=== PATIENT | female | born 1975 | race Caucasian/White ===

== ENCOUNTER → 2018-06-15 13:48 | Outpatient (CLI) | payer OTHER, SELFPAY ==
[2018-06-15 14:41] LABS: ALB/GLOB Ratio 1.1 RATIO (0.9-2.4); AST(SGOT) 15 U/L (15-37); Alanine Aminotransfer ALT/SGPT 17 U/L (13-56); Albumin, Serum 3.8 g/dL (3.2-5.0); Alkaline Phosphatase 77 U/L (45-117); Anion Gap 5 (5-15); BUN 14 mg/dL (7-18); BUN/Creat Ratio 19.3 RATIO (10-20); Calcium,Total 8.5 mg/dL (8.5-10.1); Chloride 104 mmol/L (98-107); Creatinine, Serum 0.72 mg/dL (0.55-1.02); EST Glomerular Filtration Rate 93 mL/min (>60); Est Glom Filt Rate - Afr Amer 113 mL/min (>60); Globulin 3.6 g/dL (2.2-4.2); Glucose 98 mg/dL (74-106); Potassium 4.2 mmol/L (3.5-5.1); Protein, Total 7.4 g/dL (6.4-8.2); Sodium Level 138 mmol/L (136-145)
[2018-06-15 14:43] LABS: Absolute Lymphocyte Count 1.66 X10^3/ul (0.83-4.51); Absolute Neutrophil Count 6.4 X10^3/uL (2.0-7.7); Basophil# 0.06 X10^3/uL; Basophil% 0.6 % (0-1); Eosinophil# 0.21 X10^3/uL; Eosinophils% 2.3 % (0-5); Hematocrit 40.1 % (37-47); Hemoglobin 13.4 g/dl (12.0-15.0); Lymphocyte # 1.66 X10^3/ul (4.0); Lymphocyte % 17.9 % (19-41); Mean Corp Hgb Conc 33.4 g/gl (32-36); Mean Corpuscular Hgb 29.8 pg (27.0-32.0); Mean Corpuscular Volume 89.3 fL (81-99); Mean Platelet Vol. 10.4 fl (6.2-12.0); Monocyte# 0.96 X10^3/uL; Monocyte% 10.4 % (0-10); Neutrophil # 6.35 X10^3/uL (2.7-7.7); Neutrophil % 68.7 % (47-70); Platelet Count 337 K/mm3 (150-450); RBC Distribution Width SD 42.4 fl (35.1-43.9); Red Blood Count 4.49 M/mm3 (4.2-5.4); White Blood Count 9.3 K/mm3 (4.4-11.0)
[2018-06-15 14:49] LABS: POSITIVE COUNT NO; POSITIVE DIFFERENTIAL NO; POSITIVE MORPHOLOGY NO
== END ==
PROVIDERS: Family Provider Family Medicine; PCP Family Medicine; Visit Provider Family Medicine
DX: R10.12 Left upper quadrant pain (principal)
CPT/HCPCS: 36415; 80053; 85025

== ENCOUNTER → 2018-06-15 14:29 | Outpatient (CLI) | payer OTHER, SELFPAY ==
--- NOTE | 2018-06-15 14:36 | CT_ITS ---
STUDY: CT ABDOMEN AND PELVIS WITH CONTRAST REASON FOR EXAM: Female, 42 years old. Left upper quadrant and left flank pain. RADIATION DOSAGE (If Supplied By Facility): CTDIvol = ( 14.12 ) mGy, DLP = ( 982.05 ) mGycm TECHNIQUE: Transaxial images were obtained from the dome of the diaphragm to the symphysis pubis with oral contrast. 100ML IV/Oral Isovue 370 was administered. Sagittal and coronal images were reconstructed. Individualized dose optimization techniques were used for this CT. COMPARISON: None. FINDINGS: The visualized lung bases are unremarkable. The visualized portions of the heart are within normal limits. Normal liver. The gallbladder is relatively contracted and suboptimally examined. Normal spleen. Normal pancreas. Normal bilateral adrenal glands. Normal right kidney. Normal left kidney. No definite renal or ureteral stones are seen. There is no hydronephrosis on either side. Normal visualized stomach. Normal small intestine. Moderate fecal retention throughout the colon. The appendix is visualized and appears normal. Normal abdominal aorta. Normal inferior vena cava. Normal retroperitoneum. Normal urinary bladder. Normal visualized uterus. Normal abdominal wall. Degenerative disc disease at L5-S1. Otherwise normal osseous structures. CT/Abdomen/Pelvis WITH Contrast IMPRESSION: There is no definite abnormality seen. No renal or ureteral stones. Incompletely distended and suboptimally evaluated gallbladder. Moderate fecal retention. Electronically Signed: Wyatt Velazquez MD at 17:08 EDT , Service support ,
== END ==
PROVIDERS: Family Provider Family Medicine; PCP Family Medicine; Referring Provider Family Medicine; Visit Provider Family Medicine
DX: R10.12 Left upper quadrant pain (principal)
CPT/HCPCS: 74177; Q9967

== ENCOUNTER → 2020-06-12 | Outpatient (CLI) | payer OTHER, SELFPAY ==
[2016-12-05 08:32] VITALS: BMI 28.9
[2020-06-17 11:15] LABS: HPV Reflexed? NOT INDICATED
== END | disposition home or self-care (01) ==
LOC: LABSPEC 16:02
PROVIDERS: PCP Family Medicine; Visit Provider Obstetrics & Gynecology
DX: Z12.4 Encounter for screening for malignant neoplasm of cervix (principal)
CPT/HCPCS: 88175; G0145

== ENCOUNTER → 2020-07-01 15:34 | Outpatient (CLI) | payer OTHER, SELFPAY ==
--- NOTE | 2020-07-01 15:38 | BI_ITS ---
MAMMOGRAPHY - BILATERAL SCREENING REASON FOR EXAM: Female, 44 years old. Routine annual screening examination. PERTINENT HISTORY: Non-contributory. TECHNIQUE: Digital bilateral breast andrea (3D mammographic acquisition) in the CC and MLO projections. 2-D mediolateral oblique (MLO) and craniocaudad (CC) views of both breasts were obtained. CAD: Full Field Digital Mammography with Computer Added Detection was performed. COMPARISON: Comparison is made with prior study dated 09/01/2016. FINDINGS: Breast Composition: There are scattered areas of fibroglandular density. There are no dominant masses or suspicious calcifications. No other significant abnormalities are identified. There has been no significant change since the prior study. BI/SCRN MAMM (CAD)W/ANDREA BILAT IMPRESSION: Stable bilateral screening mammogram. Yearly follow-up mammogram recommended. (A) ASSESSMENT CATEGORY: BIRADS Category 1: Negative. A letter regarding these results will be sent to the patient by the facility within 30 days. Approximately 10% of breast cancers are not detected by mammography. A normal mammogram should not delay biopsy of a clinically suspicious abnormality. [id number] Electronically Signed: Jose Doyle MD at 8:06 EDT , Service support ,
== END ==
PROVIDERS: PCP Family Medicine; Referring Provider Obstetrics & Gynecology; Visit Provider Obstetrics & Gynecology
DX: Z12.31 Encounter for screening mammogram for malignant neoplasm of breast (principal)
CPT/HCPCS: 77063; 77067

== ENCOUNTER 2021-04-23 14:32 | Outpatient (CLI) | payer OTHER, SELFPAY ==
--- NOTE | 2021-04-23 | EMB_PTH ---
PATIENT: AMAURY FLETCHER LOC: LISA #:[id number] AGE/SX: 45/F ROOM: RE04/23/[address]: Dr. Hunter Purcell MD : 1975 BED: DIS: 04/23/2021 SPEC #: [id number] RECD: 04/23/21 15:26 STATUS: DAVID REHammad #: [id number] REMY: 04/23/21 00:[address]: Hunter Purcell DEPT: SURGICAL PATHOLOGY RECD BY: Mateus Farris ENTERED: 04/26/21 11:08 SP TYPE: ENDOM BX/C MARILYN DR: Dr. Chayo Pereira, DO Tissues: Endometrium, NOS Procedures: Surgery Specimen Level IV HEADER OPERATION: Endometrial biopsy PRE-OP DIAGNOSIS: Abnormal uterine bleeding TISSUE SUBMITTED: Endometrial biopsy MICROSCOPIC DIAGNOSIS Endometrial biopsy: Proliferative endometrium. SJ:lesa 04/27/2021 MICROSCOPIC DESCRIPTION Slides are reviewed. GROSS DESCRIPTION Received in fixative is one container labeled with the patient's name and designated EMB. The specimen consists of multiple fragments of hemorrhagic soft tissue mixed with mucoid tissue that in aggregate measure 2 x 2.5 x 0.1 cm. The specimen is totally submitted in one cassette. / SJ:lesa 04/26/2021 TC:4 CPT: 85976
== END 2021-04-23 23:59 | disposition home or self-care (01) ==
LOC: LABSPEC 14:33
PROVIDERS: PCP Family Medicine; Visit Provider Obstetrics & Gynecology
DX: N93.9 Abnormal uterine and vaginal bleeding, unspecified (principal)
CPT/HCPCS: 88305

== ENCOUNTER → 2021-08-06 | Outpatient (CLI) | payer OTHER, SELFPAY ==
[2021-08-06 17:16] LABS: Absolute Lymphocyte Count 1.57 X10^3/uL (0.83-4.51); Absolute Neutrophil Count 3.8 X10^3/uL (2.0-7.7); Basophil# 0.06 X10^3/uL; Eosinophil# 0.19 X10^3/uL; Hematocrit 40.1 % (37-47); Hemoglobin 13.4 g/dL (12.0-15.0); Lymphocyte # 1.57 X10^3/ul (0.83-4.51); Lymphocyte % 24.9 % (19-41); Mean Corp Hgb Conc 33.4 g/dL (32-36); Mean Corpuscular Volume 89.7 fL (81-99); Mean Platelet Vol. 10.2 fl (6.2-12.0); Monocyte# 0.67 X10^3/uL; Monocyte% 10.6 % (0-10); NRBC Flagged by Analyzer 0 % (0-5); Neutrophil # 3.81 X10^3/uL (2.7-7.7); Neutrophil % 60.3 % (47-70); Platelet Count 308 K/mm3 (150-450); RBC Distribution Width CV 12.9 % (11.6-14.6); RBC Distribution Width SD 42.7 fl (35.1-43.9); Red Blood Count 4.47 M/mm3 (4.2-5.4); White Blood Count 6.3 K/mm3 (4.4-11.0)
[2021-08-06 17:39] LABS: Erythrocyte Sedimentation Rate 7 mm/hr (0-30)
[2021-08-06 18:27] LABS: Albumin, Serum 3.8 g/dL (3.2-5.0); BUN 22 mg/dL (7-18); BUN/Creat Ratio 30.4 RATIO (10-20); Creatinine, Serum 0.72 mg/dL (0.55-1.02); EST Glomerular Filtration Rate 92 mL/min (>60); Est Glom Filt Rate - Afr Amer 111 mL/min (>60); Globulin 3.7 g/dL (2.2-4.2); Glucose 93 mg/dL (74-106); Protein, Total 7.5 g/dL (6.4-8.2)
[2021-08-06 18:28] LABS: AST(SGOT) 36 U/L (15-37); Alanine Aminotransfer ALT/SGPT 66 U/L (13-56); Alkaline Phosphatase 86 U/L (45-117); Anion Gap 3 (5-15); CRP < 2.90 mg/L (0.0-3.0); Chloride 105 mmol/L (98-107); Free T3 2.9 pg/mL (2.18-3.98); LDH 201 U/L (84-246); Potassium 3.8 mmol/L (3.5-5.1); Sodium Level 138 mmol/L (136-145); T4 Free Direct 1.08 ng/dL (0.76-1.46); Thyroid Stim Hormone (TSH) 0.81 uIU/mL (0.358-3.74)
[2021-08-09 15:08] LABS: Endomysial Antibody IgA Negative (Negative)
[2021-08-09 18:24] LABS: Immunoglobulin A 241 mg/dL (87-352); t-Transglutaminase IgA <2 U/mL (0-3)
[2021-08-16 11:26] LABS: Albumin 3.8 g/dL (2.9-4.4); Alpha-1-Globulins 0.3 g/dL (0.0-0.4); Alpha-2-Globulins 0.6 g/dL (0.4-1.0); Anti-Centromere B Ab <0.2 AI (0.0-0.9); Anti-Chromatin <0.2 AI (0.0-0.9); Anti-Jo <0.2 AI (0.0-0.9); Anti-Scleroderma-70 AB <0.2 AI (0.0-0.9); Beef <0.10 kU/L (Class 0); Corn <0.10 kU/L (Class 0); Cytoplasmic Ab (C-ANCA) <1:20 titer (Neg:<1:20); Egg, Whole <0.10 kU/L (Class 0); Gamma Globulin 1.2 g/dL (0.4-1.8); Immunoglobulin A 231 mg/dL (87-352); Immunoglobulin E 74 IU/mL (6-495); Immunoglobulin G 1188 mg/dL (586-1602); Immunoglobulin M 80 mg/dL (26-217); Milk (Cow) <0.10 kU/L (Class 0); PROEL- TOTAL PROTEIN 6.9 g/dL (6.0-8.5); Peanut <0.10 kU/L (Class 0); Pork <0.10 kU/L (Class 0); RNP Ab <0.2 AI (0.0-0.9); SJOGREN'S Anti-SS-A test < 0.2 AI (0.0-0.9); SJOGREN'S Anti-SS-B test < 0.2 AI (0.0-0.9); Smith Ab <0.2 AI (0.0-0.9); Soybean <0.10 kU/L (Class 0); Wheat <0.10 kU/L (Class 0)
[2021-08-16 18:02] LABS: Anti-dsDNA Ab <1 IU/mL (0-9); Chocolate <0.10 kU/L (Class 0); Perinuclear Ab (P-ANCA) <1:20 titer (Neg:<1:20)
== END | disposition home or self-care (01) ==
LOC: LAB 16:02
PROVIDERS: PCP Family Medicine; Visit Provider Internal Medicine Gastroenterology
DX: R10.9 Unspecified abdominal pain (principal)
CPT/HCPCS: 36415; 80053; 82533; 82784; 82785; 83516; 83615; 84165; 84439; 84443; 84481; 85025; 85652; 86003; 86005; 86140; 86225; 86235; 86255; 86256; 86334

== ENCOUNTER → 2021-08-12 | Outpatient (CLI) | payer OTHER, SELFPAY ==
--- NOTE | 2021-08-12 15:05 | BI_ITS ---
MAMMOGRAPHY - BILATERAL SCREENING REASON FOR EXAM: Female, 45 years old. Routine annual screening examination. PERTINENT HISTORY: Non-contributory. TECHNIQUE: Digital bilateral breast andrea (3D mammographic acquisition) in the CC and MLO projections. 2-D mediolateral oblique (MLO) and craniocaudad (CC) views of both breasts were obtained. CAD: Full Field Digital Mammography with Computer Added Detection was performed. COMPARISON: Mammogram from 07/01/2020, 09/01/2016. FINDINGS: Breast Composition: There are scattered areas of fibroglandular density. There are no dominant masses or suspicious calcifications. No other significant abnormalities are identified. There has been no significant change since the prior study. BI/SCRN MAMM (CAD)W/ANDREA BILAT IMPRESSION: Stable bilateral screening mammogram. Yearly follow-up mammogram recommended. (A) ASSESSMENT CATEGORY: BIRADS Category 1: Negative. A letter regarding these results will be sent to the patient by the facility within 30 days. Approximately 10% of breast cancers are not detected by mammography. A normal mammogram should not delay biopsy of a clinically suspicious abnormality. [id number] Electronically Signed: Liam Hernandez, at 15:04 EDT ,
== END | disposition home or self-care (01) ==
LOC: OPBI 15:05
PROVIDERS: PCP Family Medicine; Visit Provider Obstetrics & Gynecology
DX: Z12.31 Encounter for screening mammogram for malignant neoplasm of breast (principal)
CPT/HCPCS: 77063; 77067

== ENCOUNTER 2021-10-07 06:31 | Day surgery (SDC) | payer OTHER, SELFPAY ==
[2021-10-07] VITALS (7 sets, daily range): BP systolic 101–148; BP diastolic 67–87; PULSE 54–83; RESP 16–18; TEMP 36.3–36.4; O2SAT 99–100; BMI 30.9
--- NOTE | 2021-10-07 06:34 | PCM.HP.BLA ---
History and Physical Date of Admission: 10/07/21 AMAURY FLETCHER, is a 45 F who presents to the office today for Initial consult. Amaury established with this clinic 6.05.25 with referral from her PCP for evaluation of left abdominal pain that radiates to her back with onset 2018 with initial pain being in her left back. COVID in with subsequent tooth infection (dental work delayed because of COVID infection) and root canal with two antibiotics used; but then had increased LLQ pain. Has attempted FODMAP diet which was very helpful with pain; if she does not follow with diet triggers she has issues. PCP gave order for celiac testing but has not done this as she was told she needed to eat wheat for a week prior; she avoids wheat, but is not strict about this. Wheat and milk cause her to have diarrhea. Notes if she does not have enough fiber in her diet she has slower bowels, she manages her stools with diet. Allergy to wheat (phlegm, redness, brain fog) and dairy. Has begun avoiding apples, cabbage, peaches, peanutbutter. PMH anxiety; HTN; insomnia; MTHFR gene mutation (Dr. Fisher); uterine fibroids. FH includes sister with bowel issues and dairy intolerance. Her daughter has similar issues. CT abd/pel 06.15.18 finding moderate stool throughout colon; degenerative disc disease in the lower back. ROS Const Constitutional: No anorexia, fatigue, fever(s), weight change or sleep problems Eyes Eyes: No change in vision ENT ENT: No abnormal hearing, difficulty swallowing, mouth lesions, tongue swelling or throat swelling Resp Respiratory: No cough or shortness of breath Cardio Cardiology: No chest pain at rest, chest pain with exertion, shortness of breath or dyspnea on exertion Gastro GI: No difficulty swallowing Genitourinary-Female: No difficulty urinating or burning urination Musc Musculoskeletal: No joint pain, joint swelling, muscle weakness or decreased muscle mass Skin Skin: No hair loss in leg, yellowing of the eye, itchy eyes, rash, skin ulcer or skin swelling Neuro Neurology: No abnormal hearing, abnormal movements, confusion, unsteady gait/balance or memory loss Psych Psychiatric: No anxiety, No confusion and No memory loss Endo Endocrine: No fatigue or weight change Aller/Imm Allergy/Immunologic: No itchy eyes, throat swelling or tongue swelling Anthony/Lymp Hematologic/Lymphatic: No easy bleeding, easy bruising or enlarged lymph nodes Exam Const General: cooperative and comfortable Nutritional Appearance: average body habitus and well nourished HENMT Head: normal to inspection Ears: hearing grossly normal bilaterally Nose: external nose normal Face and sinus: normal facial exam Mouth: oral mucosae normal Throat: posterior oropharynx normal Eyes General: appearance normal, both eyes and all related structures Neck Neck: normal visual inspection Chest Chest palpation & inspection: normal inspection of the chest and normal palpation of entire chest wall Resp Effort & Inspection: normal respiratory effort Auscultation: Bilateral: Clear to Auscultation Cardio Palpation: normal PMI Rate: regular rate Rhythm: regular rhythm GI Inspection: normal to inspection Auscultation: normal bowel sounds Percussion: normal to percussion Palpation: no hepatosplenomegaly Skin General: no rashes or lesions noted Neuro General: patient alert Extrem General: normal to inspection Psych Affect: normal affect Quality Reporting Tobacco Screening ([facility]) Smoking Status: Former smoker Assessment and Plan Assessment and Plan (1) Abdominal pain: ?Status:?Acute ? ? ? Orders:?Orders: ? Colonoscopy Today ? ? ? EGD Today ? ? ? Comprehensive Metabolic Profil Today ? ? ? CRP Today ? ? ? LDH Today ? ? ? CBC W/Diff, Automated Today ? ? ? Erythrocyte Sed Rate Today ? ? ? Allergen, Rast Food Profile Today ? ? ? JAVAN Comprehensive Panel Today ? ? ? ANCA Today ? ? ? Celiac Disease Profile Today ? ? ? Immunoglobulins G/A/M/E Today ? ? ? BONNIE + Protein Elect, Serum Today ? ? ? CORTISOL SERUM Today ? ? ? Free T3 Today ? ? ? T4 Free Direct Today ? ? ? Thyroid Stim Hormone (TSH) Today ?Plan - Dr. Guerra Friend, DO: I am not sure if her abdominal pain has to do with constipation.? She does have what appears to be a gluten intolerance.? She should get evaluated for celiac disease with biochemical testing and biopsies.? She should also be evaluated for eosinophilic disease such as eosinophilic gastroenteritis.? We will check for ANCA associated vasculitis is with blood work and possibly imaging.? Due to the fact that she is having weight issues we will check a serum cortisol along with thyroid studies.? She will undergo an upper endoscopy for evaluation of her upper lower GI tract. I have re-examined the patient. There are no clinical changes since date of exam.
[2021-10-07] MEDS: Lactated Ringers 1,000 ML 15 ML IV (06:51)
--- NOTE | 2021-10-07 07:15 | COLBX_PTH ---
PATIENT: AMAURY FLETCHER LOC: EN U#:[id number] AGE/SX: 45/F ROOM: RE10/07/[address]: Dr. Charlie Juarez DO : 1975 BED: DIS: 10/07/2021 SPEC #: [id number] RECD: 10/07/21 10:17 STATUS: DAVID SCOOBY #: [id number] REMY: 10/07/21 07:[address]: Charlie Juarez DEPT: SURGICAL PATHOLOGY RECD BY: Enedina Hernandez ENTERED: 10/07/21 10:56 SP TYPE: COLON BX OTHR DR: Dr. Diandra Zeng MD Tissues: A - Duodenum, NOS B - Gastric mucous membrane C - Esophagus, NOS D - Ileum, NOS E - COLON BIOPSY F - Sigmoid colon biopsy Procedures: Special Stain Group II Surgery Specimen Level IV Alcian Blue/PAS (control) HEADER OPERATION: Colonoscopy, EGD ([facility]) with biopsies PRE-OP DIAGNOSIS: Abdominal pain TISSUE SUBMITTED: A - Duodenum biopsy, B - Antrum biopsy for H. pylori and path, C - Distal esophagus biopsy, D - Terminal ileum biopsy, E - Hepatic flexure biopsy, F - Sigmoid biopsy MICROSCOPIC DIAGNOSIS A. Duodenum, biopsy: No pathologic change. B. Gastric antrum, biopsy: Mild chronic gastritis. See comment. C. Distal esophagus, biopsy: Fragments of gastric mucosa with mild chronic inflammation. No evidence of goblet cell metaplasia. See comment. D. Terminal ileum, biopsy: No pathologic change. See comment. E. Colon at hepatic flexure, biopsy: No pathologic change. F. Sigmoid colon, biopsy: No pathologic change. AM:lesa 10/08/2021 COMMENT B. The results of immunohistochemistry for Helicobacter pylori will be reported separately ([id number]). C. Alcian blue/PAS stain with matched control supports the above diagnosis. D. Benign lymphoid aggregates are present. MICROSCOPIC DESCRIPTION Slides are reviewed. GROSS DESCRIPTION A - Received in fixative is one container labeled with the patient's name and designated duodenum biopsy. The specimen consists of two irregular fragments of light caldwell soft tissue that in aggregate measure 0.8 x 0.7 x 0.2 cm. The specimen is totally submitted in one cassette. B - Received in fixative is one container labeled with the patient's name and designated antrum biopsy. The specimen consists of multiple irregular fragments of light caldwell soft tissue that in aggregate measure 1 x 0.5 x 0.1 cm. The specimen is totally submitted in one cassette. C - Received in fixative is one container labeled with the patient's name and designated distal esophagus biopsy. The specimen consists of two irregular fragments of light caldwell soft tissue that in aggregate measure 1.5 x 0.3 x 0.1 cm. The specimen is totally submitted in one cassette. D - Received in fixative is one container labeled with the patient's name and designated terminal ileum biopsy. The specimen consists of multiple irregular fragments of light caldwell soft tissue that in aggregate measure 1 x 0.5 x 0.1 cm. The specimen is totally submitted in one cassette. E - Received in fixative is one container labeled with the patient's name and designated hepatic flexure biopsy. The specimen consists of two irregular fragments of light caldwell soft tissue that in aggregate measure 0.8 x 0.2 x 0.1 cm. The specimen is totally submitted in one cassette. F - Received in fixative is one container labeled with the patient's name and designated sigmoid biopsy. The specimen consists of multiple irregular fragments of light caldwell soft tissue that in aggregate measure 1 x 0.2 x 0.1 cm. The specimen is totally submitted in one cassette. / AM:lesa 10/07/2021 TC:3 CPT: 53987 x6, 35397
--- NOTE | 2021-10-07 07:15 | IMM_PTH ---
PATIENT: AMAURY FLETCHER LOC: EN U#:[id number] AGE/SX: 45/F ROOM: RE10/07/[address]: Dr. Charlie Juarez DO : 1975 BED: DIS: 10/07/2021 SPEC #: [id number] RECD: 10/07/21 11:37 STATUS: DAVID REQ #: [id number] REMY: 10/07/21 07:[address]: Charlie Juarez DEPT: IMMUNOHISTOCHEMISTRY RECD BY: Niecy Kessler ENTERED: 10/07/21 11:38 SP TYPE: IMMUNO OTHR DR: Dr. Diandra Zeng MD Tissues: B - Stomach, NOS Procedures: H Pylori (initial) PHYSICIAN & [place] [phone] SPECIMEN INFORMATION: Tissue Source: B ? Antrum biopsy Clinical Info: Abdominal pain Specimen Number: [id number] CPT code: 11783 METHODOLOGY: Deparaffinized sections of prefer/formalin-fixed tissue or PAP/DQ stained slides are incubated with monoclonal/polyclonal antibodies/oligonucleotide probes. Localization is made via biotin free immunoperoxidase method. Appropriate controls are performed and reacted as expected. Results on target cell population are indicated in the following table: RESULTS: ANTIBODY / CLONE RESULT Block B H Pylori (polyclonal) negative These tests were developed and their performance characteristics determined by [facility]. They may not have been cleared or approved by the U.S. Food and Drug Administration. The FDA has determined that such clearance or approval is not necessary. The above immunohistochemical/dualISH markers are ordered and reviewed by the Pathologist. INTERPRETATION: B. Antrum, biopsy: Negative for Helicobacter pylori organisms. AM:lesa 10/08/2021
--- NOTE | 2021-10-07 08:04 | OP.EGD_ITS ---
Patient Name: Radha Michaels Procedure Date: 10/07/2021 7:22 AM Date of : 1975 Age: 45 Procedure: Upper GI endoscopy Indications: Functional Dyspepsia, Failure to respond to medical treatment Providers: Charlie Juarez DO Medicines: Monitored Anesthesia Care Patient Profile: This is a 45 year old female. Refer to note in patient chart for documentation of history and physical. Patient has symptoms of chronic abdominal cramping, chronic epigastric abdominal pain and chronic dyspepsia. Complications: No immediate complications. Procedure: Pre-Anesthesia Assessment: - Prior to the procedure, a History and Physical was performed, and patient medications and allergies were reviewed. The risks and benefits of the procedure and the sedation options and risks were discussed with the patient. All questions were answered and informed consent was obtained. Patient identification and proposed procedure were verified by the physician in the pre-procedure area. Mental Status Examination: alert and oriented. Airway Examination: normal oropharyngeal airway and neck mobility. Respiratory Examination: clear to auscultation. CV Examination: normal. Prophylactic Antibiotics: The patient does not require prophylactic antibiotics. Prior Anticoagulants: The patient has taken no previous anticoagulant or antiplatelet agents. After reviewing the risks and benefits, the patient was deemed in satisfactory condition to undergo the procedure. The anesthesia plan was to use moderate sedation / analgesia (conscious sedation). Immediately prior to administration of medications, the patient was re-assessed for adequacy to receive sedatives. The heart rate, respiratory rate, oxygen saturations, blood pressure, adequacy of pulmonary ventilation, and response to care were monitored throughout the procedure. The physical status of the patient was re-assessed after the procedure. After obtaining informed consent, the endoscope was passed under direct vision. Throughout the procedure, the patient's blood pressure, pulse, and oxygen saturations were monitored continuously. The colonoscope was introduced through the mouth, and advanced to the second part of duodenum. The upper GI endoscopy was accomplished without difficulty. The patient tolerated the procedure well. Scope In: Scope Out: 7:42:45 AM Findings: The Z-line was irregular and was found 37 cm from the incisors. Biopsies were taken with a cold forceps for histology. Verification of patient identification for the specimen was done. Estimated blood loss was minimal. Patchy mildly erythematous mucosa without bleeding was found in the gastric antrum. Biopsies were taken with a cold forceps for histology. Verification of patient identification for the specimen was done. Estimated blood loss was minimal. The second portion of the duodenum was normal. Biopsies were taken with a cold forceps for histology. Verification of patient identification for the specimen was done. Estimated blood loss was minimal. Impression: - Z-line irregular, 37 cm from the incisors. Biopsied. - Erythematous mucosa in the antrum. Biopsied. - Normal second portion of the duodenum. Biopsied. Recommendation: - Written discharge instructions were provided to the patient. - The signs and symptoms of potential delayed complications were discussed with the patient. - Patient has a contact number available for emergencies. - Return to normal activities tomorrow. - Resume previous diet. - Continue present medications. - Await pathology results. Procedure Code(s): --- Professional --- 79042, Esophagogastroduodenoscopy, flexible, transoral; with biopsy, single or multiple CPT copyright 2017 [employer]. All rights reserved. The codes documented in this report are preliminary and upon executive business coach review may be revised to meet current compliance requirements. Charlie Juarez DO 10/07/2021 8:04:48 AM This report has been signed electronically. Number of Addenda: 1 Note Initiated On: 10/07/2021 7:22 AM Addendum Number: 1 Addendum Date: 12/09/2021 6:29:22 AM MAC was used as sedation for this procedure. Charlie Juarez DO 12/09/2021 6:29:26 AM This report has been signed electronically.
--- NOTE | 2021-10-07 08:05 | OP.CCLET_ITS ---
12/09/2021 Diandra Zeng [place] [id number] [place] [address] Re : Upper GI endoscopy procedure for Radha Michaels Dear Dr. Zeng This procedure was performed on October. My impressions and recommendations are as follows: Impressions : - Z-line irregular, 37 cm from the incisors. Biopsied. - Erythematous mucosa in the antrum. Biopsied. - Normal second portion of the duodenum. Biopsied. Recommendations : - Written discharge instructions were provided to the patient. - The signs and symptoms of potential delayed complications were discussed with the patient. - Patient has a contact number available for emergencies. - Return to normal activities tomorrow. - Resume previous diet. - Continue present medications. - Await pathology results. My findings are described in the full procedure note, which is enclosed. If I can be of further assistance, please feel free to contact me at . Sincerely, Charlie Juarez, 10/07/2021 8:04:48 AM This report has been signed electronically.
--- NOTE | 2021-10-07 08:11 | OP.COLON_ITS ---
Patient Name: Radha Michaels Procedure Date: 10/07/2021 7:43 AM Date of : 1975 Age: 45 Procedure: Colonoscopy Indications: Abdominal pain in the left lower quadrant, Abdominal pain in the left upper quadrant Providers: Charlie Juarez DO Medicines: Monitored Anesthesia Care Patient Profile: This is a 45 year old female. Refer to note in patient chart for documentation of history and physical. Patient has symptoms of chronic abdominal cramping, chronic epigastric abdominal pain and chronic dyspepsia. Last Colonoscopy: date unknown. Unable to locate last colonoscopy report. Complications: No immediate complications. Procedure: Pre-Anesthesia Assessment: - Prior to the procedure, a History and Physical was performed, and patient medications and allergies were reviewed. The risks and benefits of the procedure and the sedation options and risks were discussed with the patient. All questions were answered and informed consent was obtained. Patient identification and proposed procedure were verified by the physician in the pre-procedure area. Mental Status Examination: alert and oriented. Airway Examination: normal oropharyngeal airway and neck mobility. Respiratory Examination: clear to auscultation. CV Examination: normal. Prophylactic Antibiotics: The patient does not require prophylactic antibiotics. Prior Anticoagulants: The patient has taken no previous anticoagulant or antiplatelet agents. After reviewing the risks and benefits, the patient was deemed in satisfactory condition to undergo the procedure. The anesthesia plan was to use moderate sedation / analgesia (conscious sedation). Immediately prior to administration of medications, the patient was re-assessed for adequacy to receive sedatives. The heart rate, respiratory rate, oxygen saturations, blood pressure, adequacy of pulmonary ventilation, and response to care were monitored throughout the procedure. The physical status of the patient was re-assessed after the procedure. - General anesthesia under the supervision of a TRACTOR CRANE ENGINEER was determined to be medically necessary for this procedure based on review of the patient's medical history, medications, and prior anesthesia history. After I obtained informed consent, the scope was passed under direct vision. Throughout the procedure, the patient's blood pressure, pulse, and oxygen saturations were monitored continuously. The colonoscope was introduced through the anus and advanced to the cecum, identified by appendiceal orifice and ileocecal valve. The colonoscopy was performed without difficulty. The patient tolerated the procedure well. The quality of the bowel preparation was good. Scope In: 7:45:13 AM Scope Withdrawal Time 0 hours 10 minutes 9 seconds Scope Out: 8:00:07 AM Total Procedure Duration Time 0 hours 14 minutes 54 seconds Findings: The perianal and digital rectal examinations were normal. An area of mildly congested mucosa was found in the sigmoid colon, at the splenic flexure and at the hepatic flexure. Biopsies were taken with a cold forceps for histology. Verification of patient identification for the specimen was done. Estimated blood loss was minimal. The terminal ileum appeared normal. Biopsies were taken with a cold forceps for histology. Verification of patient identification for the specimen was done. Estimated blood loss was minimal. Impression: - Congested mucosa in the sigmoid colon, at the splenic flexure and at the hepatic flexure. Biopsied. - The examined portion of the ileum was normal. Biopsied. Recommendation: - Discharge patient to home. - Resume previous diet. - Continue present medications. - Await pathology results. - Repeat colonoscopy in 5 years for surveillance. Procedure Code(s): --- Professional --- 71398, Colonoscopy, flexible; with biopsy, single or multiple CPT copyright 2017 [employer]. All rights reserved. The codes documented in this report are preliminary and upon assistant womens volleyball coach review may be revised to meet current compliance requirements. Charlie Juarez DO 10/07/2021 8:10:46 AM This report has been signed electronically. Number of Addenda: 1 Note Initiated On: 10/07/2021 7:43 AM Addendum Number: 1 Addendum Date: 12/09/2021 6:29:35 AM MAC was used as sedation for this procedure. Charlie Juarez DO 12/09/2021 6:29:39 AM This report has been signed electronically.
--- NOTE | 2021-10-07 08:12 | OP.CCLET_ITS ---
12/09/2021 Diandra Zeng [place] [id number] [address] Re : Colonoscopy procedure for Radha Joséultz Dear Dr. Zeng This procedure was performed on October. My impressions and recommendations are as follows: Impressions : - Congested mucosa in the sigmoid colon, at the splenic flexure and at the hepatic flexure. Biopsied. - The examined portion of the ileum was normal. Biopsied. Recommendations : - Discharge patient to home. - Resume previous diet. - Continue present medications. - Await pathology results. - Repeat colonoscopy in 5 years for surveillance. My findings are described in the full procedure note, which is enclosed. If I can be of further assistance, please feel free to contact me at . Sincerely, Charlie Juarez, 10/07/2021 8:10:46 AM This report has been signed electronically.
== END 2021-10-07 08:51 | disposition home or self-care (01) ==
LOC: EN 06:32 → AC 06:32
PROVIDERS: PCP Family Medicine; Referring Provider Family Medicine; Visit Provider Internal Medicine Gastroenterology
PROC: 0DJD8ZZ Inspection of Lower Intestinal Tract, Via Natural or Artificial Opening Endoscopic (ICD-10-PCS; CPT 45378; principal; 2021-10-07 07:10)
DX: K29.70 Gastritis, unspecified, without bleeding (principal); K20.90 Esophagitis, unspecified without bleeding; K63.89 Other specified diseases of intestine; I10 Essential (primary) hypertension; K30 Functional dyspepsia; Z87.891 Personal history of nicotine dependence
CPT/HCPCS: 45380; 43239; 88305; 88313; 88342; J7120; J2405

== ENCOUNTER → 2022-07-04 | Outpatient (CLI) | payer OTHER, SELFPAY ==
[2022-07-11 14:08] LABS: HPV APTIMA, High Risk Negative (Negative)
== END | disposition home or self-care (01) ==
LOC: LABSPEC 16:54
PROVIDERS: PCP Family Medicine; Visit Provider Nurse Practitioner Women's Health
DX: Z12.4 Encounter for screening for malignant neoplasm of cervix (principal)
CPT/HCPCS: 87624; 88175; G0145

== ENCOUNTER → 2022-08-16 | Outpatient (CLI) | payer OTHER, SELFPAY ==
--- NOTE | 2022-08-16 14:17 | BI_ITS ---
MAMMOGRAPHY - BILATERAL SCREENING REASON FOR EXAM: Female, 46 years old. Routine annual screening examination. PERTINENT HISTORY: Non-contributory. TECHNIQUE: Digital bilateral breast andrea (3D mammographic acquisition) in the CC and MLO projections. 2-D mediolateral oblique (MLO) and craniocaudad (CC) views of both breasts were obtained. CAD: Full Field Digital Mammography with Computer Added Detection was performed. COMPARISON: Comparison is made with prior study dated August 12, 2021 and July 01, 2020. FINDINGS: Breast Composition: There are scattered areas of fibroglandular density. There are no dominant masses or suspicious calcifications. No other significant abnormalities are identified. There has been no significant change since the prior study. BI/SCRN MAMM (CAD)W/ANDREA BILAT IMPRESSION: Stable bilateral screening mammogram. Yearly follow-up mammogram recommended. (A) ASSESSMENT CATEGORY: BIRADS Category 1: Negative. A letter regarding these results will be sent to the patient by the facility within 30 days. Approximately 10% of breast cancers are not detected by mammography. A normal mammogram should not delay biopsy of a clinically suspicious abnormality. [id number] Electronically Signed: Jose Doyle MD at 14:58 EDT ,
== END | disposition home or self-care (01) ==
LOC: OPBI 14:17
PROVIDERS: PCP Family Medicine; Visit Provider Nurse Practitioner Women's Health
DX: Z12.31 Encounter for screening mammogram for malignant neoplasm of breast (principal)
CPT/HCPCS: 77063; 77067

== ENCOUNTER → 2023-08-28 | Outpatient (CLI) | payer OTHER, SELFPAY ==
--- NOTE | 2023-08-28 10:27 | BI_ITS ---
MAMMOGRAPHY - BILATERAL SCREENING REASON FOR EXAM: Female, 47 years old. Routine annual screening examination. PERTINENT HISTORY: Non-contributory. TECHNIQUE: Digital bilateral breast andrea (3D mammographic acquisition) in the CC and MLO projections. 2-D mediolateral oblique (MLO) and craniocaudad (CC) views of both breasts were obtained. CAD: Full Field Digital Mammography with Computer Added Detection was performed. COMPARISON: Comparison is made with prior study dated August 16, 2022 and August 12, 2021. FINDINGS: Breast Composition: There are scattered areas of fibroglandular density. There are no dominant masses or suspicious calcifications. No other significant abnormalities are identified. There has been no significant change since the prior study. BI/SCRN MAMM (CAD)W/ANDREA BILAT IMPRESSION: Stable bilateral screening mammogram. Yearly follow-up mammogram recommended. (A) ASSESSMENT CATEGORY: BIRADS Category 1: Negative. A letter regarding these results will be sent to the patient by the facility within 30 days. Approximately 10% of breast cancers are not detected by mammography. A normal mammogram should not delay biopsy of a clinically suspicious abnormality. [id number] Electronically Signed: Jose Doyle MD at 12:49 EDT ,
== END | disposition home or self-care (01) ==
LOC: OPBI 10:27
PROVIDERS: PCP Family Medicine; Referring Provider Nurse Practitioner Women's Health; Visit Provider Nurse Practitioner Women's Health
DX: Z12.31 Encounter for screening mammogram for malignant neoplasm of breast (principal)
CPT/HCPCS: 77063; 77067

== ENCOUNTER 2024-09-27 15:30 | Outpatient (RCR) | payer OTHER, SELFPAY ==
--- NOTE | 2024-09-11 08:50 | HP.PTEVAL ---
Patient's Visit Information Visit Information Visit Information: AMAURY FLETCHER is a 48 year old F referred to Physical Therapy by Dr. Carlyn Taylor MD with a diagnosis of Neck pain with R UE radiculopathy. Date of Evaluation: 09/10/24 Physical Therapist: Taz Batres, PT, ATC Visit Plan Frequency: 2x /Week Duration: 2-4 Weeks Plan: Trialed Ctx with 16#/8#, 30 sec/10 sec x 10 min. Assess benefit of Tx. Recheck c/s retraction. Consider using DTR next visit. Subjective Subjective: Pt reports she has had neck pain and intermittent R UE numbness for 3-4 years. Pt notes the pain was not as bad at that time, but has progressively worsened over this span. Pt admits she has put this off for some time secondary to having younger kids and and busy life style. Pt reports she has the most pain with watching TV, sleeping, and while driving. Pt denies any trauma or injury to her neck and R UE at this time. Pt also notes she gets CHUA's at the base of her head. Pt reports her headaches will radiate up the aback of her head. Pt notes she has had an x-ray which reveals DDD. Pt [id number] she does have sleep difficulty secondary to pain. Pt reports No PMHx of neck pain or R UE pain. Pt reports she doesnt really have pain as long as she keeps moving. 1/10 pain currently with prednisone, 4/10 at worst. Pain Neck pain: Pain Intensity (Out of 10): 1 Pain Intensity Range: 4 Objective Objective: Neuro: R UE c6 dermtome is hyposensitive to light touch. All other B UE sensation is WNL to light touch. Palpation: Sig muscle guarding throughout lower cervical spine. No obvious deformity noted at this time. MMT: B UE's are grossly rated at 5/5 throughout ROM: Pt is moderately limited with B SB, retraction, and extension ROM. All other motions are WNL Repeated movements: RPIS 10x3 NE, RRIS 10x3 provoked pain, referred to scap region. Manual traction decreased pain. Balance/Special Test Scores Oswestry Neck Score: 20 Goals Goal 1:: Decrease neck pain x 50% to aid with sleep Goal Time Frame: 4-6 Weeks Goal 2:: Decrease the Frequency and intensity of R UE radiculopathy to aid with IADL's Goal Time Frame: 4-6 Weeks Goal 3:: I with HEP Goal Time Frame: 4-6 Weeks Rehabilitation Potential Physical Therapy Diagnosis: Pt has neck pain and R UE radiculopathy secondary to c/s disc derangement Rehabilitation Potential: Good Anticipated Interventions Patient/Client Instruction: Educate patient on: Condition and Plan of Care For the Purpose of:: To improve self management Therapeutic Exercise to Include: Strength training, Endurance training, Balance training, Active ROM and Ayse Exercises For the Purpose of:: To decrease pain, To increase ROM and To improve muscle performance and motor function Intermittent cervical traction: Yes For the Purpose of:: To decrease pain Text: Thank you for the opportunity to evaluate your patient. For Medicare and Medicare HMO plans, please review the plan of care and approve it. It will need to be FAXED BACK to us at [phone] for Medicare purposes. For Medicare only, by signing this I certify the plan of care. Please let me know if there are questions or concerns regarding this plan of care. Physician Signature: Date:
--- NOTE | 2024-09-27 15:58 | HP.PTREVAL ---
Re-Evaluation Intro: Dr. Carlyn Taylor MD, It has been my pleasure to treat AMAURY FLETCHER over the last 5 visits for Neck pain with R UE radiculopathy. Please see the progress note below for an update on the physical therapy plan of care! Subjective Subjective: Pt reports R arm is still going numb almost every morning. Objective Objective/Function: Neck pain is now 1/10 R UE radiculopathy has only temporarily improved Plan Plan Plan: 09/27/24- Cont with c/s Tx at this time. Incorporate scap stab ex's at this time. Hold scheduling until after next DrElia visit Balance/Gait/Functional tests Balance/Special Test Scores Oswestry Neck Score: 20 Goals Goals Goal 1:: Decrease neck pain x 50% to aid with sleep Goal Time Frame: 4-6 Weeks Goal Progress: Goal Met Goal 2:: Decrease the Frequency and intensity of R UE radiculopathy to aid with IADL's Goal Time Frame: 4-6 Weeks Goal Progress: Not Progressing Goal 3:: I with HEP Goal Time Frame: 4-6 Weeks Goal Progress: Goal Met Anticipated Interventions Anticipated Interventions Patient/Client Instruction: Educate patient on: Condition and Plan of Care For the Purpose of:: To improve self management Therapeutic Exercise to Include: Strength training, Endurance training, Balance training, Active ROM and Ayse Exercises For the Purpose of:: To decrease pain, To increase ROM and To improve muscle performance and motor function Intermittent cervical traction: Yes For the Purpose of:: To decrease pain Re-Evaluation Ending Re-evaluation ending: Please do not hesitate to contact me at [phone] by phone or if you have questions or concerns regarding this new plan of care! Sincerely, Taz Batres, PT, ATC
--- NOTE | 2024-12-10 11:42 | HP.PT.NRP ---
Patient Information Patient Information: AMAURY FLETCHER was seen in my office for initial evaluation on 09/10/24. The following Plan of Care was established for this patient: POC Established Initial Frequency: 2x /Week Initial Duration: 2-4 Weeks Anticipated Interventions Patient/Client Instruction: Educate patient on: Condition and Plan of Care For the Purpose of:: To improve self management Therapeutic Exercise to Include: Strength training, Endurance training, Balance training, Active ROM and Ayse Exercises For the Purpose of:: To decrease pain, To increase ROM and To improve muscle performance and motor function Intermittent cervical traction: Yes For the Purpose of:: To decrease pain Last Seen Last Seen: This patient was last seen in our office . Pertinent comments regarding their Physical therapy will appear below: Pt has not returned for greater than 30 days and is discontinued at this time. At this point I will be discontinuing this patient from physical therapy. I would be happy to see this patient again in the future if found appropriate by the physician. Thank you! Taz Batres, PT, ATC Balance/Gait/Functional tests Balance/Special Test Scores Oswestry Neck Score: 20
== END 2024-09-27 19:00 | disposition home or self-care (01) ==
LOC: PT 15:30
PROVIDERS: PCP Internal Medicine; Referring Provider Internal Medicine; Visit Provider Internal Medicine
DX: R20.0 Anesthesia of skin (principal); M50.30 Other cervical disc degeneration, unspecified cervical region
CPT/HCPCS: 97012; 97140; 97161; 97530

== ENCOUNTER 2025-02-12 12:37 | Emergency (ER) | payer OTHER, SELFPAY ==
[2025-02-12 12:38] VITALS: BP 185/94; PULSE 96; RESP 18; TEMP 36.8; O2SAT 100; BMI 34.7
--- NOTE | 2025-02-12 13:08 | ED.VIS.DENTA ---
HPI History of Present Illness Chief Complaint: Dental Detail of Chief Complaint: Dental pain and intermittent dizziness Informant: patient Onset/Context/Timing Onset: Days ( Dental pain for days. She is scheduled for root canal on Monday) Context: Sudden Onset Timing: Continuous and Waxes and wanes Quality: Pain tooth #30 and vertigo Location: Dental and peripheral vertigo Current Severity: Mild Maximum Severity: Severe Worsened by: Cold and hot liquids and change in head position Associated Symptoms Assocated Symptom - Dental: cold sensitivity and hot sensitivity; Negative for fever, jaw swelling or face swelling Narrative Narrative: Patient is a 49-year-old woman. She has history of dental infections. She is seeing her dentist. She is scheduled for root canal on Monday. She has increased pain with cold and hot. She reports more cold and hot. This been going on for 1+ weeks. She denies fever, chills night sweats. She denies inability to open or close her mouth completely. She denies change in voice. Denies drooling. She denies inability to drink liquids or eat solids. She denies facial swelling. She does complain of pain in the right occipital area as well as right ear. She has a cottonball in her external auditory canal on the right. She has no history of medic fever heart murmur. She denies fever or chills. Prior similar symptoms: Yes Recent Illness/Hospitalization: No 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 Insomnia Hypertension Home Medications ?Medication ?Instructions ?Recorded ?Last Taken ?Type ginkgo biloba leaf extract 60 mg 120 mg PO DAILY 11/29/16 Unknown History tablet ginseng 100 mg capsule 100 mg PO DAILY 11/29/16 Unknown History loratadine 10 mg tablet (Allergy 10 mg PO DAILY 11/29/16 Unknown History Relief (loratadine)) melatonin ER 10 mg-pyridoxine HCl 1 ea PO QHS 11/29/16 Unknown History (B6) 10 mg tab, immed-extend release s-adenosylmethionine 400 mg tablet 400 mg PO DAILY 11/29/16 Unknown History (NAE-e) multivitamin 1 tab PO DAILY 10/06/21 Unknown History black cohosh 20 mg tablet 20 mg PO DAILY 07/04/22 Unknown History diazepam 2 mg tablet (Valium) 2 mg PO TID #9 tabs 02/12/25 Unknown Rx oxycodone-acetaminophen 5 mg-325 1 tab PO Q8H PRN pain 4 days #10 02/12/25 Unknown Rx mg tablet (Percocet) tabs Allergy/AdvReac Type Severity Reaction Status Date / Time milk (dairy) Allergy Intermediate NEEDS Verified 02/12/25 12:41 FOLLOW-UP wheat Allergy Intermediate UNK Verified 02/12/25 12:41 horse dander Allergy Hives Verified 02/12/25 12:41 Horse/Equine Containing Allergy Hives Verified 02/12/25 12:41 Products aspirin AdvReac NOSEBLEEDS Verified 02/12/25 12:41 Family History Mother High cholesterol Sister Pulmonary embolism IBS (irritable bowel syndrome) Thrombophilia associated with 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 Surgical History S/P colonoscopy S/P D&C (status post dilation and curettage) H/O cervical polypectomy H/O section Social History household members: spouse and children housing: house number of children: 3 current occupational status: employed current occupation: [employer] Smoking Status: Never smoker alcohol intake: never substance use type: does not use seatbelt use: always do you feel safe at home: Yes 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 ROS ROS ED Constitutional Constitutional ED: Denies chills, fever(s), subjective or sweats Eyes Eyes: Denies blurry vision or change in vision ENT ENT ED: Reports ear pain right and other Details: And HPI narrative ; Denies rhinorrhea or sore throat Cardiovascular Cardiovascular: Denies chest pain or palpitations Respiratory/Chest Respiratory/Chest: Denies cough or dyspnea Gastrointestinal Gastrointestinal: Denies abdominal pain, nausea or vomiting Integumentary Denies rash Neurologic Neurologic: Reports headache(s); Denies paresthesias or weakness Psychiatric Psychiatric: Reports anxiety Endocrine Endocrinology: Denies cold intolerance or heat intolerance Hematologic/Lymphatic Hematologic/Lymphatic: Denies easy bleeding or easy bruising EXAM Physical Exam Const Vital Signs: 02/12/25 12:38 Temperature 98.3 F Temperature Source Oral Pulse Rate 96 Respiratory Rate 18 Blood Pressure 185/94 H Blood Pressure Mean 124 Pulse Ox 100 Oxygen Delivery Method Room Air Positive well nourished and well developed General Appearance ED: well developed and NAD HEENT HEENT Narrative: Ears are normal. External auditory canals normal. TM is normal on the right. Posterior pharynx erythema or exudate. Uvula midline. No deviation tongue or protrusion. She has a On tooth #30. There is no periodontal swelling. There is no abnormality of the floor of the mouth. There is no submandibular lymphadenopathy or anterior cervical lymphadenopathy. Neck is supple. She has no dermatologic lesions noted. Eyes PERRL and EOMs intact bilaterally General Eye ED: Negative for pale conjunctiva or scleral icterus Neck no lymphadenopathy, supple and no JVD Lymph Lymphatic: no lymphadenopathy noted Resp normal respiratory effort and clear to auscultation bilaterally Cardio regular rate, regular rhythm, S1 normal heart sound, S2 normal heart sound and no murmurs Extremity normal to inspection Neuro oriented x3 and CN's II-XII intact bilaterally Sensorium / Orientation: alert Psych Mood & Affect: anxious Skin no rashes or lesions noted and no wounds MDM MDM MDM Narrative Medical decision making narrative: Patient needs dental films, which we do not have access to. Based on her history and physical patient has pulpitis, irreversible symptomatic pulpitis. She was informed not to eat or drink anything cold or hot. She was prescribed pain medicine. At the time when she was asked if she had a question she also told me she is dizzy. She describes dizziness as motion with change in position. For this reason a complete neurologic exam was performed. In addition she had no clonus or Babinski. DTR 2+ bicep, brachialis, tricep, patella and ankle. There is no dysmetria. Wiergate-Hallpike maneuver was negative. She was asymptomatic. She turned her head a certain way and complained of dizziness. Since this is truly paroxysmal and positional and unable to reproduce we will treat with Valium 2 mg 3 times daily. She was prescribed Percocet for her dental pain. She was informed the pain will not resolve until she has root canal work done. She was informed the purpose of the medication is to make the pain tolerable. Treatment and Re-Evaluation Narrative: Patient received her first dose of Percocet and Valium in the emergency department. Discharge Plan Triage Chief Complaint: Dental ED Provider: Alessandro Mares Dx/Rx/DC Orders Clinical Impression: Symptomatic irreversible pulpitis, Benign paroxysmal positional vertigo, Elevated blood-pressure reading without diagnosis of hypertension, Adult BMI 34.0-34.9 kg/sq m Instructions: ED BPV Vertigo, ED Dental Pain, ED Hypertension, To Be Confirmed Prescriptions: New oxycodone-acetaminophen [Percocet] 5-325 mg tablet 1 tab PO Q8H PRN (Reason: pain) 4 Days Qty: 10 0RF diazepam [Valium] 2 mg tablet 2 mg PO TID Qty: 9 0RF No Action black cohosh 20 mg tablet 20 mg PO DAILY ginseng 100 MG capsule 100 mg PO DAILY loratadine [Allergy Relief (loratadine)] 10 MG tablet 10 mg PO DAILY NAE-e 400 MG tablet 400 mg PO DAILY melatonin-pyridoxine HCl (B6) 1 EACH tablet, IR and ER, biphasic 1 ea PO QHS ginkgo biloba leaf extract 60 MG tablet 120 mg PO DAILY multivitamin Tablet 1 tab PO DAILY Primary Care Provider: Carlyn Taylor Referrals: Carlyn Taylor MD [Primary Care Provider, Internal Medicine] - 1-2 Weeks Activity Restrictions/Additional Instructions: Your blood pressure is elevated in the emergency department. You should have this reassessed in 1 to 2 weeks. Avoid drinking anything cold or hot. Take medication as prescribed Keep appointment with dentist/rpg programmer analyst scheduled for this coming Monday. Print Language: Persian Disposition Disposition: Home, Self Care
[2025-02-12 13:29] VITALS: BP 166/102; PULSE 72; RESP 15; TEMP 36.8; O2SAT 100
== END 2025-02-12 13:31 | disposition home or self-care (01) ==
LOC: ED 13:15
PROVIDERS: Emergency Provider Emergency Medicine; PCP Internal Medicine; Visit Provider Emergency Medicine
DX: K04.02 Irreversible pulpitis (principal); H81.10 Benign paroxysmal vertigo, unspecified ear; R03.0 Elevated blood-pressure reading, without diagnosis of hypertension
CPT/HCPCS: 99282

== ENCOUNTER 2025-02-13 13:49 | Observation (INO) | payer OTHER, SELFPAY ==
[2025-02-13] VITALS (9 sets, daily range): BP systolic 102–207; BP diastolic 61–108; PULSE 77–107; RESP 12–18; TEMP 36–36.6; O2SAT 98–100; BMI 34.4; BMI 34.9; BMI 35.1
--- NOTE | 2025-02-13 13:55 | CT_ITS ---
PROCEDURE: STROKE BRAIN/HEAD WITHOUT CONT 02/13/2025 REASON FOR EXAM: NEURO DEFICIT, ACUTE, STROKE SUSPECTED; R SIDED SX TECHNIQUE: Procedure Code: CTBR.ST Modality: CT Procedure: STROKE BRAIN/HEAD WITHOUT CONT Coronal and Sagittal reconstruction series were provided. One or more dose reduction techniques were used (e.g., Automated exposure control, adjustment of the mA and/or kV according to patient size, use of iterative reconstruction technique. RADIATION DOSE SUMMARY: CTDlvol: 45 mGy DLP: 779 mGycm COMPARISON: None FINDINGS: Brain: There is no evidence of hemorrhage, acute ischemia or mass. No extra- axial fluid collection, midline shift or mass effect. CSF Spaces: Normal Sinuses/Mastoids: Clear Bones: No fracture CT/STROKE Brain/Head without Cont IMPRESSION: No acute intracranial abnormality. Stroke Alert: As above The critical findings in the findings and impression above were relayed directl y by me by telephone to Alexander Kulkarni on 02/13/2025 at 2:16 pm with readback verification. Reading Location: [id number]
--- NOTE | 2025-02-13 13:58 | EKG12_ITS ---
Test Reason : STROKE TEAM Blood Pressure : */* mmHG Vent. Rate : 80 BPM Atrial Rate : 80 BPM P-R Int : 162 ms QRS Dur : 76 ms QT Int : 388 ms P-R-T Axes : 8 23 38 degrees QTcB Int : 447 ms Normal sinus rhythm Nonspecific ST abnormality Abnormal ECG Confirmed by ELINA KAPLAN, JAMES ([id number]), acquisitions editor JOSE ALMEIDA ([id number]) on 02/17/2025 6:30:10 AM Referred By: Confirmed By: JAMES ANTOINE MD
--- NOTE | 2025-02-13 13:58 | CT_ITS ---
PROCEDURE: STROKE CTA HEAD AND NECK W/CON 02/13/2025 REASON FOR EXAM: NEURO DEFICIT, ACUTE, STROKE SUSPECTED; R SIDED SX TECHNIQUE: Procedure Code: [id number] Modality: CT Procedure: STROKE CTA HEAD AND NECK W/CON Multiplanar Sagittal and Coronal images were obtained. 3D post processing was performed CONTRAST: Isovue 370 VOLUME: 100 mL One or more dose reduction techniques were used (e.g., Automated exposure control, adjustment of the mA and/or kV according to patient size, use of iterative reconstruction technique). RADIATION DOSE SUMMARY: CTDlvol: 30 mGy DLP: 732 mGycm COMPARISON: Head CT of the same day FINDINGS: Aortic Arch: Normal size and branching pattern. No significant atherosclerotic plaque. Brachiocephalic and Subclavians: Unremarkable RIGHT Carotid: Right CCA: Unremarkable. Right ICA: Unremarkable. Maximum stenosis (NASCET): 0 % Right ECA: Unremarkable. LEFT Carotid: Left CCA: Unremarkable. Left ICA: Unremarkable. Maximum stenosis (NASCET): 0 % Left ECA: Unremarkable. Vertebrals: Codominant. Arise from the subclavians. Both vertebrals form the basilar. RIGHT Vertebral: Unremarkable. LEFT Vertebral: Unremarkable. Anatomy: [place] anatomy is normal. Aneurysm or avm: No intracranial aneurysms or large vascular malformations are identified. Anterior cerebral arteries: Unremarkable. Middle cerebral arteries: No large vessel occlusion. No aneurysm or stenosis. Basilar artery: Unremarkable. Posterior cerebral arteries: Unremarkable. Other major branches of the posterior circulation: Unremarkable. Major venous structures: Unremarkable. Other findings: Neck: No lymphadenopathy. Lungs: Lung apices are clear. Bones: Bones are unremarkable. CT/STROKE CTA Head AND Neck W/Con IMPRESSION: 1. No large vessel occlusion. 2. No aneurysm or stenosis. Reading Location: [id number]
--- NOTE | 2025-02-13 13:58 | ED.RN ---
[facility] CALLED AT [id number]
--- NOTE | 2025-02-13 13:58 | ED.RN ---
PT. TAKEN TO CT IN W/C
--- NOTE | 2025-02-13 13:59 | EDS_ITS ---
HPI History of Present Illness Chief Complaint: Stroke Alert Informant: patient and family Narrative Narrative: 49-year-old female states she is having sudden onset of right visual field cut that started while she was sitting at her computer around 11 AM this morning, 3 hours prior to arrival in triage. Prior to that started yesterday or day before she was having paresthesias throughout the right side of her face that she initially states was in the right lower jaw where she is having a dental issue and needs a root canal, but today that has been throughout the right side of her face is not exactly sure when that happened, all the way up to her eye level. It also goes down to her right neck. She also has had paresthesias in the right upper and lower extremities but that has been present for weeks that she attributes to a chronic cervical DDD issue. She denies any weakness. She was little off balance when trying to walk today. She denies any chest pain, shortness breath, fevers, chills, or other issues except for the tooth pain that she is been having. She is following with a dentist for that. 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 Insomnia Hypertension Home Medications ?Medication ?Instructions ?Recorded ?Last Taken ?Type loratadine 10 mg tablet (Allergy 10 mg PO DAILY Unknown History Relief (loratadine)) melatonin ER 10 mg-pyridoxine HCl 1 ea PO QHS PRN slee p 11/29/16 Unknown History (B6) 10 mg tab, immed-extend release multivitamin 1 tab PO DAILY 10/06/21 Unkn own History oxycodone-acetaminophen 5 mg-325 1 tab PO Q8H PRN pain 4 days #10 02/12/25 Unknown Rx mg tablet (Percocet) tabs diazepam 2 mg tablet (Valium) 2 mg PO TID PRN dizzines s 02/13/25 Unknown History Allergy/AdvReac Type Severity Reaction Status Date / Time milk (dairy) Allergy Intermediate NEEDS Verified 02/13/25 13:51 FOLLOW-UP wheat Allergy Intermediate UNK Verified 02/13/25 13:51 horse dander Allergy Hives Verified 02/13/25 13:51 Horse/Equine Containing Allergy Hives Verified 02/13/25 13:51 Products aspirin AdvReac NOSEBLEEDS Verified 02/13/25 13:51 Family History Mother High cholesterol Sister Pulmonary embolism IBS (irritable bowel syndrome) Thrombophilia associated with 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 Surgical History S/P colonoscopy S/P D&C (status post dilation and curettage) H/O cervical polypectomy H/O section Social History household members: spouse and children housing: house number of children: 3 current occupational status: employed current occupation: [employer] Smoking Status: Never smoker alcohol intake: never substance use type: does not use seatbelt use: always do you feel safe at home: Yes 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 ROS ROS ED Constitutional Constitutional ED: Denies chills or fever(s) Eyes Eyes: Denies change in vision or diplopia ENT ENT ED: Reports dental pain; Denies rhinorrhea or sore throat Cardiovascular Cardiovascular: Denies chest pain or palpitations Respiratory/Chest Respiratory/Chest: Denies cough or dyspnea Gastrointestinal Gastrointestinal: Denies abdominal pain, diarrhea, nausea or vomiting Genitourinary Genitourinary ED: Denies dysuria or hematuria Musculoskeletal Musculoskeletal: Denies back pain or neck pain Integumentary Denies abscess or rash Neurologic Neurologic: Reports paresthesias; Denies headache(s) or weakness Psychiatric Psychiatric: Denies anxiety or suicidal thoughts EXAM Physical Exam Const Vital Signs: 02/13/25 13:50 02/13/25 13:52 02/13/25 13:58 Temperature 97.8 F Temperature Source Temporal Pulse Rate 105 H 107 H Respiratory Rate 18 18 Blood Pressure 207/104 H 190/108 H Blood Pressure Mean 138 135 Pulse Ox 100 100 Oxygen Delivery Method Room Air Room Air Room Air Oxygen Flow Rate (L/min) 02/13/25 14:34 02/13/25 15:00 02/13/25 15:09 Temperature Temperature Source Pulse Rate 87 80 82 Respiratory Rate 18 12 14 Blood Pressure 151/79 H 144/86 H 144/86 H Blood Pressure Mean 103 105 105 Pulse Ox 100 98 100 Oxygen Delivery Method Non-Rebreather Nasal Cannula Oxygen Flow Rate (L/min) 15 8 Positive well nourished and well developed General Appearance ED: well developed and NAD HEENT Reports moist mucous membranes normocephalic and atraumatic Eyes PERRL and EOMs intact bilaterally Neck full ROM and supple Resp normal respiratory effort and clear to auscultation bilaterally Cardio regular rate, regular rhythm and no murmurs GI non-tender and non-distended Auscultation: normoactive bowel sounds Palpation: soft Back/Spine no CVA tenderness General Back: other FROM Extremity normal to inspection General Extremety ED: Negative for edema, pulses abnormal or tenderness General Extremity: Negative for edema or pulses abnormal Neuro oriented x3, CN's II-XII intact bilaterally and no sensory deficits noted Neuro Narrative: Able to stand a little off balance. Normal [id number] and [id number] bilaterally. Normal speech. Paresthesias right side of body. Visual tapia are grossly intact. Sensorium / Orientation: awake and alert Motor Exam: strength 5/5 throughout Psych Mood & Affect: anxious Skin no rashes or lesions noted and no wounds MDM MDM MDM Narrative Medical decision making narrative: 49-year-old female presenting with multiple neurologic symptoms have occurred at separate times but the most recent being the visual field cut that started abru ptly couple hours prior to evaluation. She still has it it is right visual field, binocular. For this and the paresthesias she has an NIH of 3 total. Stroke alert was called in triage prior to my evaluation. She was sent to CT and came back and we reevaluated her in conjunction with stroke neurology. Prior to this reevaluation in the room I received a call from radiology, interpreting the plain CT as negative for bleed and the CTA is negative for LVO. I reviewed the images I agree with that. Given that the only acute deficit is a complete hemianopia that seems to be relatively partial, she, the significant other, the stroke neurologist, and I all agree that at this time for this particular issue the risks outweigh the potential benefits of thrombolytics given her relatively mild nondisabling neurologic deficit. Her initial high blood pressure 207/104 on reevaluation is 151/79 unclear if that is etiology of her symptoms or result of her being here in the emergency department with symptoms and feeling very anxious as she was at the time in triage. Blood sugars 106 she has a mild nonspecific leukocytosis, she does not have a drainable collection at this time and her dental pain area, EKG shows sinus rhythm, plans for inpatient workup and further evaluation. History & Record Review Discussion w/independent historian: Patient and Significant other Lab Data Attestation: I reviewed the patient's lab results. Labs: Laboratory Results - last 24 hr 02/13/25 02/13/25 13:53 14:05 WBC 12.0 H RBC 5.05 Hgb 14.8 Hct 44.5 MCV 88.1 MCH 29.3 MCHC 33.3 RDW Std Deviation 43.2 RDW Coeff of Pedrito 13.3 Plt Count 394 MPV 10.3 Immature Gran % (Auto) 0.400 Neut % (Auto) 75.3 H Lymph % (Auto) 16.2 L [place] % (Auto) 6.4 Eos % (Auto) 0.9 Baso % (Auto) 0.8 Absolute Neuts (auto) 9.0 H Absolute Lymphs (auto) 1.94 Nucleated RBC % 0 PT 13.1 INR 1.0 APTT 32.1 Sodium 140 Potassium 3.6 Chloride 99 Carbon Dioxide 25.5 Anion Gap 15 BUN 17 Creatinine 0.68 L Estim Creat Clear Calc 112.09 Est GFR (MDRD) Non-Af 106 BUN/Creatinine Ratio 24.3 H Glucose 112 H Calcium 9.8 Troponin T High Sens < 6 POC Glucose 106 Radiography Diagnostic Testing: Clinical Impression(s) from Imaging Studies Brain CT 02/13/25 13:55 IMPRESSION: No acute intracranial abnormality. Stroke Alert: As above The critical findings in the findings and impression above were relayed directly by me by telephone to Alexander Kulkarni on 02/13/2025 at 2:16 pm with readback verification. Reading Location: [facility] Head/Neck CTA 02/13/25 13:58 IMPRESSION: 1. No large vessel occlusion. 2. No aneurysm or stenosis. Reading Location: [facility] Rhythm Strip Rhythm Strip: Sinus Tach Rate: 105 Ectopy: None EKG Initial EKG: Attestation: I personally reviewed and interpreted this EKG as follows: Interpretation: No Acute Injury Pattern and Sinus Tachycardia Management Discussion w/another healthcare provider: Hospitalist, Mincing Machine Operator (stroke neurology) and Radiologist (At 1416, no bleed and no LVO CTs all negative) Discharge Plan Dx/Rx/DC Orders Clinical Impression: Visual field defect, unspecified, Paresthesias, Pain, dental, Accelerated hypertension Disposition Disposition: Acute Care Hospital [facility] NIHSS NIHSS 1a. Level of Consciousness: 0 - Alert; keenly responsive 1b. LOC Questions: 0 - Answers BOTH questions correctly 1c. LOC Commands: 0 - Performs BOTH tasks correctly 2. Best Gaze: 0 - Normal 3. Visual: 2 - Complete hemianopia 4. Facial Palsy: 0 - Normal symmetrical movements 5a. Left Arm: 0 - No drift; arm holds 90 (or 45) degrees for full 10 seconds 5b. Right Arm: 0 - No drift; arm holds 90 (or 45) degrees for full 10 seconds 6a. Left Le - No drift; leg holds 30-degree position for full 5 seconds 6b. Right Le - No drift; leg holds 30-degree position for full 5 seconds 7. Limb Ataxia: 0 - Absent 8. Sensory: 1 - [id number] sensory loss; 9. Best Language: 0 - No aphasia; normal 10. Dysarthria: 0 - Normal 11. Extinction and Inattention: 0 - No abnormality Total: 3 Stroke Questions Stroke Team Activated: Yes (in triage - seen there) IV Thrombolytic Administered: No
[2025-02-13 14:24] LABS: Prothrombin Time (Protime)PT. 13.1 SECONDS (11.7-14.9)
[2025-02-13 14:25] LABS: Partial Thromboplast Time 32.1 Seconds (24.1-36.2)
[2025-02-13 14:27] LABS: Hematocrit 44.5 % (37-47); Hemoglobin 14.8 g/dL (12.0-15.0); Immature Granulocytes Count 0.050 X10^3/uL (0.0-0.0); Mean Corp Hgb Conc 33.3 g/dL (32-36); Mean Corpuscular Volume 88.1 fL (81-99); Mean Platelet Vol. 10.3 fl (6.2-12.0); NRBC Flagged by Analyzer 0 % (0-5); Platelet Count 394 K/mm3 (150-450); RBC Distribution Width CV 13.3 % (11.6-14.6); RBC Distribution Width SD 43.2 fl (35.1-43.9); Red Blood Count 5.05 M/mm3 (4.2-5.4); White Blood Count 12.0 K/mm3 (4.4-11.0)
[2025-02-13 14:48] LABS: Anion Gap 15 (5-15); BUN 17 mg/dL (4-19); BUN/Creat Ratio 24.3 RATIO (10-20); Calcium,Total 9.8 mg/dL (7.6-11.0); Carbon Dioxide 25.5 mmol/L (21.0-32.0); Chloride 99 mmol/L (98-108); Estimated Creatinine Clearance 112.09 ml/min (50-250); Glucose 112 mg/dL (70-99); Potassium 3.6 mmol/L (3.3-5.1); Troponin T High Sensitivity < 6 ng/L (<=14)
--- NOTE | 2025-02-13 15:14 | ECHOD_ITS ---
Reason For Study Reason For Study: TIA/STROKE Procedure This was a 2D Doppler, Color Flow transthoracic echocardiogram. Exam performed portable in patient room. Left Ventricle Normal LV size. The estimated ejection fraction is 70 %. No evidence for diastolic dysfunction. No regional wall motion abnormalities noted. Right Ventricle Normal RV size. Normal systolic function. Atria The left and right atria are normal. Bubble contrast study negative for right to left interatrial shunt. Mitral Valve There is no mitral valve stenosis. No mitral valve insufficiency. Tricuspid Valve There is no tricuspid stenosis. Unable to estimate RV systolic pressure due to inadequate jet, pulmonary artery pressure probably normal. Aortic Valve There is no aortic stenosis. No aortic valve insufficiency. Pulmonic Valve There is no pulmonic valvular stenosis. No pulmonic valve insufficiency. Great Vessels Normal sized aortic root. Pericardium/Pleural No pericardial effusion. Medication Performed a rapid injection of agitated mix of 9 cc saline and 1cc air to assess for atrial septal defect. MMode/2D Measurements & Calculations LVIDd: 4.2 cm IVSd: 0.98 cm Ao root diam: 2.9 cm LVIDs: 2.8 cm LVPWd: 1.1 cm RVDd: 3.0 cm FS: 32.8 % LAV(MOD-bp): 33.2 ml LVAd ap4: 24.1 cm2 SV(MOD-sp4): 42.2 ml LAV(MOD-bp) Indexed: 16.6 ml/m2 LVLd ap4: 7.6 cm SI(MOD-sp4): 21.1 ml/m2 LAV(MOD-sp2): 31.6 ml EDV(MOD-sp4): 62.7 ml LAV(MOD-sp4): 35.1 ml EDV(sp4-el): 64.6 ml LVAs ap4: 11.8 cm2 LVLs ap4: 5.9 cm ESV(MOD-sp4): 20.4 ml ESV(sp4-el): 20.1 ml EF(MOD-sp4): 67.4 % EF(sp4-el): 68.9 % SV(sp4-el): 44.5 ml LA A4 area: 14.9 cm2 LA dimension(2D): 3.7 cm RA A4 area: 14.2 cm2 TAPSE: 2.0 cm Time Measurements MV dec time: 0.27 sec Doppler Measurements & Calculations MV E max darryl: 73.4 cm/sec Lat Peak E' Darryl: 13.1 cm/sec Med Peak E' Darryl: 11.7 cm/sec MV A max darryl: 71.0 cm/sec E/E' lat: 5.6 E/E' med: 6.3 MV E/A: 1.0 Ao V2 max: 170.0 cm/sec LV V1 max: 146.3 cm/sec PA V2 max: 122.5 cm/sec Ao max P.6 mmHg LV V1 max P.6 mmHg TR max darryl: 229.4 cm/sec TR max P.0 mmHg ECHO/Echo Complete Interpretation Summary The estimated ejection fraction is 70 %. No evidence for diastolic dysfunction. Ordering Physician: Shantell Shafer Referring Physician: DONTA HUBBARD Performed By: Yumi Zaman RDCS
--- NOTE | 2025-02-13 15:14 | MRI_ITS ---
PROCEDURE: MRI SPINE CERVICAL (ROUTINE) 02/13/2025 REASON FOR EXAM: UE/LE PARASTHESIAS TECHNIQUE: Procedure Code: [id number] Modality: MR Procedure: SPINE CERVICAL (ROUTINE) Multiplanar and multisequence images were obtained without IV contrast administration. COMPARISON: Neck CTA earlier same day. FINDINGS: Cervical vertebrae are preserved in height, with anatomic alignment and normal marrow signal. Minimal multilevel spondylotic changes with varying degrees of mild disc desiccation and narrowing, anterior endplate osteophytes, uncovertebral spurring and facet hypertrophy. The spinal cord appears normal in signal and contour. No mass lesion or abnormal collection in the spinal canal. Visualized contents of the posterior fossa appear normal. Unremarkable soft tissues. C2-3: No spinal canal or foraminal narrowing. C3-4: No spinal canal or foraminal narrowing. C4-5: No spinal canal narrowing. Mild bilateral neural foraminal narrowing. C5-6: No spinal canal narrowing. Mild bilateral neural foraminal narrowing. C6-7: Mild dorsal annular disc bulge indenting the ventral thecal sac, without significant spinal canal narrowing. Mild bilateral neural foraminal narrowing, slightly more moderate on the right. C7-T1: No spinal canal or foraminal narrowing. MRI/Spine Cervical (Routine) IMPRESSION: 1. No findings in the cervical spine to explain patient's symptoms. 2. Mild spondylotic changes without any significant high-grade spinal canal or foraminal narrowing. 3. No cord signal abnormality or impingement. Reading Location: [id number]
--- NOTE | 2025-02-13 15:14 | MRI_ITS ---
PROCEDURE: MRI BRAIN W/WO CONTRAST 02/13/2025 REASON FOR EXAM: VISUAL FIELD LOSS TECHNIQUE: Procedure Code: [id number] Modality: MR Procedure: BRAIN W/WO CONTRAST Multiplanar and multisequence images were obtained. CONTRAST: Clariscan VOLUME: 19 mL COMPARISON: CT head/angiography earlier same day. FINDINGS: No regions of abnormal restricted diffusion to indicate recent infarct. Ventricular and sulcal size and configuration are within normal limits. No acute intracranial hemorrhage, extra-axial collection, mass-effect, or other acute abnormality. No intracranial mass lesion, pathologic enhancement, or any significant parenchymal signal alteration. Grossly unremarkable appearance of the orbits, including the optic chiasm and other parasellar structures. Preserved major intracranial vascular flow voids. Clear sinuses and mastoids. MRI/Brain W/WO Contrast IMPRESSION: Unremarkable brain MRI. No explanation for patient's symptoms. Reading Location: [id number]
--- NOTE | 2025-02-13 15:32 | HP.PCM.HOS_ITS ---
HPI - General General Date of Admission: 02/13/25 Date of Service: 02/13/25 Chief Complaint: vision changes HPI Narrative AMAURY FLETCHER, is a 49 F w pmhx HTN, migraines, heart palpitations, and DDD cervical spine who presents to the ER with vision changes today. At about 1100 today she was using her computer she noticed the right half of her vision in both eyes became blurry. She could not quite see the words correctly. She then developed tingling in the right side of her face, right side of the tongue, the right side of her throat, the right side of her neck, right arm, and right leg. She has no associated weakness. She does have a posterior headache at the base of her skull. She came to the hospital and a stroke alert was called. She has also had some dizziness today. She has no chest pain or pressure. She had a CT brain and CTA head and neck which were negative. Neurology was consulted and the decision was made not to give TNK. She also had markedly elevated BP at arrival but this improved on its own. She is currently resting comfortably in bed NAD with ongoing right sided vision loss and right sided numbness, posterior headache, and nausea without vomiting. This is complicating by this week she has been dealing with an infected right lower tooth infection for which she has been taking prednisone and amoxicillin, and for which she was supposed to have a root canal tomorrow. She had been already having right lower jaw numbness associated with that. 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 Insomnia Hypertension Home Medications ?Medication ?Instructions ?Recorded ?Last Taken ?Type loratadine 10 mg tablet (Allergy 10 mg PO DAILY Unknown History Relief (loratadine)) melatonin ER 10 mg-pyridoxine HCl 1 ea PO QHS PRN slee p 11/29/16 Unknown History (B6) 10 mg tab, immed-extend release multivitamin 1 tab PO DAILY 10/06/21 Unkn own History oxycodone-acetaminophen 5 mg-325 1 tab PO Q8H PRN pain 4 days #10 02/12/25 Unknown Rx mg tablet (Percocet) tabs diazepam 2 mg tablet (Valium) 2 mg PO TID PRN dizzines s 12/11/25 Unknown History Allergy/AdvReac Type Severity Reaction Status Date / Time milk (dairy) Allergy Intermediate NEEDS Verified 02/13/25 13:51 FOLLOW-UP wheat Allergy Intermediate UNK Verified 02/13/25 13:51 horse dander Allergy Hives Verified 02/13/25 13:51 Horse/Equine Containing Allergy Hives Verified 02/13/25 13:51 Products aspirin AdvReac NOSEBLEEDS Verified 02/13/25 13:51 Family History Mother High cholesterol Sister Pulmonary embolism IBS (irritable bowel syndrome) Thrombophilia associated with 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 Surgical History S/P colonoscopy S/P D&C (status post dilation and curettage) H/O cervical polypectomy H/O section Social History household members: spouse and children housing: house number of children: 3 current occupational status: employed current occupation: [employer] Smoking Status: Never smoker alcohol intake: never substance use type: does not use seatbelt use: always do you feel safe at home: Yes 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 Constitutional Constitutional: Denies chills, fatigue or fever(s) Eyes Eyes: Reports change in vision and loss of vision; Denies double vision ENT HEENT: Reports headache(s) and other Details: dental pain Cardiovascular Cardiovascular: Reports lightheadedness; Denies chest pain Respiratory/Chest Respiratory/Chest: Denies cough or shortness of breath with exertion Gastrointestinal Gastrointestinal: Reports nausea; Denies vomiting Musculoskeletal Musculoskeletal: Reports neck pain Neurologic Neurologic: Reports dizziness, headache(s) and paresthesias; Denies abnormal speech or confusion Psychiatric Psychiatric: Denies anxiety Hematologic/Lymphatic Hematologic/Lymphatic: Denies anemia Vital Signs Vital Signs Vital Signs: 02/13/25 13:50 02/13/25 13:52 02/13/25 13:58 Temperature 97.8 F Temperature Source Temporal Pulse Rate 105 H 107 H Respiratory Rate 18 18 Blood Pressure 207/104 H 190/108 H Blood Pressure Mean 138 135 Pulse Ox 100 100 Oxygen Delivery Method Room Air Room Air Room Air Oxygen Flow Rate (L/min) 02/13/25 14:34 02/13/25 15:00 02/13/25 15:09 Temperature Temperature Source Pulse Rate 87 80 82 Respiratory Rate 18 12 14 Blood Pressure 151/79 H 144/86 H 144/86 H Blood Pressure Mean 103 105 105 Pulse Ox 100 98 100 Oxygen Delivery Method Non-Rebreather Nasal Cannula Oxygen Flow Rate (L/min) 15 8 02/13/25 15:26 Temperature 97.8 F Temperature Source Pulse Rate 86 Respiratory Rate 18 Blood Pressure 138/90 H Blood Pressure Mean 106 Pulse Ox 100 Oxygen Delivery Method Oxygen Flow Rate (L/min) Weight Weight: 93.848 kg Body Mass Index (BMI) 34.4 Physical Exam Const alert and oriented x3 General Appearance: cooperative HEENT normocephalic and head/scalp atraumatic HEENT Narrative: no palpable abscess right lower jaw Eyes PERRL, EOMs intact bilaterally and conjunctivae normal Neck no lymphadenopathy Resp normal respiratory effort, no use of accessory muscles and clear to auscultation bilaterally Cardio regular rate, regular rhythm and no murmurs GI normal to inspection, nondistended, normoactive bowel sounds, soft to palpation, non-tender and non-distended Extremity normal to inspection, full ROM and no clubbing, cyanosis or edema Neuro oriented x3 Neuro Narrative: visual tapia decreased right side BL eyes Sensorium / Orientation: awake and alert Speech: speech normal Motor Exam: strength 5/5 throughout Psych affect normal Results Lab / Micro Data 02/13/25 14:05 02/13/25 14:05 Labs: Laboratory Results - last 24 hr 02/13/25 13:53: POC Glucose 106 02/13/25 14:05: WBC 12.0 H, RBC 5.05, Hgb 14.8, Hct 44.5, MCV 88.1, MCH 29.3, MCHC 33.3, RDW Std Deviation 43.2, RDW Coeff of Pedrito 13.3, Plt Count 394, MPV 10.3, Immature Gran % (Auto) 0.400, Neut % (Auto) 75.3 H, Lymph % (Auto) 16.2 L, [place] % (Auto) 6.4, Eos % (Auto) 0.9, Baso % (Auto) 0.8, Absolute Neuts (auto) 9.0 H, Absolute Lymphs (auto) 1.94, Nucleated RBC % 0, PT 13.1, INR 1.0, APTT 32.1, Sodium 140, Potassium 3.6, Chloride 99, Carbon Dioxide 25.5, Anion Gap 15, BUN 17, Creatinine 0.68 L, Estim Creat Clear Calc 112.09, Est GFR (MDRD) Non-Af 106, BUN/Creatinine Ratio 24.3 H, Glucose 112 H, Calcium 9.8, Troponin T High Sens < 6 Rhythm Strip Rhythm Strip: Sinus Tach Rate: 105 Ectopy: None Imaging Radiology Impression Brain CT 02/13/25 13:55 IMPRESSION: No acute intracranial abnormality. Stroke Alert: As above The critical findings in the findings and impression above were relayed directly by me by telephone to Alexander Kulkarni on 02/13/2025 at 2:16 pm with readback verification. Reading Location: [facility] Head/Neck CTA 02/13/25 13:58 IMPRESSION: 1. No large vessel occlusion. 2. No aneurysm or stenosis. Reading Location: [facility] Assessment & Plan Assessment/Plan (1) Accelerated hypertension: PLAN: 1. Right sided hemianopia with right sided numbness in the face, tongue, throat neck, arm - onset approx 1100 today. in the ER EKG and troponin negative. CT brain and CTA head and neck negative. Stroke alert called. No TNK given. She will be placed in obs to PCU with NIHSS, MRI brain w and w/o in am with MRI C spine, Echo in AM, Mag, Phos, Lipid profile, A1C. start Asa/plavix/statin. PT/OT/ST 2. Accelerated HTN - markedly elevated at arrival 207/104, has gradually improved without intervention. She has a hx of white coat HTN noting that she does have an rx for HCTZ but only uses it PRN if her BP is running elevated at home. This will be held at this time with prn antihypertensives 3. Chronic migraines - currently with posterior headache and nausea - she will be given compazine and benadryl iv x 1. 4. Right lower dental abscess - this week she has been on amoxicillin and prednisone for this and had been planning a root canal with her dentist tomorrow. complicating #1 as she has had associated right lower jaw numbness along with this infection 5. Leukocytosis possibly 2/2 #4 and recent prednisone use. Recheck in AM. 6. Hx chronic heart palpitations - she states she is prescribed magnesium and potassium for this as an outpatient. Pt will be maintained on tele overnight and electrolytes evaluated 7. Hx DDD C spine DVT ppx: Lovenox Code status: Discussed with patient, Full code. This patient was seen by Joseph Martins PA-C under the supervision of Dr. Shafer. (2) Paresthesias:
--- OUTSIDE RECORDS SUMMARY | 2025-02-13 16:58 | XMS RPT_ITS | CCD ---
Author Organization [facility] Care Team Providers Care Logistics Lead Name Role Phone Dr. Chayo Pereira Primary Care Provider [phone] Dr. Charlie Juarez Attending Provider [phone] Dr. Diandra Zeng Referring Provider Dr. Diandra Zeng Primary Care Provider Dr. Diandra Zeng Referring Provider [phone] Dr. Charlie Juarez Attending Provider Felicia LOGISTICS ASSOCIATE, KATHY Nava Attending Provider [phone] Dr. Diandra Zeng Primary Care Provider Dr. Diandra Zeng Referring Provider Chayo Pereira DO Primary Care Provider ARLEEN FRAZIER Referring Unavailable YULISSAYS, CHAYO A Primary Care Unavailable ARLEEN FRAZIER Attending Unavailable KAJAL, CHAYO A Primary Care Unavailable YULISSAYS, CHAYO A Primary Care Unavailable Dr. Diandra Zeng MD Primary Care Provider Dr. Diandra Zeng MD Referring Provider [phone] Dr. Charlie Juarez DO Attending Provider Dr. Parveen Hernández MD Attending Provider [phone] Diandra Zeng Primary Care Unavailable Parveen Hernández Attending Unavailable Bonezzi, Carlyn Attending Unavailable Bonezzi, Carlyn Referring Unavailable Bonezzi, Carlyn Primary Care Unavailable Bonezzi, Carlyn Attending Unavailable Bonezzi, Carlyn Referring Unavailable Carlyn Taylor Primary Care Unavailable Diandra Zeng Primary Care Unavailable Diandra Zeng Referring Unavailable Friend, Charlie Attending Unavailable Brandon KAPLAN, Dr. Alcocer Primary Care Physician Dr. Carlyn Taylor MD Attending Physician Brandon KAPLAN, Dr. Alcocer Referring Provider Allergies Allergy Classification Reported Allergen(s) Allergy Type Date of Onset Reaction(s) Facility (10 sources) Aspirin; Translations: [ASPIRIN] Drug Allergy 7 Other: See Comments [facility] (5 sources) Wheat preparation Drug Allergy 2 [facility] (1 source) dairy Allergy to substance 2 [facility] Work Phone: (4 sources) cow milk allergenic extract Drug Allergy 3 NEEDS FOLLOW-UP [facility] (1 source) Aspirin Drug Allergy 5 [facility] Repository (1 source) Milk Drug allergy (disorder) 5 [facility] (1 source) Wheat preparation Drug Allergy 5 [facility] Medications Current Medications Medication Drug Class(es) Dates Sig (Normalized) Sig (Original) black cohosh extract 20 mg oral tablet (4 sources) Start: 07-04-2022 take 1 tablet by mouth once daily Start: 07-04-2022 take 1 tablet by mouth once da lizett Black Cohosh 20 mg tablet Active 20 mg PO DAILY July 04, 2022 12:00am Start: 07-04-2022 take 20 mg by mouth once daily Black Cohosh Active 20 MG PO DAILY July 04, 2022 12:00am fluticasone propionate 0.05 mg/actuat metered dose nasal spray (1 source) Corticosteroid Start: 11-29-2016 Fluticasone Propionate Active 1 SPRAY NASAL DAILY November 29, 2016 11:01am Ginkgo Biloba [place] Extract (9 sources) Start: 11-29-2016 take 120 mg by mouth once daily Ginkgo Biloba [place] Extract Active 120 MG PO DAILY November 29, 2016 10:49am Start: 11-29-2016 take 1 tablet by trell th once daily Start: 11-29-2016 take 1 tablet by trell th once daily Ginkgo Biloba [place] Extract 60 MG tablet Active 120 mg PO DAILY November 29, 2016 12:00am Start: 11-29-2016 take 120 mg by mouth once nay y Ginkgo Biloba [place] Extract Active 120 MG PO DAILY November 29, 2016 12:00am ginkgo biloba (G [place] ORAL) Take by mouth once daily. 0 Active Ginseng (5 sources) Start: 11-29-2016 take 100 mg by mouth once daily Ginseng Active 100 MG PO DAILY November 29, 2016 10:49am Start: 11-29-2016 take 1 capsule by mo [facility] once daily Start: 11-29-2016 take 1 capsule by mo [facility] once daily Ginseng 100 MG capsule Active 100 mg PO DAILY November 29, 2016 12:00am Start: 11-29-2016 take 100 mg by mouth once nay y Ginseng Active 100 MG PO DAILY November 29, 2016 12:00am hydroCHLOROthiazide 25 mg oral tablet (1 source) Thiazide Diuretic Start: 11-29-2016 take 25 mg by mouth once daily Hydrochlorothiazide Active 25 MG PO DAILY November 29, 2016 10:49am levoFLOXacin 750 mg oral tablet (1 source) Quinolone Antimicrobial Start: 10-07-2023 End: 10-10-2023 take 1 tablet by mouth once daily levoFLOXacin (LEVAQUIN) 750 mg tablet Indications: Puncture wound of left foot, initial encounter Take 1 tablet by mouth once daily for 3 days. 3 tablet 0 10/07/2023 10/10/2023 Active loratadine 10 mg oral tablet (9 sources) Start: 11-29-2016 take 1 tablet by mouth once daily loratadine (CLAR ITIN ORAL) Take by mouth once daily. 0 Active melatonin 10 mg / vitamin b6 10 mg extended release oral tablet (5 sources) Start: 11-29-2016 take 1 tablet by trell th at bedtime Start: 11-29-2016 Melatonin-Pyri doxine Hcl (B6) Active 1 EACH PO AT BEDTIME November 29, 2016 12:00am multivit with calcium,iron,min (WOMEN'S DAILY MULTIVITAMIN ORAL) (4 sources) multivit with calcium,iron,min (WOMEN'S DAILY MULTIVITAMIN ORAL) Take by mouth once daily. 0 Active Multivitamin preparation (2 sources) Start: 10-06-2021 take 1 tablet by mouth once daily Multivitamin Active 1 TABLET PO DAILY October 06, 2021 12:00am Multivitamin Tablet (2 sources) Start: 10-06-2021 Start: 10-06-2021 Multivitamin T ablet Active 1 {tbl} PO DAILY October 06, 2021 12:00am s-adenosylmethionine 400 mg oral tablet (5 sources) Start: 11-29-2016 take 1 tablet by mouth once daily Vitamin B Complex (4 sources) vitamin B comple x (B COMPLEX 1 ORAL) Take by mouth once daily. 0 Active Completed/Discontinued Medications Medication Drug Class(es) Dates Sig (Normalized) Sig (Original) acetaminophen 325 mg / HYDROcodone bitartrate 5 mg oral tablet (5 sources) Opioid Agonist Start: 12-05-2016 End: 07-04-2022 Hydrocodone-Acetamin ophen ([place] 5-325 Tablet) 1 EACH tablet Discontinued 1 - 2 NMA PO EVERY 6 HOURS NEEDED as needed for Severe Pain (-12/13) 10 0 December 05, 2016 10:59am July 04, 2022 2:02pm cyclobenzaprine hydrochloride 10 mg oral tablet (1 source) Muscle Relaxant Start: 06-14-2018 End: 10-07-2023 take 1 tablet by mouth every eight hours as needed cyclobenzaprine (FLEXERIL) 10 mg tablet Take 1 tablet by mouth three times daily as needed for Muscle Spasm. 15 tablet 0 06/14/2018 10/07/2023 Discontinued (Other) ibuprofen 600 mg oral tablet (5 sources) Nonsteroidal Anti-inflammatory Drug Start: 11-29-2016 End: 07-04-2022 Ibuprofen 600 MG tablet Discontinued 600 mg PO NEEDED as needed for Pain November 29, 2016 12:00am July 04, 2022 2:02pm sucralfate 1000 mg oral tablet (8 sources) Aluminum Complex Start: 10-18-2021 End: 07-04-2022 Sucralfate (Carafate) 1 gram tablet Discontinued 1 g PO before meals 90 0 December 08, 2021 3:10pm July 04, 2022 2:03pm take three times a day, one hour before meals and two hours away from other medications for thirty days. Problems Problem Classification Problem Date Documented Da te Episodic/Chronic Abdominal pain (8 sources) Abdominal pain; Translations: [Unspecified abdominal pain] Episodic Menopausal disorders (6 sources) Menopausal syndrome; Translations: [Menopausal and female climacteric states] 07-04-2022 Chronic Open wounds of extremities (4 sources) Puncture wound of left foot; Translations: [Puncture wound without foreign body, left foot, initial encounter] Onset: 10-13-2023 10-07-2023 Episodic Other nervous system disorders (1 source) Anesthesia of skin; Translations: [Anesthesia of skin] Onset: 10-14-2024 Episodic Results Test Name Value Interpretation Reference Range Facility Re-Evaluation - PT (1)on Re-Evaluation - PT (1) [facility] Physical [facility] [place] [address] / REEVALUATION / MEDICARE RECERTIFICATION PHYSICAL THERAPY MR#: [id number] Acct: [id number] Name: AMAURY MICHAELS Rep #: [id number] : 1975 48 From: Taz Batres PT, ATC Referring Dr.: Dr. Carlyn Taylor MD Status:REG R Insurance: [facility] [id number] SELF PAY INSURANCE Re-Evaluation Intro: Dr. Carlyn Taylor MD, It has been my pleasure to treat AMAURY MICHAELS over the last 5 visits for Neck pain with R UE radiculopathy. Please see the progress note below for an update on the physical therapy plan of care! Subjective Subjective: Pt reports R arm is still going numb almost every morning. Objective Objective/Function: Neck pain is now 1/10 R UE radiculopathy has only temporarily improved Plan Plan Plan: 09/27/24- Cont with c/s Tx at this time. Incorporate scap stab ex's at this time. Hold scheduling until after next DrElia visit Balance/Gait/Function al tests Balance/Special Test Scores Oswestry Neck Score: 20 Goals Goals Goal 1:: Decrease neck pain x 50% to aid with sleep Goal Time Frame: 4-6 Weeks Goal Progress: Goal Met Goal 2:: Decrease the Frequency and intensity of R UE radiculopathy to aid with IADL's Goal Time Frame: 4-6 Weeks Goal Progress: Not Progressing Goal 3:: I with HEP Goal Time Frame: 4-6 Weeks Goal Progress: Goal Met Anticipated Interventions Anticipated Interventions Patient/Client Instruction: Educate patient on: Condition and Plan of Care For the Purpose of:: To improve self management Therapeutic Exercise to Include: Strength training, Endurance training, Balance training, Active ROM and Ayse Exercises For the Purpose of:: To decrease pain, To increase ROM and To improve muscle performance and motor function Intermittent cervical traction: Yes For the Purpose of:: To decrease pain Re-Evaluation Ending Re-evaluation ending: Please do not hesitate to contact me at [phone] by phone or if you have questions or concerns regarding this new plan of care! Sincerely, Taz Batres PT, ATC 09/27/24 1558 CC: Dr. Carlyn Taylor MD [facility] Signed For Medicare only, by signing this I certify the plan of care. Physicians Signature Date Normal [facility] Inital Evaluation (1) - PTon 09-11-2024 Inital Evaluation (1) - PT [facility] Physical Therapy Health[address] [place] [address] / REHABILITATION SERVICES INITIAL EVALUATION MR#: [id number] Acct: [id number] Name: AMAURY MICHAELS Rep #: [id number] : 1975 48 From: Taz Batres PT, ATC Referring Dr.: Dr. Carlyn Taylor MD Status: REG R Insurance: [facility] [id number] SELF PAY INSURANCE Patient's Visit Information Visit Information Visit Information: AMAURY MICHAELS is a 48 year old F referred to Physical Therapy by Dr. Carlyn Taylor MD with a diagnosis of Neck pain with R UE radiculopathy. Date of Evaluation: 09/10/24 Physical Therapist: Taz Batres, PT, ATC Visit Plan Frequency: 2x /Week Duration: 2-4 Weeks Plan: Trialed Ctx with 16#/8#, 30 sec/10 sec x 10 min. Assess benefit of Tx. Recheck c/s retraction. Consider using DTR next visit. Subjective Subjective: Pt reports she has had neck pain and intermittent R UE numbness for 3-4 years. Pt notes the pain was not as bad at that time, but has progressively worsened over this span. Pt admits she has put this off for some time secondary to having younger kids and and busy life style. Pt reports she has the most pain with watching TV, sleeping, and while driving. Pt denies any trauma or injury to her neck and R UE at this time. Pt also notes she gets CHUA's at the base of her head. Pt reports her headaches will radiate up the aback of her head. Pt notes she has had an x-ray which reveals DDD. Pt abylp2mp she does have sleep difficulty secondary to pain. Pt reports No PMHx of neck pain or R UE pain. Pt reports she doesnt really have pain as long as she keeps moving. 1/10 pain currently with prednisone, 4/10 at worst. Pain Neck pain: Pain Intensity (Out of 10): 1 Pain Intensity Range: 4 Objective Objective: Neuro: R UE c6 dermtome is hyposensitive to light touch. All other B UE sensation is WNL to light touch. Palpation: Sig muscle guarding throughout lower cervical spine. No obvious deformity noted at this time. MMT: B UE's are grossly rated at 5/5 throughout ROM: Pt is moderately limited with B SB, retraction, and extension ROM. All other motions are WNL Repeated movements: RPIS 10x3 NE, RRIS 10x3 provoked pain, referred to scap region. Manual traction decreased pain. Balance/Special Test Scores Oswestry Neck Score: 20 Goals Goal 1:: Decrease neck pain x 50% to aid with sleep Goal Time Frame: 4-6 Weeks Goal 2:: Decrease the Frequency and intensity of R UE radiculopathy to aid with IADL's Goal Time Frame: 4-6 Weeks Goal 3:: I with HEP Goal Time Frame: 4-6 Weeks Rehabilitation Potential Physical Therapy Diagnosis: Pt has neck pain and R UE radiculopathy secondary to c/s disc derangement Rehabilitation Potential: Good Anticipated Interventions Patient/Client Instruction: Educate patient on: Condition and Plan of Care For the Purpose of:: To improve self management Therapeutic Exercise to Include: Strength training, Endurance training, Balance training, Active ROM and Ayse Exercises For the Purpose of:: To decrease pain, To increase ROM and To improve muscle performance and motor function Intermittent cervical traction: Yes For the Purpose of:: To decrease pain Text: Thank you for the opportunity to evaluate your patient. For Medicare and Medicare HMO plans, please review the plan of care and approve it. It will need to be FAXED BACK to us at [phone] for Medicare purposes. For Medicare only, by signing this I certify the plan of care. Please let me know if there are questions or concerns regarding this plan of care. Physician Signature: Date : 09/11/24 0850 CC: Dr. Carlyn Taylor MD [facility] Signed Normal [facility] Cerv Spine 2 or 3 Viewson Cerv Spine 2 or 3 Views [facility] Imaging Services [address] [place] [id number] Cerv Spine 2 or 3 Views MR#: [id number] Acct: [id number] Name: AMAURY MICHAELS Rep #: [id number] : 1975 F 48 From: Maulik verduzco MD PCP: Dr. Diandra Zeng MD Status: DEP AMB Study: Cerv Spine 2 or 3 Views Date of Exam: 08/22/24 Exam# [id number] Ordering Dr: Carlyn Taylor MD PROCEDURE: CERV SPINE 2 OR 3 VIEWS 08/22/2024 REASON FOR EXAM: NECK PAIN, CHRONIC, RIGHT SHOULDER NUMBNESS TECHNIQUE: CERV SPINE 2 OR 3 VIEWS COMPARISON: None. FINDINGS: Straightening of the cervical lordosis, probably muscular spasm and pain. There are diffuse spondylotic changes. Findings are demonstrated to by diffuse disc space narrowing, osteophyte formation and degenerative endplate sclerosis. There is diffuse facet joint arthropathy with secondary bilateral neural foramina narrowing. No fracture or dislocation is seen. No aggressive lytic or blastic bony lesion is noted. RAD/Cerv Spine 2 or 3 Views IMPRESSION: Spondylosis, more prominent at C6-C7. Reading [facility] [address] CC: Dr. Carlyn Taylor MD; Dr. Diandra Zeng MD Asset Protection Representative: Signed Normal [facility] Gastroenterology Visit Repor ton 05-31-2024 Gastroenterology Visit Report [facility] [address] [place] [address] OFFICE VISIT Date of Service: 05/31/24 MR#: [id number] Acct: [id number] Name: AMAURY MICHAELS Rep #: [id number] : 1975 Provider: Charlie Juarez DO Age/Sex: 48/F Location: [facility] Status: Signed Intake Vital Signs 07/10/23 15:15 Height 5 ft 5 in Intake Visit Reasons: fOLLOW UP Chief Complaint: Annual Allergies milk (dairy) Allergy (Intermediate, Verified 05/31/24 10:35) NEEDS FOLLOW-UP wheat Allergy (Intermediate, Verified 05/31/24 10:35) UNK aspirin Adverse Reaction (Verified 05/31/24 10:35) NOSEBLEEDS PFSH Medical History Wears contact lenses Wears glasses Rash Abdominal pain Chronic headaches 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 Insomnia Hypertension Surgical History S/P colonoscopy S/P D C (status post dilation and curettage) H/O cervical polypectomy H/O section Family History Mother High cholesterol Sister Pulmonary embolism IBS (irritable bowel syndrome) 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 Amaury established with this clinic 08.06.21 with referral from her PCP for evaluation of left abdominal pain that radiates to her back with onset 2018 with initial pain being in her left back. COVID in with subsequent tooth infection (dental work delayed because of COVID infection) and root canal with two antibiotics used; but then had increased LLQ pain. Has attempted FODMAP diet which was very helpful with pain. Wheat and milk cause her to have diarrhea. Notes if she does not have enough fiber in her diet she has slower bowels, she manages her stools with diet. Allergy to wheat (phlegm, redness, brain fog) and dairy. Has begun avoiding apples, cabbage, peaches, peanutbutter. PMH anxiety; HTN; insomnia; MTHFR gene mutation (Dr. Fisher); uterine fibroids. FH includes sister with bowel issues and dairy intolerance. Her daughter has similar issues. CT abd/pel 06.15.18 finding moderate stool throughout colon; degenerative disc disease in the lower back. Biochemical workup CBC, ESR, CMP, LDH, CRP, celiac, RASH, GAME, BONNIE, cortisol, T3, T4, TSH, JAVAN comp, ANCA without pertinent abnormal results. EGD and colonoscopy performed 10.07.21. EGD found irregular Zline 37cm from incisors; erythematous mucosa of antrum, gastritis. H.Pylori negative. Colonoscopy found congested mucosa of sigmoid colon, splenic flexure and hepatic flexure. No pathologic changes. OV start sucralfate Plan LV 12.08.21: Abdominal pain ??? likely SIBO, continue sucralfate. Start strict diet and alkaline water OF 1.20.23- Pt states she has been doing well since the last visit. Has been following the diet we gave her and has decreased the amount of acid in her diet. She has also been drinking the alkaline water and incorporating more fruits and vegetables. She feels this has been very helpful for her abdominal pain. Only experiencing episodes once a week or so and its usually associated with something she eats. OV 3.28.25- Pt reports since her last visit she has a new PCP and is post menopausal. Started hormone replacement therapy and started to have digestive issues. States she started taking Benadryl and has followed an antihistamine diet which has helped tremendously. Also states her father was recently diagnosed with esophageal cancer and is currently undergoing chemotherapy. Has questions about why the Benadryl helped her sx and if she needs work up for esophageal cancer. ROS Const Constitutional: Positive for weight change; No fatigue or fever(s) ENT ENT: No difficulty swallowing Gastro GI: No abdominal pain, belching, bloating, change in bowel habits, change in stool character, coffee ground emesis, constipation, cramping, diarrhea, heartburn, difficulty swallowing, feeling full early, excessive flatus, incontinent of stools, Vomiting blood/hematemesis, Blood in stool, loose stools, Black,tarry stools, nausea/dyspepsia, pain with swallowing, vomiting or other Musc Musculoskeletal: Positive for joint pain and back pain (more content not included)... Normal [facility] 10-18-2023 LENYN Telephone (PODIMM) AMAURY MICHAELS ([id number]) 1975 F Date Time Provider Department 10/18/23 ARLEEN FRAZIER During your visit today, we recorded the following information about you: Arleen Frazier 10/18/2023 12:48 PM Signed Please call patient to inform her that xrays do not show any acute fracture or apparent foreign body If she is doing well, continue with activity as tolerated JUDITH Lazar Amelia, LPN 10/18/2023 4:38 PM Signed Patient notified of results and provider's instructions. Patient verbalizes understanding. Guadalupe Castañeda LPN Allergies As of Date: 10/18/2023 Noted Allergy Reaction ASA (ASPIRIN) 12/01/2020 14 - Other: See Comments Comments: Nose bleeds Date Reviewed: 10/13/2023 Reviewed by: Guadalupe Castañeda LPN - Fully Assessed Reason for Visit: Results [95] Prescriptions as of 10/18/2023 - ginkgo biloba (GINKOBA ORAL) Take by mouth once daily. - multivit with calcium,iron,min (WOMEN'S DAILY MULTIVITAMIN ORAL) Take by mouth once daily. - loratadine (CLARITIN ORAL) Take by mouth once daily. - vitamin B complex (B COMPLEX 1 ORAL) Take by mouth once daily. Problem List As Of Date: 10/18/2023 (None) Encounter Status:Closed by GUADALUPE CASTAÑEDA on 10/18/23 [facility] CNOVon 10-13-2023 CNOV Office Visit (PODIWS ) AMAURY MICHAELS ([id number]) 1975 F Date Time Provider Department 10/13/23 11:30 AM ARLEEN FRAZIER PODIWS During your visit today, we recorded the following information about you: Guadalupe Castañeda LPN 10/13/2023 12:45 PM Signed AMB ROOMING INTAKE FLOWSHEET DATA Pain Pain Level: 1 Pain Location: Foot-Left Description: Sore Duration Amount of Time: 1 Duration Units: Weeks Frequency: Intermittent Intervention/Comfort measure: Relaxation, Reposition, Medication Patient presents with: Left Foot - New, Puncture Wound, Pain, Swelling VANNESA Hutchinson Matthew 10/13/2023 12:45 PM Signed Initial Podiatric Office Visit: Chief Complaint: This 47 year old female who presents with chief complaint:puncture wound of left foot HPI Patient presents to clinic for evaluation of left foot On October 07, 2023, she stepped on a mini nail. She was wearing sandals without socks Patient believes the nail penetrated the skin She went to urgent care Was placed on levaquin x 3 days. Was noticing pus and swelling but today, the foot is looking better. Almost cancelled apppointment No major pain currently. 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 multivit with calcium,iron,min (WOMEN'S DAILY MULTIVITAMIN ORAL) Take by mouth once daily. loratadine (CLARITIN ORAL) Take by mouth once daily. vitamin B complex (B COMPLEX 1 ORAL) Take by mouth once daily. No current facility-administered medications for this visit. ALLERGIES Allergen Reactions Asa [Aspirin] Other: See Comments Nose bleeds PAST SURGICAL HISTORY No date: DANDC, DIAG AND/OR THERAPEUTIC Comment: DANDC with polyp excision [facility] 2010 and [facility] 2018 FAMILY HISTORY Problem Relation Age of Onset Hypertension Mother Skin Cancer Mother Prostate Cancer Father Hypertension Sister Blood Clots Sister Diabetes Maternal Grandmother Diabetes Maternal Grandfather Stroke Maternal Grandfather Heart Attack Maternal Grandfather Stroke Paternal Grandfather Diabetes Other Social History Tobacco Use Smoking status: Former Smokeless tobacco: Never Substance Use Topics Alcohol use: Never Drug use: Never REVIEW OF SYSTEMS GENERAL: Negative for Malaise, significant weight loss, fever RESPIRATORY: Negative for cough, wheezing and shortness of breath CARDIOVASCULAR: Negative for chest pain, leg swelling and palpitations GI: Negative for abdominal discomfort, blood in stools or black stools and change in bowel habits : Negative for dysuria, frequency and incontinence MUSCULOSKELETAL: Negative for joint pain or swelling, back pain, and muscle pain. SKIN: Negative for lesions, rash, and itching. HEMATOLOGY/LYMPHOLOGY Negative for prolonged bleeding, bruising easily, and swollen nodes. ENDOCRINE: Negative for cold or heat intolerance, polyuria, polydipsia and goiter. NEURO: negative Physical Exam: Constitutional: Pt is a well developed 47 year old female who is alert, oriented and cooperative Eyes: Following during examination. No redness or drainage. Respiratory: RR normal and nonlabored. Even breathing. No evidence of distress or shortness of breath. Psychology: Patient is engaged during conversation. Normal affect and mood. Does not appear depressed or anxious during encounter. Vascular: Dorsalis pedis and posterior tibial pulses palpable as b/l Capillary Fill time < 5 seconds to digits 1-5 b/l Skin temperature warm to warm proximal to distal b/l Hair growth present to digits Neurological: intact light touch/epicritic sensation b/l intact protective sensation no significant neurological deficits Dermatological: Nails 1-5 b/l appear normal. Webspaces clean and dry 1-4 b/l. Skin appears well hydrated and supple. good color, texture, turgor. No open lesions present. No callosities present. Healed puncture wound of left foot. No signs of infection Musculoskeletal/Ortho paedic: Patient has no pain to palpation of b/l feet Radiographs: ordered ASSESSMENT: (S91.332A) Puncture wound of left foot, initial encounter (primary encounter diagnosis) PLAN: 1. History and physical examination performed. 2. Discussed puncture wound of left foot. Has completed 3 days of levquin. Offered refill to complete for one week. She chose to monitor 3 (more content not included)... Normal [facility] XR FOOT 3V AP/LAT/OBL LTon 0 10-13-2023 XR FOOT 3V AP/LAT/OBL LT * * *Final Report* * * DATE OF EXAM: Oct 13 2023 12:01PM WRX [id number] - XR FOOT 3V AP/LAT/OBL LT / PROCEDURE REASON: Puncture wound of left foot, initial encounter * * * * Physician Interpretation * * * * EXAMINATION / TECHNIQUE: XR FOOT 3V AP/LAT/OBL LT ACCESSION NUMBER: [id number] HISTORY: PT STATES SHE STEPPED ON NAIL WITH LEFT FOOT LAST SAT. BANDAGE OVER PLANTAR PORTION OF GREAT TOE Puncture wound of left foot, initial encounter . COMPARISON: None 3 views of the left foot and single AP view of the right foot were performed. FINDINGS: No acute fracture or dislocation. Degenerative changes on the lateral view noted at the talonavicular joint with dorsal navicular spurring present. Small plantar calcaneal enthesophyte is present. No other significant degenerative or erosive changes are present. Visualized soft tissues are unremarkable. IMPRESSION: Degenerative changes on the lateral view noted at the talonavicular joint with dorsal navicular spurring present. Small plantar calcaneal enthesophyte is present. Asset Protection Representative[facility] Transcribe Date/Time: Oct 17 2023 7:46P Dictated by : JUNIE RUBIO MD This examination was interpreted and the report reviewed and electronically signed by: JUNIE RUBIO MD on Oct 17 2023 7:48PM EST [id number] Normal [facility] CNOVon 10-07-2023 [facility] AMAURY MICHAELS ([id number]) 1975 F Date Time Provider Department 10/07/23 12:45 PM JORGE FERNANDEZ [facility] During your visit today, we recorded the following information about you: Temperature Pulse Respiration Blood pressure 97.7 degrees 70/minute 20/minute 150/93 Weight Last Period 89 kg 05/24/18 Jorge Fernandez MD 10/07/2023 1:48 PM Signed Patient presents with: Trauma: Stepped on 2 inch Mini nail, stepped about an inch onto it, states she has pain in her Left foot HPI: Patient punctured her left foot with a nail while walking outside in slides earlier today. She had bleeding from the site of puncture site in the sole of her left foot. She has little pain at the site. The nail looked intact when removed. Last tetanus booster was about 7 or 8 years ago. Denies any significant health problems. She does have past history of DVT. 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 multivit with calcium,iron,min (WOMEN'S DAILY MULTIVITAMIN ORAL) Take by mouth once daily. loratadine (CLARITIN ORAL) Take by mouth once daily. vitamin B complex (B COMPLEX 1 ORAL) Take by mouth once daily. ALLERGIES: ALLERGIES Allergen Reactions Asa [Aspirin] Other: See Comments Nose bleeds VITALS: BP 150/93 Pulse 70 Temp 36.5 ?C (97.7 ?F) Resp 20 Wt 89 kg (196 lb 3.4 oz) LMP 05/24/2018 (Exact Date) SpO2 100% BMI 32.69 kg/m? PHYSICAL EXAM: GEN: pleasant, alert, no acute distress FOOT: left. Puncture sole of foot at the first metatarsal head. No pain with toe range of motion. Minimal discomfort with palpation of the puncture. ASSESSMENT/PLAN: 1. Puncture wound of left foot, initial encounter - ICD9: 892.0, ICD10: S91.332A - TDAP VACCINE, AGE 7+ YR (ADACEL, BOOSTRIX) - LEVOFLOXACIN 750 MG TABLET prophylaxis Follow up with signs of infection such as increasing redness, pain, swelling, purulent drainage, or fever/malaise. Jorge Fernandez MD Allergies As of Date: 10/07/2023 Noted Allergy Reaction ASA (ASPIRIN) 12/01/2020 14 - Other: See Comments Comments: Nose bleeds Date Reviewed: 10/07/2023 Reviewed by: Drea Naqvi LPN - Fully Assessed Reason for Visit: Trauma [112] Cmt: Stepped on 2 inch Mini nail, stepped about an inch onto it, states she has pain in her Left foot Primary Visit Diagnosis:Puncture wound of left foot, initial encounter [S91.332A] Order(s):TDAP VACCINE, AGE 7+ YR (ADACEL, BOOSTRIX) [[id number]] Order #: [id number] levoFLOXacin (LEVAQUIN) 750 mg tabletTake 1 tablet by mouth once daily for 3 days.Disp: 3 tabletRfl: 0 Prescriptions as of 10/07/2023 - levoFLOXacin (LEVAQUIN) 750 mg tablet Take 1 tablet by mouth once daily for 3 days. - ginkgo biloba (GINKOBA ORAL) Take by mouth once daily. - multivit with calcium,iron,min (WOMEN'S DAILY MULTIVITAMIN ORAL) Take by mouth once daily. - loratadine (CLARITIN ORAL) Take by mouth once daily. - vitamin B complex (B COMPLEX 1 ORAL) Take by mouth once daily. Problem List As Of Date: 10/07/2023 (None) Prescriptions ordered this encounter Disp Refills Start End LEVOFLOXACIN 750 MG TABLET 3 ta* 0 10/07/2023 10/10/2023 Route: ORAL Sig: Take 1 tablet by mouth once daily for 3 days. Medications Discontinued During This Encounter Prescriptions - cyclobenzaprine (FLEXERIL) 10 mg tablet (Discontinued) Reported on 12/01/2020 Level of Service: OFFICE/OUTPATIENT [facility] 30 MINUTES [67626] Encounter Status:Closed by JORGE FERNANDEZ on 10/07/23 Normal [facility] Cervical or vagninal specime n microscopic examination by cytology stain (reported asOrdered By: Brandy Duarte on 07-04-2022 Cytology report Cyto stain Doc (Cvx/Vag) Comment . [facility] Comment on above: The Pap smear is a s creening test designed to aid in thedetection of premalignant and malignant conditions of theuterine cervix. It is not a diagnostic procedure andshould not be used as the sole means of detecting cervicalcancer. Both false-positive and false-negative reports dooccur. Detection in cervical specim en of any of human papilloma virus (HPV) 16, 18, 31, 33,Ordered By: Brandy Duarte on 07-04-2022 HPV 16+18+31+33+35+39+45+51 +52+56+58+59+66+68 DNA Probe+sig amp Ql (Cvx) Negative Negative [facility] Comment on above: This nucleic acid am plification test detects fourteen high-risk HPV types (16,18,31,33,35,39,45,51,52,56,58,59,66,68)without differentiation. Laboratory - CytologyOrdered By: Brandy Duarte on 07-04-2022 Alumnae Secretary Cyto stain Nom (Cvx/Vag) [ID] Comment . [facility] Comment on above: Joanne West, [employer] hnologist (ASCP) Laboratory - Miscellaneous t estsOrdered By: Brandy Duarte on 07-04-2022 Service comment (Unsp spec) [Interp] Comment . [facility] Comment on above: This liquid based Th inPrep(R) pap test was screened withthe use of an image guided system. Service comment (Unsp spec) [Interp] . . [facility] Liquid-based cerv Pap + CT/G C by ILYA w reflex to high-risk HPV for ASCUSOrdered By: Brandy Duarte on 07-04-2022 Cytology report Cyto stain.thin prep Doc (Cvx/Vag) Comment . [facility] Comment on above: Criteria not met, HP V Genotype not performed.Performed at: - [facility] [id number] Director: Yolanda Washington MD, Phone: [phone] at: = - [facility] [id number] Director: Yolanda Washington MD, Phone: [phone] No Panel InformationOrdered By: Brandy Duarte on 07-04-2022 Pathology report final diagnosis Narrative Comment . [facility] Comment on above: NEGATIVE FOR INTRAEP ITHELIAL LESION OR MALIGNANCY. Absolute lymphocyte counton 08-06-2021 Lymphocytes Auto (Unsp spec) [#/Vol] 1.57 10*3/uL 0.83-4.51 [facility] Work Phone: Basophil percentageon 2021 Basophils/100 WBC (Bld) 1.0 % 0-1 [facility] Work Phone: Bilirubin [Mass/Vol] 0.20 mg/dL 0.20-1.00 [facility] Work Phone: Comment on above: For patients on eltr ombopag therapy, use of Dimension Christine TBIL is not recommended. Chloride [Moles/Vol] 105 mmol/L 98-107 [facility] Work Phone: Eosinophils/100 WBC (Bld) 3.0 % 0-5 [facility] Work Phone: Glucose [Mass/Vol] 93 mg/dL 74-106 [facility] Work Phone: Neutrophils (Bld) [#/Vol] 3.8 10*3/uL 2.0-7.7 [facility] Work Phone: Neutrophils/100 WBC (Bld) 60.3 % 47-70 [facility] Work Phone: Potassium [Moles/Vol] 3.8 mmol/L 3.5-5.1 [facility] Work [facility]: Protein [Mass/Vol] 7.5 g/dL 6.4-8.2 [facility]: Sodium [Moles/Vol] 138 mmol/L 136-145 [facility] Work [facility]: [phone] WBC (Bld) [#/Vol] 6.3 10*3/uL 4.4-11.0 [facility] Work Phone: [phone] Blood erythrocytes count (nu mber/volume)on 08-06-2021 RBC (Bld) [#/Vol] 4.47 10*6/uL 4.2-5.4 [facility] Work Phone: [phone] Blood hemoglobin measurement (mass/volume)on 08-06-2021 Hemoglobin (Bld) [Mass/Vol] 13.4 g/dL 12.0-15.0 [facility] Work Phone: Blood lymphocytes/100 leukoc yteson 08-06-2021 Lymphocytes/100 WBC (Bld) 24.9 % 19-41 [facility] Work Phone: Blood monocytes/100 leukocyt eson 08-06-2021 Monocytes/100 WBC (Bld) 10.6 % 0-10 [facility] Work Phone: Blood platelet mean volumeon 08-06-2021 Platelet mean volume (Bld) [Entitic vol] 10.2 fL 6.2-12.0 [facility] Work Phone: Determination of erythrocyte mean corpuscular volume (MCV)on 08-06-2021 MCV (RBC) [Entitic vol] 89.7 fL 81-99 [facility] Work Phone: Erythrocyte sedimentation ra kiarra 08-06-2021 ESR (Bld) [Velocity] 7 mm/h 0-[address] [facility] [facility] Work Phone: Hematocrit Auto (Bld) [Volum e fraction]on 08-06-2021 Hematocrit (Bld) [Volume fraction] 40.1 % 37-47 [facility] Work Phone: [phone] Laboratory - Chemistry and C hemistry - challengeon 08-06-2021 ALP [Catalytic activity/Vol] 86 U/L 45-117 [facility] Work Phone: ALT [Catalytic activity/Vol] 66 U/L 13-56 [facility] Work Phone: CO2 [Moles/Vol] 30.0 mmol/L 21.0-32.0 [facility] Work Phone: Free T4 [Mass/Vol] 1.08 ng/dL 0.76-1.46 [facility] Work Phone: Globulin (S) [Mass/Vol] 3.7 g/dL 2.2-4.2 [facility] Work Phone: Urea nitrogen/Creatinine [Mass ratio] 30.4 mg/mg 10-20 [facility] Work Phone: Laboratory - Hematology and Cell countson 08-06-2021 Erythrocyte distribution width (RBC) [Entitic vol] 42.7 fL 35.1-43.9 [facility] Work Phone: Erythrocyte distribution width (RBC) [Ratio] 12.9 % 11.6-14.6 [facility] Work Phone: Immature granulocytes/100 WBC (Bld) 0.200 % 0.0-0.9 [facility] Work Phone: Comment on above: IG% - Immature Granu locytes (promyelocytes, myelocytes and metamyelocytes) > 1% indicates that a LEFT SHIFT is Present. MCH (RBC) [Entitic mass] 30.0 pg 27.0-32.0 [facility] Work Phone: Nucleated RBC/100 WBC (Bld) [Ratio] 0 % 0-5 [facility] Work Phone: MCHC Auto (RBC) [Mass/Vol]on 08-06-2021 MCHC (RBC) [Mass/Vol] 33.4 g/dL 32-36 [facility] Work Phone: No Panel Informationon 08-06 Endomysial IgA Antibody Negative Negative [facility] Work Phone: Estimated GFR (MDRD) Amer 111 mL/min >60 [facility] Work Phone: Comment on above: GFR Calc Estimated GFR (MDRD) Non-Af Amer 92 mL/min >60 [facility] Work Phone: Comment on above: Non- GFR Calc Free Triiodothyronine (T3) pg/dL 2.9 pg/mL 2.18-3.98 [facility] Work Phone: Thyroid Stimulating Hormone (TSH) 0.81 uIU/mL 0.358-3.74 [facility] Work Phone: Platelets bldon 08-06-2021 Platelets (Bld) [#/Vol] 308 10*3/uL 150-450 [facility] Work Phone: Serum IgA measurement (units /volume)on 08-06-2021 IgA Qn (S) 241 mg/dL [facility] Work Phone: Comment on above: Performed at: [address] [id number] Director: Tavo Khan PhD, Phone: [phone] Serum or plasma C reactive p rotein measurement (mass/volume)on 08-06-2021 CRP [Mass/Vol] mg/L 0.0-3.0 [facility] Work Phone: Comment on above: C-Reactive Protein ( CRP) provides useful information for thediagnosis, therapy and monitoring of inflammatory processesand associated diseases. For the evaluation of Relative Riskfor Cardiovascular Disease, a High Sensitivity CRP (HSCRP)should be ordered. Serum or plasma albumin mariajose urement (mass/volume)on 08-06-2021 Albumin [Mass/Vol] 3.8 g/dL 3.2-5.0 [facility] Work Phone: Serum or plasma albumin/glob ulin mass ratioon 08-06-2021 Albumin/Globulin [Mass ratio] 1.0 {ratio} 0.9-2.4 [facility] Work Phone: Serum or plasma calcium mariajose urement (mass/volume)on 08-06-2021 Calcium [Mass/Vol] 9.0 mg/dL 8.5-10.1 [facility] Work Phone: Serum or plasma cortisol hanane surement (mass/volume)on 08-06-2021 Cortisol [Mass/Vol] 6.40 ug/dL 3.44-22.45 [facility] Work Phone: Comment on above: Adult (AM) 5.27 - 22 .45 ug/dL Adult (PM) 3.44 - 16.76 ug/dLPlease note revised CORTISOL reference range effective 2019. Serum or plasma creatinine m easurement (mass/volume)on 08-06-2021 Creatinine [Mass/Vol] 0.72 mg/dL 0.55-1.02 [facility] Work Phone: Comment on above: The validity of the calculated GFR & GFRAA in patients over 70 years has not been determined. Clinical correlation is essential. Serum or plasma urea nitroge n measurement (mass/volume)on 08-06-2021 Urea nitrogen [Mass/Vol] 22 mg/dL 7-18 [facility] Work Phone: Serum tissue transglutaminas e IgA antibody assay (units/volume)on 08-06-2021 tTG IgA Qn (S) <2 U/mL [facility] Work Phone: Comment on above: Negative 0 - 3 Weak Positive 4 - 10 Positive >10 Tissue Transglutaminase (tTG) has been identified as the endomysial antigen. Studies have demonstr- ated that endomysial IgA antibodies have over 99% specificity for gluten sensitive enteropathy. Thin prep Papanicolaou smear with manual screeningon 08-06-2021 Thin prep Papanicolaou smear with manual screening 36 U/L 15-37 [facility] Work Phone: Thin prep Papanicolaou smear with manual screening 3 5-15 [facility] Work Phone: Thin prep Papanicolaou smear with manual screening 201 U/L 84-246 [facility] Work Phone: Vital Signs Date Time Vital Sign Value Performing Clinician [place] jerod 08-22-2024 14:53-0400 Body height 165.[address] Diandra Zeng MD Work Phone: [facility] 10-07-2023 12:57-0400 Body mass index (BMI) [Ratio] 32.69 kg/m2 Jorge Fernandez MD Work Phone: [facility] 10-07-2023 12:57-0400 Body temperature 97.7 [degF] Jorge Fernandez MD Work Phone: [facility] 10-07-2023 12:57-0400 Body weight 89 kg Jorge Fernandez MD Work Phone: [facility] 10-07-2023 12:57-0400 Diastolic blood pressure 93 mm[Hg] Jorge Fernandez MD Work Phone: [facility] 10-07-2023 12:57-0400 Heart rate 70 /min Jorge Fernandez MD Work Phone: [facility] 10-07-2023 12:57-0400 Respiratory rate 20 /min Jorge Fernandez MD Work Phone: [facility] 10-07-2023 12:57-0400 SaO2% (BldA) [Mass fraction] 100 % Jorge Fernandez MD Work Phone: [facility] 10-07-2023 12:57-0400 Systolic blood pressure 150 mm[Hg] Jorge Fernandez MD Work Phone: [facility] 07-04-2022 14:10-0400 Body height 165.[address] Diandra Zeng Work Phone: [facility] 07-04-2022 13:58-0400 Body mass index (BMI) [Ratio] 30.9 kg/m2 Dr. Diandra Zeng Work Phone: [facility] 07-04-2022 13:58-0400 Body weight 84.[address] Diandra Zeng Work Phone: [facility] 07-04-2022 13:58-0400 Diastolic blood pressure 84 mm[Hg] Dr. Diandra Zeng Work Phone: [facility] 07-04-2022 13:58-0400 Systolic blood pressure 128 mm[Hg] Dr. Diandra Zeng Work Phone: [facility] Encounters Encounter Date Encounter Type Care Provider Facility [facility]: [facility] Start: 09-27-2024 End: 09-[facility] Start: 09-27-2024 End: 09-27-[address] Carlyn Taylor MD -Physical Therapy Work Phone: Start: 08-22-2024 End: 08-22-[address] Parveen Hernández MD -[facility] Start: 08-22-2024 End: 08-22-[address] Diandra Zeng MD Work Phone: [facility] Work Phone: Start: 05-31-2024 End: 05-31-2024 Patient encounter procedure Charlie Juarez [facility] Work Phone: Start: 05-31-2024 End: 05-31-2024 ambulatory Diandra Zeng Facility:[facility] Start: 10-18-2023 Telephone encounter Arleen Nye Work Phone: Podiatry Comment on above: Results Start: 10-13-2023 End: 10-13-2023 Subsequent hospital visit by physician Xr [facility] Ramo Work Phone: Radiology Comment on above: Puncture wound of le ft foot, initial encounter [S91.332A] Start: 10-13-2023 End: 10-13-2023 ambulatory ARLEEN FRAZIER Facility:[facility] Start: 10-13-2023 End: 10-13-2023 Patient encounter procedure Arleen Frazier Work Phone: Podiatry Comment on above: Puncture wound of le ft foot, initial encounter (Primary Dx) Start: 10-07-2023 End: 10-07-2023 ambulatory CHAYO PEREIRA Facility:[facility] Start: 10-07-2023 End: 10-07-2023 Office outpatient new 30 minutes Jorge Fernandez MD Work Phone: [facility] Comment on above: Puncture wound of le ft foot, initial encounter (Primary Dx) Start: 08-16-2022 End: 08-16-[address] Diandra Zeng Work Phone: [facility] Work Phone: Start: 08-16-2022 End: 08-16-[address] Diandra Zeng Work Phone: [facility]-Outpatient Breast Imaging Start: 07-04-2022 End: 07-04-[address] Diandra Zeng Work Phone: [facility] Work Phone: Start: 07-04-2022 End: 07-04-[address] Diandra Zeng Work Phone: [facility]-Laboratory, Specimen Start: 07-04-2022 End: 07-04-[address] Diandra Zeng Work Phone: [facility] Start: 03-25-2022 End: 03-25-[address] Diandra Zeng Work Phone: [facility] Start: 08-12-2021 End: 08-12-[address] Chayo Pereira Work Phone: [facility]Outpatient [facility] Start: 08-06-2021 End: 08-06-[address] Cahyo Pereira Work Phone: [facility]-Laboratory Start: 08-06-2021 End: 08-06-[address] Chayo Pereira Work Phone: [facility] Start: 04-23-2021 End: 04-23-[address] Chayo Pereira Work Phone: [facility]-Laboratory, Specimen Procedures Date Procedure Procedure Detail Performing Clinician Start: 08-16-2022 Screening mammography Fallon Zeng Work Phone: Start: 08-12-2021 Screening mammography D pamela Pereira Work Phone: Plan of Treatment Date Care Activity Detail Author Start: 10-06-2033 Urine microalbumin profile DTaP,Tdap,Td Vaccine (2 - Td or Tdap) [facility] Start: 08-22-2024 X-ray of cervical spine Cerv S pine 2 or 3 Views [facility] Start: 11-05-2023 Influenza vaccination Influenza Vacc ine (#1) [facility] Start: 11-04-2022 Covid-19 Vaccine ( season) Covid-19 Vaccine () [facility] Start: 07-04-2022 Liquid based cervica l cytology screening [facility] Start: 11-16-2019 Diabetes Screening Diabetes Screenin g [facility] Start: 11-16-2019 Lipid panel Lipid Screening [facility] Start: 11-16-2019 Screening for malign ant neoplasm of colon [facility] Start: 2014 Screening for malign ant neoplasm of breast Mammogram Screening [facility] Start: 11-16-1995 Screening for malign ant neoplasm of cervix Cervical Cancer Screening [facility] Start: 1993 Hepatitis B Vaccine (1 of 3 - 19+ 3-dose series) Hepatitis B Vaccine (1 of 3 - 19+ 3-dose series) [facility] Start: 1992 Anxiety Screening Anxiety Screening [facility] Start: 1992 Depression Screening Depression Scre ening [facility] Start: 1992 Hepatitis C screening Hepatitis C Sc reening [facility] Start: 1992 HIV screening HIV Screening [facility] MG Breast - bilatera l Screening [facility] Path report.final Dx Spec [facility] End: 11-11-2024 XR Foot - left AP and Lateral and oblique XR FOOT GENERAL 3V AP/LAT/OBL LEFT Radiology Routine Puncture wound of left foot, initial encounter 1 Occurrences starting 10/13/2023 until 11/11/2024 [facility] Work Phone: Comment on above: 1 Occurrences starti ng 10/13/2023 until 11/11/2024 XR Foot - left AP an d Lateral and oblique XR FOOT GENERAL 3V AP/LAT/OBL LEFT Radiology Routine Puncture wound of left foot, initial encounter 10/13/2023 12:01 PM EDT [facility] Immunizations Immunization Date Immunization Notes Care Provider Fa cility 10-07-2023 tetanus toxoid, redu mirian diphtheria toxoid, and acellular pertussis vaccine, adsorbed Jorge Fernandez MD Work Phone: [facility] Payers Date Payer Category Payer Self-pay [id number] 2024 Unknown [id number] 2020 Unknown [id number] 2020 Unknown [id number] Unknown [id number] Unknown [employer] [id number] Unknown [id number] [id number] Unknown [id number] [id number] Unknown [id number] [id number] Unknown [id number] [id number] [id number] Social History Date Type Detail Facility Start: 08-06-2021 End: 07-04-2022 Tobacco smoking status NHIS Unknown if ever smoked [facility] Start: 1975 Sex Assigned At Female [facility] Start: 10-07-2023 [facility] History of tobacco use Current smoker [facility] Start: 10-07-2023 Tobacco use and exposure Smokeless tobacco non-user [facility] Start: 10-07-2023 End: 10-13-2023 History of Social function [facility] Start: 10-07-2023 End: 10-13-2023 Tobacco use panel [facility] National Score (1-100), lower number is lower risk Not on file [facility] Start: 1975 Sex Assigned At Not on file [facility] Start: 10-13-2023 Alcohol intake Lifetime non-d jay (finding) [facility] Start: 08-22-2024 [facility]finding[facility] Clinical Notes 07-04-2022 to 12-10-2024 Note Date & Type Note Facility 12-10-2024 Discharge summary Note Date/Time December 10, 2024 11:42am [facility] [address] [place] [address] / REHABILITATION SERVICES DISCHARGE SUMMARY MR#: [id number] Acct: [id number] Name: AMAURY MICHAELS Rep #: [id number] : 1975 49 From: Taz Batres PT, ATC Referring Dr.: Dr. Carlyn Taylor MD Status: REG RCR Insurance: [facility] [id number] SELF PAY INSURANCE Patient Information Patient Information: AMAURY MICHAELS was seen in my office for initial evaluation on 09/10/24. The following Plan of Care was established for this patient: POC Established Initial Frequency: 2x /Week Initial Duration: 2-4 Weeks Anticipated Interventions Patient/Client Instruction: Educate patient on: Condition and Plan of Care For the Purpose of:: To improve self management Therapeutic Exercise to Include: Strength training, Endurance training, Balance training, Active ROM and Ayse Exercises For the Purpose of:: To decrease pain, To increase ROM and To improve muscle performance and motor function Intermittent cervical traction: Yes For the Purpose of:: To decrease pain Last Seen Last Seen: This patient was last seen in our office . Pertinent comments regarding their Physical therapy will appear below: Pt has not returned for greater than 30 days and is discontinued at this time. At this point I will be discontinuing this patient from physical therapy. I would be happy to see this patient again in the future if found appropriate by the physician. Thank you! Taz Batres PT, ATC Balance/Gait/Functional tests Balance/Special Test Scores Oswestry Neck Score: 20 <Electronically signed by Taz Batres PT ATC> 12/10/24 1142 CC: Dr. Carlyn Taylor MD ~ [facility] Signed [facility] Work Phone: [phone]) 614-875310-07-2025 Discharge summary [facility] [address] [place] [address] / REHABILITATION SERVICES DISCHARGE SUMMARY MR#: [id number] Acct: [id number] Name: AMAURY MICHAELS Rep #: [id number] : 1975 49 From: Tza Batres PT, ATC Referring Dr.: Dr. Carlyn Taylor MD Status: REG R Insurance: [facility] [id number] SELF PAY INSURANCE Patient Information Patient Information: AMAURY MICHAELS was seen in my office for initial evaluation on 09/10/24. The following Plan of Care was established for this patient: POC Established Initial Frequency: 2x /Week Initial Duration: 2-4 Weeks Anticipated Interventions Patient/Client Instruction: Educate patient on: Condition and Plan of Care For the Purpose of:: To improve self management Therapeutic Exercise to Include: Strength training, Endurance training, Balance training, Active ROM and Ayse Exercises For the Purpose of:: To decrease pain, To increase ROM and To improve muscle performance and motor function Intermittent cervical traction: Yes For the Purpose of:: To decrease pain Last Seen Last Seen: This patient was last seen in our office . Pertinent comments regarding their Physical therapy willappear below: Pt has not returned for greater than 30 days and is discontinued at this time. At this point I will be discontinuing this patient from physical therapy. I would be happy to see this patient again in the future if found appropriate by the physician. Thank you! Taz Batres, PT, ATC Balance/Gait/Functional tests Balance/Special Test Scores Oswestry Neck Score: 20 12/10/24 1142 CC: Dr. Carlyn Taylor MD ~ [facility] Signed [facility]03-28-2025 Evaluation note* Diagnosis Onset Date Resolution Status Admit Date Abdominal pain resolved May 10:20am [facility] Work Phone: [phone] Telephone encounter Note* Telephone Encounter - Guadalupe Castañeda LPN - 10/18/2023 4:38 PM EDT Patient notified of results and provider's instructions. Patient verbalizes understanding. Guadalupe Castañeda LPN [facility]08-14-2024 Miscellaneous Notes* Telephone Encounter - Guadalupe Castañeda LPN - 10/18/2023 4:38 PM EDT Patient notified of results and provider's instructions. Patient verbalizes understanding. Guadalupe Castañeda LPN * Telephone Encounter - Arleen Frazier - 10/18/2023 12:48 PM EDT Please call patient to inform her that xrays do not show any acute fracture or apparent foreign body If she is doing well, continue with activity as tolerated Arleen Frazier DPM documented in this encounterA[facility]-2024 Telephone encounter Note * Telephone Encounter - Arleen Frazier - 10/18/2023 12:48 PM EDT Please call patient to inform her that xrays do not show any acute fracture or apparent foreign body If she is doing well, continue with activity as tolerated Arleen Frazier DPM [facility] Work Phone: [phone]) 395-570008-09-2024 History of Present illness Narrative* Monica Diaz, (R) - 10/13/2023 11:50 AM EDT Radiology Service Progress Note PATIENT NAME: Amaury Michaels DATE OF SERVICE: October 13, 2023 TIME: 1:43 PM PATIENT IDENTITY VERIFICATION COMPLETED USING TWO (2) IDENTIFIERS: Name and Date of confirmedby patient verbally. FALL SCREENING: Has the patient had 2 falls in the last year or 1 fall with injury or currently using an Ambulatory Assistive Device (Walker, Cane, Wheelchair, Crutches, etc.)? No PATIENT GENDER DATA: Female. status: : No status: NO. PATIENT RELEVANT IMPLANT DATA REVIEWED: Not Applicable PATIENT PRESENTS WITH AN IMPLANTABLE OR ATTACHED BIODIESEL PROCESSING TECHNICIAN: No RADIOLOGY DEPARTMENT: General X-ray: Exam(s) Completed: Lower Extremity X- Ray(s): Foot, Left and Wt. Bearing PERIPHERAL IV DATA: Not applicable SIGNED BY: RT Tawanna([place]) October 13, 2023 1:43 PM documented in this encounterAdena Health System08-09-2024 NoteHNO ID: [id number] Author: MONICA DIAZ RT(R) Service: ? Author Type: Technologist Type: Progress Notes Filed: 10/13/2023 13:44 Note Text: Radiology Service Progress Note PATIENT NAME: Amaury Michaels DATE OF SERVICE: October 13, 2023 TIME: 1:43 PM PATIENT IDENTITY VERIFICATION COMPLETED USING TWO (2) IDENTIFIERS: Name and Date of confirmed by patient verbally. FALL SCREENING: Has the patient had 2 falls in the last year or 1 fall with injury or currently using an Ambulatory Assistive Device (Walker, Cane, Wheelchair, Crutches, etc.)? No PATIENT GENDER DATA: Female. status: : No status: NO. PATIENT RELEVANT IMPLANT DATA REVIEWED: Not Applicable PATIENT PRESENTS WITH AN IMPLANTABLE OR ATTACHED BIODIESEL PROCESSING TECHNICIAN: No RADIOLOGY DEPARTMENT: General X-ray: Exam(s) Completed: Lower Extremity X-Ray(s): Foot, Left and Wt. Bearing PERIPHERAL IV DATA: Not applicable SIGNED BY: RT Tawanna([place]) October 13, 2023 1:43 [facility]08-09-2024 NoteHNO ID: [id number] Author: ARLEEN FRAZIER, ? Service: ? Author Type: Physician Type: Progress Notes Filed: 10/13/2023 12:45 Note Text: Initial Podiatric Office Visit: Chief Complaint: This 47 year old female who presents with chief complaint:puncture wound of left foot HPI Patient presents to clinic for evaluation of left foot On October 07, 2023, she stepped on a mini nail. She was wearing sandals without socks Patient believes the nail penetrated the skin She went to urgent care Was placed on levaquin x 3 days. Was noticing pus and swelling but today, the foot is looking better. Almost cancelled apppointment No major pain currently. 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 multivit with calcium,iron,min (WOMEN'S DAILY MULTIVITAMIN ORAL) Take by mouth once daily. loratadine (CLARITIN ORAL) Take by mouth once daily. vitamin B complex (B COMPLEX 1 ORAL) Take by mouth once daily. No current facility-administered medications for this visit. ALLERGIES Allergen Reactions Asa [Aspirin] Other: See Comments Nose bleeds PAST SURGICAL HISTORY No date: DANDC, DIAG AND/OR THERAPEUTIC Comment: DANDC with polyp excision [facility] 2010 and [facility] 2018 FAMILY HISTORY Problem Relation Age of Onset Hypertension Mother Skin Cancer Mother Prostate Cancer Father Hypertension Sister Blood Clots Sister Diabetes Maternal Grandmother Diabetes Maternal Grandfather Stroke Maternal Grandfather Heart Attack Maternal Grandfather Stroke Paternal Grandfather Diabetes Other Social History Tobacco Use Smoking status: Former Smokeless tobacco: Never Substance Use Topics Alcohol use: Never Drug use: Never REVIEW OF SYSTEMS GENERAL: Negative for Malaise, significant weight loss, fever RESPIRATORY: Negative for cough, wheezing and shortness of breath CARDIOVASCULAR: Negative for chest pain, leg swelling and palpitations GI: Negative for abdominal discomfort, blood in stools or black stools and change in bowel habits : Negative for dysuria, frequency and incontinence MUSCULOSKELETAL: Negative for joint pain or swelling, back pain, and muscle pain. SKIN: Negative for lesions, rash, and itching. HEMATOLOGY/LYMPHOLOGY Negative for prolonged bleeding, bruising easily, and swollen nodes. ENDOCRINE: Negative for cold or heat intolerance, polyuria, polydipsia and goiter. NEURO: negative Physical Exam: Constitutional: Pt is a well developed 47 year old female who is alert, oriented and cooperative Eyes: Following during examination. No redness or drainage. Respiratory: RR normal and nonlabored. Even breathing. No evidence of distress or shortness of breath. Psychology: Patient is engaged during conversation. Normal affect and mood. Does not appear depressed or anxious during encounter. Vascular: Dorsalis pedis and posterior tibial pulses palpable as b/l Capillary Fill time < 5 seconds to digits 1-5 b/l Skin temperature warm to warm proximal to distal b/l Hair growth present to digits Neurological: intact light touch/epicritic sensation b/l intact protective sensation no significant neurological deficits Dermatological: Nails 1-5 b/l appear normal. Webspaces clean and dry 1-4 b/l. Skin appears well hydrated and supple. good color, texture, turgor. No open lesions present. No callosities present. Healed puncture wound of left foot. No signs of infection Musculoskeletal/Orthopaedic: Patient has no pain to palpation of b/l feet Radiographs: ordered ASSESSMENT: (S91.332A) Puncture wound of left foot, initial encounter (primary encounter diagnosis) PLAN: 1. History and physical examination performed. 2. Discussed puncture wound of left foot. Has completed 3 days of levquin. Offered refill to complete for one week. She chose to monitor 3. Baseline xray ordered 4. Offloading pads dispensed Arleen Frazier DPM Podiatry [address] [facility] [address] Dept: [phone] [facility] History of Present illness Narrative* Arleen Frazier - 10/13/2023 11:30 AM EDT Initial Podiatric Office Visit: Chief Complaint: This 47 year old female who presents with chief complaint:puncture wound of left foot HPI Patient presents to clinic for evaluation of left foot On October 07, 2023, she stepped on a mini nail. She was wearing sandals without socks Patient believes the nail penetrated the skin She went to urgent care Was placed on levaquin x 3 days. Was noticing pus and swelling but today, the foot is looking better. Almost cancelled apppointment No major pain currently. 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 multivit with calcium,iron,min (WOMEN'S DAILY MULTIVITAMIN ORAL) Take by mouth once daily. loratadine (CLARITIN ORAL) Take by mouth once daily. vitamin B complex (B COMPLEX 1 ORAL) Take by mouth once daily. No current facility-administered medications for this visit. ALLERGIES Allergen Reactions Asa [Aspirin] Other: See Comments Nose bleeds PAST SURGICAL HISTORY No date: D&C, DIAG AND/OR THERAPEUTIC Comment: D&C with polyp excision [facility] 2010 and [facility] 2018 FAMILY HISTORY Problem Relation Age of Onset Hypertension Mother Skin Cancer Mother Prostate Cancer Father Hypertension Sister Blood Clots Sister Diabetes Maternal Grandmother Diabetes Maternal Grandfather Stroke Maternal Grandfather Heart Attack Maternal Grandfather Stroke Paternal Grandfather Diabetes Other Social History Tobacco Use Smoking status: Former Smokeless tobacco: Never Substance Use Topics Alcohol use: Never Drug use: Never REVIEW OF SYSTEMS GENERAL: Negative for Malaise, significant weight loss, fever RESPIRATORY: Negative for cough, wheezing and shortness of breath CARDIOVASCULAR: Negative for chest pain, leg swelling and palpitations GI: Negative for abdominal discomfort, blood in stools or black stools and change in bowel habits : Negative for dysuria, frequency and incontinence MUSCULOSKELETAL: Negative for joint pain or swelling, back pain, and muscle pain. SKIN: Negative for lesions, rash, and itching. HEMATOLOGY/LYMPHOLOGY Negative for prolonged bleeding, bruising easily, and swollen nodes. ENDOCRINE: Negative for cold or heat intolerance, polyuria, polydipsia and goiter. NEURO: negative Physical Exam: Constitutional: Pt is a well developed 47 year old female who is alert, oriented and cooperative Eyes: Following during examination. No redness or drainage. Respiratory: RR normal and nonlabored. Even breathing. No evidence of distress or shortness of breath. Psychology: Patient is engaged during conversation. Normal affect and mood. Does not appear depressed or anxious during encounter. Vascular: Dorsalis pedis and posterior tibial pulses palpable as b/l Capillary Fill time < 5 seconds to digits 1-5 b/l Skin temperature warm to warm proximal to distal b/l Hair growth present to digits Neurological: intact light touch/epicritic sensation b/l intact protective sensation no significant neurological deficits Dermatological: Nails 1-5 b/l appear normal. Webspaces clean and dry 1-4 b/l. Skin appears well hydrated and supple. good color, texture, turgor. No open lesions present. No callosities present. Healed puncture wound of left foot. No signs of infection Musculoskeletal/Orthopaedic: Patient has no pain to palpation of b/l feet Radiographs: ordered ASSESSMENT: (S91.332A) Puncture wound of left foot, initial encounter (primary encounter diagnosis) PLAN: 1. History and physical examination performed. 2. Discussed puncture wound of left foot. Has completed 3 days of levquin. Offered refill to complete for one week. She chose to monitor 3. Baseline xray ordered 4. Offloading pads dispensed Arleen Frazier DPM Podiatry [address] [address] [address] [address] Dept: [phone] Dept * Guadalupe Castañeda LPN - 10/13/2023 11:17 AM EDT [facility] ROOMING INTAKE FLOWSHEET DATA Pain Pain Level: 1 Pain Location: Foot-Left Description: Sore Duration Amount of Time: 1 Duration Units: Weeks Frequency: Intermittent Intervention/Comfort measure: Relaxation, Reposition, Medication Patient presents with: Left Foot - New, Puncture Wound, Pain, Swelling Guadalupe Castañeda LPN documented in this encounterAdena Health System08-09-2024 NoteHNO ID: [id number] Author: GUADALUPE CASTAÑEDA LPN Service: ? Author Type: LICENSED NURSE Type: Progress Notes Filed: 10/13/2023 12:45 Note Text: AMB ROOMING INTAKE FLOWSHEET DATA Pain Pain Level: 1 Pain Location: Foot-Left Description: Sore Duration Amount of Time: 1 Duration Units: Weeks Frequency: Intermittent Intervention/Comfort measure: Relaxation, Reposition, Medication Patient presents with: Left Foot - New, Puncture Wound, Pain, Swelling Guadalupe Castañeda, [facility]08-03-2024 NoteHNO ID: [id number] Author: JORGE FERNANDEZ MD Service: ? Author Type: Physician Type: Progress Notes Filed: 10/07/2023 13:48 Note Text: Patient presents with: Trauma: Stepped on 2 inch Mini nail, stepped about an inch onto it, states she has pain in her Left foot HPI: Patient punctured her left foot with a nail while walking outside in slides earlier today. She had bleeding from the site of puncture site in the sole of her left foot. She has little pain at the site. The nail looked intact when removed. Last tetanus booster was about 7 or 8 years ago. Denies any significant health problems. She does have past history of DVT. 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 multivit with calcium,iron,min (WOMEN'S DAILY MULTIVITAMIN ORAL) Take by mouth once daily. loratadine (CLARITIN ORAL) Take by mouth once daily. vitamin B complex (B COMPLEX 1 ORAL) Take by mouth once daily. ALLERGIES: ALLERGIES Allergen Reactions Asa [Aspirin] Other: See Comments Nose bleeds VITALS: BP 150/93 Pulse 70 Temp 36.5 ?C (97.7 ?F) Resp 20 Wt 89 kg (196 lb 3.4 oz) LMP 05/24/2018 (Exact Date) SpO2 100% BMI 32.69 kg/m? PHYSICAL EXAM: GEN: pleasant, alert, no acute distress FOOT: left. Puncture sole of foot at the first metatarsal head. No pain with toe range of motion. Minimal discomfort with palpation of the puncture. ASSESSMENT/PLAN: 1. Puncture wound of left foot, initial encounter - ICD9: 892.0, ICD10: S91.332A - TDAP VACCINE, AGE 7+ YR (ADACEL, BOOSTRIX) - LEVOFLOXACIN 750 MG TABLET prophylaxis Follow up with signs of infection such as increasing redness, pain, swelling, purulent drainage, or fever/malaise. Jorge Fernandez, [facility]08-03-2024 History of Present illness Narrative* Jorge Fernandez MD - 10/07/2023 1:00 PM EDT Patient presents with: Trauma: Stepped on 2 inch Mini nail, stepped about an inch onto it, states she has pain in her Left foot HPI: Patient punctured her left foot with a nail while walking outside in slides earlier today. She had bleeding from the site of puncture site in the sole of her left foot. She has little pain at the site. The nail looked intact when removed. Last tetanus booster was about 7 or 8 years ago. Denies any significant health problems. She does have past history of DVT. 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 multivit with calcium,iron,min (WOMEN'S DAILY MULTIVITAMIN ORAL) Take by mouth once daily. loratadine (CLARITIN ORAL) Take by mouth once daily. vitamin B complex (B COMPLEX 1 ORAL) Take by mouth once daily. ALLERGIES: ALLERGIES Allergen Reactions Asa [Aspirin] Other: See Comments Nose bleeds VITALS: BP 150/93 Pulse 70 Temp 36.5 C (97.7 F) Resp 20 Wt 89 kg (196 lb 3.4 oz) LMP 05/24/2018 (Exact Date) SpO2 100% BMI 32.69 kg/m PHYSICAL EXAM: GEN: pleasant, alert, no acute distress FOOT: left. Puncture sole of foot at the first metatarsal head. No pain with toe range of motion. Minimal discomfort with palpation of the puncture. ASSESSMENT/PLAN: 1. Puncture wound of left foot, initial encounter - ICD9: 892.0, ICD10: S91.332A - TDAP VACCINE, AGE 7+ YR (ADACEL, BOOSTRIX) - LEVOFLOXACIN 750 MG TABLET prophylaxis Follow up with signs of infection such as increasing redness, pain, swelling, purulent drainage, orfever/malaise. Jorge Fernandez MD documented in this encounterAdena Health System05-01-2023 NotePap Smear Specimen AdequacyMay 2022 5:09pmComment.Satisfactory for evaluation. Endocervical and/or squamous metaplasticcells (endocervical component)are present.[facility] INTERFACED A#[id number] HospitalComment on above:Satisfactory for evaluation. Endocervical and/or squamous metaplasticcells (endocervical component)are present.Evaluation note* Diagnosis Onset Date Resolution Status Abdominal pain acute [facility] Work Phone: Evaluation note* Diagnosis Onset Date Resolution Status Abdominal pain acute Climacteric acute Encounter for routine gynecological examination noneactive [facility] Work Phone: Evaluation note* Diagnosis Onset Date Resolution Status Climacteric acute Encounter for routine gynecological examination noneactive [facility] Work Phone: Evaluation note* Diagnosis Puncture wound of left foot, initial encounter- Primary documented in this encounter [facility] note* Diagnosis Puncture wound of left foot, initial encounter- Primary documented in this encounter [facility] note* Diagnosis Puncture wound of left foot, initial encounter documented in this encounter [facility] noteNo assessment information availableWCherrington Hospital Work Phone: Reason for referral (narrative)* Diagnostic Procedure Only (Routine) - Closed Specialty Diagnoses / Procedures Referred By Jackie granda Referred To Contact XR IMAGING Diagnoses Puncture wound of left foot, initial encounter Procedures XR FOOT GENERAL 3V AP/LAT/OBL LEFT RADEX FOOT COMPLETE MINIMUM 3 VIEWS Arleen Frazier [address] [place] [address] [place] [id number] Referral ID Status Reason Start Date Expiration Date V isits Requested Visits Authorized [id number] Closed Auto-Generate d Referral 10/13/2023 11/11/2024 1 1 [facility] for referral (narrative)No reason for referral information [facility]San [facility] Work Phone: Reason for visit Narrative* Diagnostic Procedure Only (Routine) - Closed Specialty Diagnoses / Procedures Referred By Jackie granda Referred To Contact XR IMAGING Diagnoses Puncture wound of left foot, initial encounter Procedures XR FOOT GENERAL 3V AP/LAT/OBL LEFT RADEX FOOT COMPLETE MINIMUM [address] [place] [address] [place] [id number] Referral ID Status Reason Start Date Expiration Date V isits Requested Visits Authorized [id number] Closed Auto-Generate d Referral 10/13/2023 11/11/2024 1 1 [facility] Chief Complaint and Reason for Visit Chief Complaint irritable bowel? 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 Reason for Visit Climacteric Encounter for routine gynecological examination Chief Complaint Admit Date fOLLOW UP May 31, 2024 10: 20am XRAY August 22, 2024 2:54 pm Reason for Visit Admit Date Abdominal pain May 31, 2024 10: 20am Chief Complaint Admit Date CERVICAL RX HERE September 27, 2024 3:30 pm Family History Relationship Condition Age at Onset Recorded Date/T srikanth mother High blood cholesterol Unknown sister Pulmonary embolism Unknown Irritable bowel syndrome Unknown Thrombophilia associ ated with 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 Unknown Relationship Condition Age at Onset Recorded Date/T srikanth mother High blood cholesterol Unknown sister Pulmonary embolism Unknown Irritable bowel syndrome Unknown Thrombophilia associ ated with 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 Unknown Advance Directives Advance Directive Response Recorded Date/ Time Living Will No November 29, 2016 10:53am Power of Steel Grinder No November 10:53am Advance Directive Response Recorded Date/ Time Living Will No May 31, 2022 4:13pm Power of Steel Grinder No May 31 4:13pm Summary Purpose Additional Source Comments Goals (unrecognized section and content) Goals may be documented in a n alternate sectionGoals may be documented in an alternate sectionGoals may be documented in an alternate sectionGoals may be documented in an alternate sectionGoals may be documented in an alternate section Care Teams (unrecognized sec tion and content) Team Status: Active Member Role Status Dates Dr. Chayo Pereira DO Family Provider Active Dr. Diandra Zeng MD Primary Care Provider Active Team Status: Inactive Member Role Status Dates Dr. Diandra Zeng MD Primary Care Provider, Joon g Provider Active Dr. Charlie Juarez DO Attending Provider Active Team Status: Inactive Member Role Status Dates Dr. Diandra Zeng MD Primary Care Provider, Referrin g Provider Active Brandy Duarte LOGISTICS ASSOCIATE, LOGISTICS ASSOCIATE-C Attending Provider Active Team Status: Inactive Member Role Status Dates Dr. Diandra Zeng MD Primary Care Provider Active Brandy Duarte LOGISTICS ASSOCIATE, LOGISTICS ASSOCIATE-C Attending Provider Active Logistics Lead Relationship Specialty Start Date End Date Chayo Pereira DO [address] [place] [address] PCP - General Family Medicine 06/14/18 Logistics Lead Relationship Specialty Start Date End Date Chayo Pereira DO [address] [place] [address] PCP - General Family Medicine 06/14/18 Logistics Lead Relationship Specialty Start Date End Date Chayo Pereira DO [address] [place] [address] PCP - General Family Medicine 06/14/18 Logistics Lead Relationship Specialty Start Date End Date Chayo Pereira DO [address] [place] [address] PCP - General Family Medicine 06/14/18 Team Status: Inactive Member Role Status Dates Dr. Diandra Zeng MD Primary Care Provider Active Start: May 31, 2024 End: May 31, 2024 Dr. Diandra Zeng MD Referring Provider Active Start: May 31, 2024 End: May 31, 2024 Dr. Charlie Juarez DO Attending Provider Active Start: May 31, 2024 End: May 31, 2024 Team Status: Inactive Member Role Status Dates Dr. Diandra Zeng MD Primary Care Provider Active Start: August 22, 2024 End: August 22, 2024 Dr. Parveen Hernández MD Attending Provider Active S tart: August 22, 2024 End: August 22, 2024 Team Status: Active Member Role/Relationship Status Dates Dr. Carlyn Taylor MD Primary care physician Active Team Status: Inactive Member Role/Relationship Status Dates Dr. Carlyn Taylor MD Primary care physician Active Start: September 27, 2024 End: September 27, 2024 Dr. Carlyn Taylor MD Attending physician Active Start: September 27, 2024 End: September 27, 2024 Dr. Carlyn Taylor MD Referring Provider Active Start: September 27, 2024 End: September 27, 2024 Source Comments (unrecognize d section and content) In the event this informatio n is protected by the Federal Confidentiality of Alcohol and Drug Abuse Patient Records regulations: The Federal rules restrict any use of the information to criminally investigate or prosecute any alcohol or drug abuse patient.[facility] the event this information is protected by the Federal Confidentiality of Alcohol and Drug Abuse Patient Records regulations: The Federal rules restrict any use of the information to criminally investigate or prosecute any alcohol or drug abuse patient.[facility] the event this information is protected by the Federal Confidentiality of Alcohol and Drug Abuse Patient Records regulations: The Federal rules restrict any use of the information to criminally investigate or prosecute any alcohol or drug abuse patient.[facility] the event this information is protected by the Federal Confidentiality of Alcohol and Drug Abuse Patient Records regulations: The Federal rules restrict any use of the information to criminally investigate or prosecute any alcohol or drug abuse patient.[facility] Reason for Visit (unrecogniz ed section and content) Reason Comments Trauma Stepped on 2 [address] nail, stepped about an inch onto it, states she has pain in her Left foot Reason Comments New Puncture Wound Pain Swelling Reason Comments Results INFORMATION SOURCE (unrecogn ized section and content) DATE CREATED AUTHOR 10/19/2023 [facility] DATE CREATED AUTHOR AUTHOR'S RIGO SEXTON 12/15/[address] [facility] FOR RECORDS PERTAINING TO PATIENTS WHO ARE OR HAVE BEEN ENROLLED IN A CHEMICAL DEPENDENCY/SUBSTANCEABUSE PROGRAM, SOME INFORMATION MAY BE OMITTED. This clinical summary was aggregated from multiple sources. Caution should be exercised in using it in the provision of clinical care. This summary normalizes information from multiple sources, and as a consequence, information in this document may materially change the coding, format and clinical context of patient data. In addition, data may be omitted in some cases. CLINICAL DECISIONS SHOULD BE BASED ON THE PRIMARY CLINICAL RECORDS. [employer] [facility]. provides no warranty or guarantee of the accuracy or completeness of information in this document.
--- OUTSIDE RECORDS SUMMARY | 2025-02-13 18:12 | XMS RPT_ITS | CCD ---
Author Organization [facility] Care Team Providers Care Package Drier Name Role Phone Dr. Chayo Pereira Primary Care Provider Dr. Charlie Juarez Attending Provider Dr. Diandra Zeng Referring Provider [phone] Dr. Diandra Zeng Primary Care Provider Dr. Diandra Zeng Referring Provider Dr. Charlie Juarez Attending Provider Felicia DELIVERY TRUCK DRIVER, KATHY Nava Attending Provider Dr. Diandra Zeng Primary Care Provider Dr. Diandra Zeng Referring Provider [phone] Chayo Pereira DO Primary Care Provider ARLEEN FRAZIER Referring Unavailable YULISSAYS, CHAYO A Primary Care Unavailable ARLEEN FRAZIER Attending Unavailable KAJAL, CHAYO A Primary Care Unavailable YULISSAYS, CHAYO A Primary Care Unavailable Dr. Diandra Zeng MD Primary Care Provider Dr. Diandra Zeng MD Referring Provider Dr. Charlie Juarez DO Attending Provider Dr. Parveen Hernández MD Attending Provider [phone] Diandra Zeng Primary Care Unavailable Parveen Hernández [...] [ASPIRIN] Drug Allergy 7 Other: See Comments [facility] (5 sources) Wheat preparation Drug Allergy 2 [facility] (1 source) dairy Allergy to substance 2 [facility] Work Phone: (4 sources) cow milk allergenic extract Drug Allergy 3 NEEDS FOLLOW-UP [facility] (1 source) Aspirin Drug Allergy 5 [facility] Repository (1 source) Milk Drug allergy (disorder) 5 [facility] Rep[facility] (1 source) Wheat preparation Drug Allergy 5 [facility] Repository Medications Current Medications Medication Drug Class(es) [...] DAILY November 29, 2016 11:01am Ginkgo Biloba Napavine Extract (9 sources) Start: 11-29-2016 take 120 mg by mouth once daily Ginkgo Biloba Napavine Extract Active 120 MG PO DAILY November 29, 2016 10:49am Start: 11-29-2016 take 1 tablet by trell th once daily Start: 11-29-2016 take 1 tablet by trell th once daily Ginkgo Biloba Napavine Extract 60 MG tablet Active 120 mg PO DAILY November 29, 2016 12:00am Start: 11-29-2016 take 120 mg by mouth once nay y Ginkgo Biloba Napavine Extract Active 120 MG PO DAILY November 29, 2016 12:00am ginkgo biloba (G INKOBA ORAL) Take by mouth once daily. 0 Active Ginseng (5 sources) Start: 11-29-2016 take 100 mg by mouth once daily Ginseng Active 100 MG PO DAILY November 29, 2016 10:49am Start: 11-29-2016 take 1 capsule by mo [facility] once daily Start: 11-29-2016 take 1 capsule by mo [facility] once daily Ginseng 100 MG capsule Active [...] Agonist Start: 12-05-2016 End: 07-04-2022 Hydrocodone-Acetamin ophen (Hawkins 5-325 Tablet) 1 EACH tablet Discontinued 1 [...] - PT (1)on Re-Evaluation - PT (1) [facility] Physical Therapy [facility] [address] [facility] [place] [address] / REEVALUATION / MEDICARE RECERTIFICATION PHYSICAL THERAPY MR#: [id number] Acct: [id number] Name: AMAURY MICHAELS Rep #: [id number] : 1975 48 From: Taz Batres PT, ATC Referring Dr.: Dr. Carlyn Taylor MD Status:REG R Insurance: [facility] [id number] SELF PAY INSURANCE Re-Evaluation Intro: Dr. Carlyn [...] do not hesitate to contact me at [phone] by phone or if you have questions or concerns regarding this new plan of care! Sincerely, Taz Batres PT, ATC 09/27/24 1558 CC: Dr. Carlyn Taylor MD [facility] Signed For Medicare only, by signing this I certify the plan of care. Physicians Signature Date Normal [facility] Inital Evaluation (1) - PTon 09-11-2024 Inital Evaluation (1) - PT [facility] Physical Therapy Health[address] [place] [address] / REHABILITATION SERVICES INITIAL EVALUATION MR#: [id number] Acct: [id number] Name: AMAURY MICHAELS Rep #: [id number] : 1975 48 From: Taz Batres PT, ATC Referring Dr.: Dr. Carlyn Taylor MD Status: REG R Insurance: [facility] [id number] SELF PAY INSURANCE Patient's Visit Information Visit [...] had an x-ray which reveals DDD. Pt [id number] she does have sleep difficulty secondary to [...] to be FAXED BACK to us at [phone] for Medicare purposes. For Medicare only, by signing this I certify the plan of care. Please let me know if there are questions or concerns regarding this plan of care. Physician Signature: Date : 09/11/24 0850 CC: Dr. Carlyn Taylor MD [facility] Signed Normal [facility] Cerv Spine 2 or 3 Viewson Cerv Spine 2 or 3 Views [facility] Imaging Services [address] [place] [address] Cerv Spine 2 or 3 Views MR#: [id number] Acct: [id number] Name: AMAURY MICHAELS Rep #: [id number] : 1975 F 48 From: Maulik verduzco MD PCP: Dr. Diandra Zeng MD Status: DEP AMB Study: Cerv Spine 2 or 3 Views Date of Exam: 08/22/24 Exam# [id number] Ordering Dr: Carlyn Taylor MD PROCEDURE: CERV [...] Spondylosis, more prominent at C6-C7. Reading [facility] [address] CC: Dr. Carlyn Taylor MD; Dr. Diandra Zeng MD It Data Architect: Signed Normal [facility] Gastroenterology Visit Repor ton 05-31-2024 Gastroenterology Visit Report [facility] Gastroenterology [address] 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 Normal [facility] 10-18-2023 LENYN Telephone (PODIMM) AMAURY MICHAELS ([id number]) 1975 F Date Time Provider Department 10/18/23 [...] Encounter Status:Closed by GUADALUPE CASTAÑEDA on 10/18/23 [facility] CNOVon 10-13-2023 CNOV Office Visit (PODIWS ) AMAURY MICHAELS ([id number]) 1975 F Date Time Provider Department 10/13/23 [...] AND/OR THERAPEUTIC Comment: DANDC with polyp excision [facility] 2010 and [facility] 2018 FAMILY HISTORY Problem Relation Age [...] monitor 3 (more content not included)... Normal [facility] XR FOOT 3V AP/LAT/OBL LTon 0 10-13-2023 XR FOOT 3V AP/LAT/OBL LT * * *Final Report* * * DATE OF EXAM: Oct 13 2023 12:01PM [id number] [id number] - XR FOOT 3V AP/LAT/OBL LT / PROCEDURE REASON: Puncture wound of left foot, initial encounter * * * * Physician Interpretation * * * * EXAMINATION / TECHNIQUE: XR FOOT 3V AP/LAT/OBL LT ACCESSION NUMBER: [id number] HISTORY: PT STATES SHE STEPPED ON NAIL [...] present. Small plantar calcaneal enthesophyte is present. It Data Architect: [facility] Transcribe Date/Time: Oct 17 2023 7:46P Dictated by : JUNIE RUBIO MD This examination was interpreted and the report reviewed and electronically signed by: JUNIE RUBIO MD on Oct 17 2023 7:48PM EST [id number] Normal [facility] CNOVon 10-07-2023 [facility] AMAURY MICHAELS ([id number]) 1975 F Date Time Provider Department 10/07/23 12:45 PM JORGE FERNANDEZ [facility] During your visit today, we recorded [...] Order(s):TDAP VACCINE, AGE 7+ YR (ADACEL, BOOSTRIX) [[id number]] Order #: [id number] levoFLOXacin (LEVAQUIN) 750 mg tabletTake 1 tablet [...] Reported on 12/01/2020 Level of Service: OFFICE/OUTPATIENT [facility] 30 MINUTES [67302] Encounter Status:Closed by JORGE FERNANDEZ on 10/07/23 Normal [facility] Cervical or vagninal specime n microscopic examination by cytology stain (reported asOrdered By: Brandy Duarte on 07-04-2022 Cytology report Cyto stain Doc (Cvx/Vag) Comment . [facility] Comment on above: The Pap smear is [...] DNA Probe+sig amp Ql (Cvx) Negative Negative [facility] Comment on above: This nucleic acid am plification test detects fourteen high-risk HPV types (16,18,31,33,35,39,45,51,52,56,58,59,66,68)without differentiation. Laboratory - CytologyOrdered By: Brandy Duarte on 07-04-2022 Water/Wastewater Engineer Cyto stain Nom (Cvx/Vag) [ID] Comment . [facility] Comment on above: Joanne West, [employer] hnologist (ASCP) Laboratory - Miscellaneous t estsOrdered By: Brandy Duarte on 07-04-2022 Service comment (Unsp spec) [Interp] Comment . [facility] Comment on above: This liquid based Th inPrep(R) pap test was screened withthe use of an image guided system. Service comment (Unsp spec) [Interp] . . [facility] Liquid-based cerv Pap + CT/G C by ILYA w reflex to high-risk HPV for ASCUSOrdered By: Brandy Duarte on 07-04-2022 Cytology report Cyto stain.thin prep Doc (Cvx/Vag) Comment . [facility] Comment on above: Criteria not met, HP V Genotype not performed.Performed at: - [facility] [id number] Director: Yolanda Washington MD, Phone: [phone] at: = - [facility] [id number] Director: Yolanda Washington MD, Phone: [phone] No Panel InformationOrdered By: Brandy Duarte on 07-04-2022 Pathology report final diagnosis Narrative Comment . [facility] Comment on above: NEGATIVE FOR INTRAEP ITHELIAL LESION OR MALIGNANCY. Absolute lymphocyte counton 08-06-2021 Lymphocytes Auto (Unsp spec) [#/Vol] 1.57 10*3/uL 0.83-4.51 [facility] Work Phone: Basophil percentageon 2021 Basophils/100 WBC (Bld) 1.0 % 0-1 [facility] Work Phone: Bilirubin [Mass/Vol] 0.20 mg/dL 0.20-1.00 [facility] Work Phone: Comment on above: For patients on eltr ombopag therapy, use of Dimension [place] TBIL is not recommended. Chloride [Moles/Vol] 105 mmol/L 98-107 [facility] Work Phone: Eosinophils/100 WBC (Bld) 3.0 % 0-5 [facility] Work Phone: Glucose [Mass/Vol] 93 mg/dL 74-106 [facility] Work Phone: Neutrophils (Bld) [#/Vol] 3.8 10*3/uL 2.0-7.7 [facility] Work Phone: Neutrophils/100 WBC (Bld) 60.3 % 47-70 [facility] Work Phone: Potassium [Moles/Vol] 3.8 mmol/L 3.5-5.1 [facility] Work Phone: Protein [Mass/Vol] 7.5 g/dL 6.4-8.2 [facility] Work [facility]: Sodium [Moles/Vol] 138 mmol/L 136-145 [facility] Work Phone: [phone] WBC (Bld) [#/Vol] 6.3 10*3/uL 4.4-11.0 [facility] Work Phone: [phone] Blood erythrocytes count (nu mber/volume)on 08-06-2021 RBC (Bld) [#/Vol] 4.47 10*6/uL 4.2-5.4 [facility] Work Phone: [phone] Blood hemoglobin measurement (mass/volume)on 08-06-2021 Hemoglobin (Bld) [Mass/Vol] 13.4 g/dL 12.0-15.0 [facility] Work Phone: Blood lymphocytes/100 leukoc yteson 08-06-2021 Lymphocytes/100 WBC (Bld) 24.9 % 19-41 [facility] Work Phone: Blood monocytes/100 leukocyt eson 08-06-2021 Monocytes/100 WBC (Bld) 10.6 % 0-10 [facility] Work Phone: Blood platelet mean volumeon 08-06-2021 Platelet mean volume (Bld) [Entitic vol] 10.2 fL 6.2-12.0 [facility] Work Phone: Determination of erythrocyte mean corpuscular volume (MCV)on 08-06-2021 MCV (RBC) [Entitic vol] 89.7 fL 81-99 [facility] Work Phone: Erythrocyte sedimentation ra kiarra 08-06-2021 ESR (Bld) [Velocity] 7 mm/h 0-30 [facility] Work Phone: Hematocrit Auto (Bld) [Volum e fraction]on 08-06-2021 Hematocrit (Bld) [Volume fraction] 40.1 % 37-47 [facility] Work Phone: Laboratory - Chemistry and C hemistry - challengeon 08-06-2021 ALP [Catalytic activity/Vol] 86 U/L 45-117 [facility] Work Phone: ALT [Catalytic activity/Vol] 66 U/L 13-56 [facility] Work Phone: CO2 [Moles/Vol] 30.0 mmol/L 21.0-32.0 [facility] Work Phone: Free T4 [Mass/Vol] 1.08 ng/dL 0.76-1.46 [facility] Work Phone: Globulin (S) [Mass/Vol] 3.7 g/dL 2.2-4.2 [facility] Work Phone: Urea nitrogen/Creatinine [Mass ratio] 30.4 mg/mg 10-20 [facility] Work Phone: Laboratory - Hematology and Cell countson 08-06-2021 Erythrocyte distribution width (RBC) [Entitic vol] 42.7 fL 35.1-43.9 [facility] Work Phone: Erythrocyte distribution width (RBC) [Ratio] 12.9 % 11.6-14.6 [facility] Work Phone: Immature granulocytes/100 WBC (Bld) 0.200 % 0.0-0.9 [facility] Work Phone: Comment on above: IG% - Immature Granu locytes (promyelocytes, myelocytes and metamyelocytes) > 1% indicates that a LEFT SHIFT is Present. MCH (RBC) [Entitic mass] 30.0 pg 27.0-32.0 [facility] Work Phone: Nucleated RBC/100 WBC (Bld) [Ratio] 0 % 0-5 [facility] Work Phone: MCHC Auto (RBC) [Mass/Vol]on 08-06-2021 MCHC (RBC) [Mass/Vol] 33.4 g/dL 32-36 [facility] Work Phone: No Panel Informationon 08-06 Endomysial IgA Antibody Negative Negative [facility] Work Phone: Estimated GFR (MDRD) Amer 111 mL/min >60 [facility] Work Phone: Comment on above: GFR Calc Estimated GFR (MDRD) Non-Af Amer 92 mL/min >60 [facility] Work Phone: Comment on above: Non- GFR Calc Free Triiodothyronine (T3) pg/dL 2.9 pg/mL 2.18-3.98 [facility] Work Phone: Thyroid Stimulating Hormone (TSH) 0.81 uIU/mL 0.358-3.74 [facility] Work Phone: Platelets bldon 08-06-2021 Platelets (Bld) [#/Vol] 308 10*3/uL 150-450 [facility] Work Phone: Serum IgA measurement (units /volume)on 08-06-2021 IgA Qn (S) 241 mg/dL [facility] Work Phone: Comment on above: Performed at: [address] [id number] Director: Tavo Khan PhD, Phone: [phone] Serum or plasma C reactive p rotein measurement (mass/volume)on 08-06-2021 CRP [Mass/Vol] mg/L 0.0-3.0 [facility] Work Phone: Comment on above: C-Reactive Protein ( CRP) provides useful information for thediagnosis, therapy and monitoring of inflammatory processesand associated diseases. For the evaluation of Relative Riskfor Cardiovascular Disease, a High Sensitivity CRP (HSCRP)should be ordered. Serum or plasma albumin mariajose urement (mass/volume)on 08-06-2021 Albumin [Mass/Vol] 3.8 g/dL 3.2-5.0 [facility] Work Phone: Serum or plasma albumin/glob ulin mass ratioon 08-06-2021 Albumin/Globulin [Mass ratio] 1.0 {ratio} 0.9-2.4 [facility] Work Phone: Serum or plasma calcium mariajose urement (mass/volume)on 08-06-2021 Calcium [Mass/Vol] 9.0 mg/dL 8.5-10.1 [facility] Work Phone: Serum or plasma cortisol hanane surement (mass/volume)on 08-06-2021 Cortisol [Mass/Vol] 6.40 ug/dL 3.44-22.45 [facility] Work Phone: Comment on above: Adult (AM) 5.27 - 22 .45 ug/dL Adult (PM) 3.44 - 16.76 ug/dLPlease note revised CORTISOL reference range effective 2019. Serum or plasma creatinine m easurement (mass/volume)on 08-06-2021 Creatinine [Mass/Vol] 0.72 mg/dL 0.55-1.02 [facility] Work Phone: Comment on above: The validity of the calculated GFR & GFRAA in patients over 70 years has not been determined. Clinical correlation is essential. Serum or plasma urea nitroge n measurement (mass/volume)on 08-06-2021 Urea nitrogen [Mass/Vol] 22 mg/dL 7-18 [facility] Work Phone: Serum tissue transglutaminas e IgA antibody assay (units/volume)on 08-06-2021 tTG IgA Qn (S) <2 U/mL [facility] Work Phone: Comment on above: Negative 0 - 3 Weak Positive 4 - 10 Positive >10 Tissue Transglutaminase (tTG) has been identified as the endomysial antigen. Studies have demonstr- ated that endomysial IgA antibodies have over 99% specificity for gluten sensitive enteropathy. Thin prep Papanicolaou smear with manual screeningon 08-06-2021 Thin prep Papanicolaou smear with manual screening 36 U/L 15-37 [facility] Work Phone: Thin prep Papanicolaou smear with manual screening 3 5-15 [facility] Work Phone: Thin prep Papanicolaou smear with manual screening 201 U/L 84-246 [facility] Work Phone: Vital Signs Date Time Vital Sign Value Performing Clinician [place] jerod 08-22-2024 14:53-0400 Body height 165.[address] Diandra Zeng MD Work Phone: [facility] 10-07-2023 12:57-0400 Body mass index (BMI) [Ratio] 32.69 kg/m2 Jorge Fernandez MD Work Phone: [facility] 10-07-2023 12:57-0400 Body temperature 97.7 [degF] Jorge Fernandez MD Work Phone: [facility] 10-07-2023 12:57-0400 Body weight 89 kg Jorge Fernandez MD Work Phone: [facility] 10-07-2023 12:57-0400 Diastolic blood pressure 93 mm[Hg] Jorge Fernandez MD Work Phone: [facility] 10-07-2023 12:57-0400 Heart rate 70 /min Jorge Fernandez MD Work Phone: [facility] 10-07-2023 12:57-0400 Respiratory rate 20 /min Jorge Fernandez MD Work Phone: [facility] 10-07-2023 12:57-0400 SaO2% (BldA) [Mass fraction] 100 % Jorge Fernandez MD Work Phone: [facility] 10-07-2023 12:57-0400 Systolic blood pressure 150 mm[Hg] Jorge Fernandez MD Work Phone: [facility] 07-04-2022 14:10-0400 Body height 165.[address] Diandra Zeng Work Phone: [facility] 07-04-2022 13:58-0400 Body mass index (BMI) [Ratio] 30.9 kg/m2 Dr. Diandra Zeng Work Phone: [facility] 07-04-2022 13:58-0400 Body weight 84.[address] Diandra Zeng Work Phone: [facility] 07-04-2022 13:58-0400 Diastolic blood pressure 84 mm[Hg] Dr. Diandra Zeng Work Phone: [facility] 07-04-2022 13:58-0400 Systolic blood pressure 128 mm[Hg] Dr. Diandra Zeng Work Phone: [facility] Encounters Encounter Date Encounter Type Care Provider Facility [facility]: [facility] Start: 09-27-2024 End: 09-27-2024 [facility] Start: 09-27-2024 End: 09-27-[address] Carlyn Taylor MD -Physical Therapy Work Phone: Start: 08-22-2024 End: 08-22-[address] Parveen Hernández MD -[facility] Start: 08-22-2024 End: 08-22-[address] Diandra Zeng MD Work Phone: [facility] Work Phone: Start: 05-31-2024 End: 05-31-2024 Patient encounter procedure Charlie Juarez [facility] G[facility] Work Phone: Start: 05-31-2024 End: 05-31-2024 ambulatory Diandra Zeng Facility:[facility] Start: 10-18-2023 Telephone encounter Arleen Nye Work Phone: Podiatry Comment on above: Results Start: 10-13-2023 End: 10-13-2023 Subsequent hospital visit by physician Xr [facility] Edon Ramo Work Phone: Radiology Comment on above: Puncture wound of le ft foot, initial encounter [S91.332A] Start: 10-13-2023 End: 10-13-2023 ambulatory ARLEEN FRAZIER Facility:[facility] Start: 10-13-2023 End: 10-13-2023 Patient encounter procedure Arleen Frazier Work Phone: Podiatry Comment on above: Puncture wound of le ft foot, initial encounter (Primary Dx) Start: 10-07-2023 End: 10-07-2023 ambulatory CHAYO PEREIRA Facility:[facility] Start: 10-07-2023 End: 10-07-2023 Office outpatient new 30 minutes Jorge Fernandez MD Work Phone: [facility] Comment on above: Puncture wound of le ft foot, initial encounter (Primary Dx) Start: 08-16-2022 End: 08-16-[address] Diandra Zeng Work Phone: [facility] Work Phone: Start: 08-16-2022 End: 08-16-[address] Diandra Zeng Work Phone: [facility]Outpatient Breast Imaging Start: 07-04-2022 End: 07-04-[address] Diandra Zeng Work Phone: [facility] Work Phone: Start: 07-04-2022 End: 07-04-[address] Diandra Zeng Work Phone: [facility]-Laboratory, Specimen Start: 07-04-2022 End: 07-04-[address] Diandra Zeng Work Phone: [facility] Start: 03-25-2022 End: 03-25-[address] Diandra Zeng Work Phone: [facility] Gastroenterology Start: 08-12-2021 End: 08-12-[address] Chayo Pereira Work Phone: [facility]Out[facility] Start: 08-06-2021 End: 08-06-[address] Chayo Pereira Work Phone: [facility]-Laboratory Start: 08-06-2021 End: 08-06-[address] Chayo Pereira Work Phone: [facility] Gastroenterology Start: 04-23-2021 End: 04-23-[address] Chayo Pereira Work Phone: [facility]-Laboratory, Specimen Procedures Date Procedure Procedure Detail Performing Clinician Start: 08-16-2022 Screening mammography Fallon Zeng Work Phone: Start: 08-12-2021 Screening mammography D pamela Pereira Work Phone: Plan of Treatment Date Care Activity Detail Author Start: 10-06-2033 Urine microalbumin profile DTaP,Tdap,Td Vaccine (2 - Td or Tdap) [facility] Start: 08-22-2024 X-ray of cervical spine Cerv S pine [address] [facility] Start: 11-05-2023 Influenza vaccination Influenza Vacc ine (#1) [facility] Start: 11-04-2022 Covid-19 Vaccine ( season) Covid-19 Vaccine () [facility] Start: 07-04-2022 Liquid based cervica l cytology screening [facility] Start: 11-16-2019 Diabetes Screening Diabetes Screenin g [facility] Start: 11-16-2019 Lipid panel Lipid Screening [facility] Start: 11-16-2019 Screening for malign ant neoplasm of colon [facility] Start: 2014 Screening for malign ant neoplasm of breast Mammogram Screening [facility] Start: 11-16-1995 Screening for malign ant neoplasm of cervix Cervical Cancer Screening [facility] Start: 1993 Hepatitis B Vaccine (1 of 3 - 19+ 3-dose series) Hepatitis B Vaccine (1 of 3 - 19+ 3-dose series) [facility] Start: 1992 Anxiety Screening Anxiety Screening [facility] Start: 1992 Depression Screening Depression Scre ening [facility] Start: 1992 Hepatitis C screening Hepatitis C Sc reening [facility] Start: 1992 HIV screening HIV Screening [facility] MG Breast - bilatera l Screening [facility] Path report.final Dx Spec [facility] End: 11-11-2024 XR Foot - left AP and Lateral and oblique XR FOOT GENERAL 3V AP/LAT/OBL LEFT Radiology Routine Puncture wound of left foot, initial encounter 1 Occurrences starting 10/13/2023 until 11/11/2024 [facility] Work Phone: Comment on above: 1 Occurrences starti ng 10/13/2023 until 11/11/2024 XR Foot - left AP an d Lateral and oblique XR FOOT GENERAL 3V AP/LAT/OBL LEFT Radiology Routine Puncture wound of left foot, initial encounter 10/13/2023 12:01 PM EDT [facility] Immunizations Immunization Date Immunization Notes Care Provider Fa cility 10-07-2023 tetanus toxoid, redu mirian diphtheria toxoid, and acellular pertussis vaccine, adsorbed Jorge Fernandez MD Work Phone: [facility] Payers Date Payer Category Payer Self-pay [id number] 2024 Unknown [id number] 2020 Unknown [id number] 2020 Unknown [id number] Unknown [id number] Unknown [employer] [id number] Unknown [id number] [id number] Unknown [id number] Unknown [id number] Unknown [id number] [id number] Social History Date Type Detail Facility Start: 08-06-2021 End: 07-04-2022 Tobacco smoking status NHIS Unknown if ever smoked [facility] Start: 1975 Sex Assigned At Female [facility] Start: 10-07-2023 [facility] Ex-smoker [facility] History of tobacco use Current smoker [facility] Start: 10-07-2023 Tobacco use and exposure Smokeless tobacco non-user [facility] Start: 10-07-2023 End: 10-13-2023 History of Social function [facility] Start: 10-07-2023 End: 10-13-[address] [facility] National Score (1-100), lower number is lower risk Not on file [facility] Start: 1975 Sex Assigned At Not on file [facility] Start: 10-13-2023 Alcohol intake Lifetime non-d jay (finding) [facility] Start: 08-22-2024 [facility] (finding) [facility] Clinical Notes 07-04-2022 to 12-10-2024 Note Date & Type Note Facility 12-10-2024 Discharge summary Note Date/Time December 10, 2024 11:42am [facility] Physical Therapy [facility] [address] [place] [address] / REHABILITATION SERVICES DISCHARGE SUMMARY MR#: [id number] Acct: [id number] Name: AMAURY MICHAELS Rep #: [id number] : 1975 49 From: Taz Batres PT, ATC Referring Dr.: Dr. Carlyn Taylor MD Status: REG RCR Insurance: [facility] [id number] SELF PAY INSURANCE Patient Information Patient Information: AMAURY MIHCAELS was seen in my office for initial [...] 1142 CC: Dr. Carlyn Taylor MD ~ [facility] Signed [facility] Work Phone: 1(604) 951-649410-07-[address] [facility] Physical Therapy [facility] [address] [place] [address] / REHABILITATION SERVICES DISCHARGE SUMMARY MR#: [id number] Acct: [id number] Name: AMAURY MICHAELS Rep #: [id number] : 1975 49 From: Taz Batres PT, ATC Referring Dr.: Dr. Carlyn Taylor MD Status: REG R Insurance: [facility] [id number] SELF PAY INSURANCE Patient Information Patient Information: [...] 1142 CC: Dr. Carlyn Taylor MD ~ [facility] Signed [facility]03-28-2025 Evaluation note* Diagnosis Onset Date Resolution Status Admit Date Abdominal pain resolved May 10:20am [facility] Services Work Phone: [phone] Telephone encounter Note* Telephone Encounter - Guadalupe Castañeda LPN - 10/18/2023 4:38 PM EDT Patient notified of results and provider's instructions. Patient verbalizes understanding. Guadalupe Castañeda LPN [facility]08-14-2024 Miscellaneous Notes* Telephone Encounter - Guadalupe Castañeda [...] tolerated Arleen Frazier DPM documented in this encounterOhiohealth08-14-2024 Telephone encounter Note * Telephone Encounter - Arleen Frazier - 10/18/2023 12:48 PM EDT Please call patient to inform her that xrays do not show any acute fracture or apparent foreign body If she is doing well, continue with activity as tolerated Arleen Frazier DPM [facility] Work Phone: [phone]) 701-936608-09-2024 History of Present illness Narrative* Monica Diaz, [...] PATIENT PRESENTS WITH AN IMPLANTABLE OR ATTACHED PRECISION HONER: No RADIOLOGY DEPARTMENT: General X-ray: Exam(s) Completed: Lower Extremity X- Ray(s): Foot, Left and Wt. Bearing PERIPHERAL IV DATA: Not applicable SIGNED BY: RT Tawanna([place]) October 13, 2023 1:43 PM documented in this encounterOhiohealth08-09-2024 NoteHNO ID: [id number] Author: MONICA DIAZ RT(R) Service: ? Author [...] PATIENT PRESENTS WITH AN IMPLANTABLE OR ATTACHED PRECISION HONER: No RADIOLOGY DEPARTMENT: General X-ray: Exam(s) Completed: Lower Extremity X-Ray(s): Foot, Left and Wt. Bearing PERIPHERAL IV DATA: Not applicable SIGNED BY: RT Tawanna([place]) October 13, 2023 1:43 [facility] [place]08-09-2024 NoteHNO ID: [id number] Author: ARLEEN FRAZIER, ? Service: ? Author [...] AND/OR THERAPEUTIC Comment: DANDC with polyp excision [facility] 2010 and [facility] 2018 FAMILY HISTORY Problem Relation Age [...] dispensed Arleen Frazier DPM Podiatry [address] [facility] [address] Dept: [phone] [facility] History of Present illness Narrative* Arleen Frazier [...] AND/OR THERAPEUTIC Comment: D&C with polyp excision [facility] 2010 and [facility] 2018 FAMILY HISTORY Problem Relation Age [...] dispensed Arleen Frazier DPM Podiatry [address] [facility] [address] Dept: [phone] Dept * Guadalupe Castañeda LPN - 10/13/2023 11:17 AM EDT [facility] ROOMING INTAKE FLOWSHEET DATA Pain Pain Level: 1 Pain Location: Foot-Left Description: Sore Duration Amount of Time: 1 Duration Units: Weeks Frequency: Intermittent Intervention/Comfort measure: Relaxation, Reposition, Medication Patient presents with: Left Foot - New, Puncture Wound, Pain, Swelling Guadalupe Castañeda LPN documented in this encounterOhiohealth08-09-2024 NoteHNO ID: [id number] Author: GUADALUPE CASTAÑEDA LPN Service: ? Author Type: LICENSED NURSE Type: Progress Notes Filed: 10/13/2023 12:45 Note Text: AMB ROOMING INTAKE FLOWSHEET DATA Pain Pain Level: 1 Pain Location: Foot-Left Description: Sore Duration Amount of Time: 1 Duration Units: Weeks Frequency: Intermittent Intervention/Comfort measure: Relaxation, Reposition, Medication Patient presents with: Left Foot - New, Puncture Wound, Pain, Swelling Guadalupe Castañeda, [facility]08-03-2024 NoteHNO ID: [id number] Author: JORGE FERNANDEZ MD Service: ? Author [...] swelling, purulent drainage, or fever/malaise. Jorge Fernandez, [facility]08-03-2024 History of Present illness Narrative* Jorge [...] orfever/malaise. Jorge Fernandez MD documented in this encounterOhiohealth05-01-2023 NotePap Smear Specimen AdequacyMay 2022 5:09pmComment.Satisfactory for evaluation. Endocervical and/or squamous metaplasticcells (endocervical component)are present.[facility] INTERFACED A#[id number] Marion General HospitalComment on above:Satisfactory for evaluation. Endocervical and/or squamous metaplasticcells (endocervical component)are present.Evaluation note* Diagnosis Onset Date Resolution Status Abdominal pain acute [facility] Work Phone: Evaluation note* Diagnosis Onset Date Resolution Status Abdominal pain acute Climacteric acute Encounter for routine gynecological examination noneactive [facility] Work Phone: Evaluation note* Diagnosis Onset Date Resolution Status Climacteric acute Encounter for routine gynecological examination noneactive [facility] Work Phone: Evaluation note* Diagnosis Puncture wound of left foot, initial encounter- Primary documented in this encounter [facility] note* Diagnosis Puncture wound of left foot, initial encounter- Primary documented in this encounter [facility] note* Diagnosis Puncture wound of left foot, initial encounter documented in this encounter [facility] noteNo assessment information availableWOhioHealth [facility] General Hospital Work Phone: Reason for referral (narrative)* Diagnostic Procedure Only (Routine) - Closed Specialty Diagnoses / Procedures Referred By Jackie granda Referred To Contact XR IMAGING Diagnoses Puncture wound of left foot, initial encounter Procedures XR FOOT GENERAL 3V AP/LAT/OBL LEFT RADEX FOOT COMPLETE MINIMUM 3 VIEWS Arleen Frazier [address] [place] [address] [place] [address] Referral ID Status Reason Start Date Expiration Date V isits Requested Visits Authorized [id number] Closed Auto-Generate d Referral 10/13/2023 11/11/2024 1 1 [facility] for referral (narrative)No reason for referral information availableGarden [facility] Work Phone: Reason for visit Narrative* Diagnostic Procedure Only (Routine) - Closed Specialty Diagnoses / Procedures Referred By Jackie granda Referred To Contact XR IMAGING Diagnoses Puncture wound of left foot, initial encounter Procedures XR FOOT GENERAL 3V AP/LAT/OBL LEFT RADEX FOOT COMPLETE MINIMUM [address] [place] [address] [place] [address] Referral ID Status Reason Start Date Expiration Date V isits Requested Visits Authorized [id number] Closed Auto-Generate d Referral 10/13/2023 11/11/2024 1 1 [facility] Chief Complaint and Reason for Visit Chief Complaint irritable bowel? 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 Diandra Zeng MD Primary Care Provider Active Brandy Duarte DELIVERY TRUCK DRIVER, DELIVERY TRUCK DRIVER-C Attending Provider Active Package Drier Relationship Specialty Start Date End Date Chayo Pereria DO [address] [place] [address] PCP - General Family Medicine 06/14/18 Package Drier Relationship Specialty Start Date End Date Chayo Pereira DO [address] [place] [address] PCP - General Family Medicine 06/14/18 Package Drier Relationship Specialty Start Date End Date Chayo Pereira DO [address] [place] [address] PCP - General Family Medicine 06/14/18 Package Drier Relationship Specialty Start Date End Date Chayo Pereira DO [address] [place] [address] PCP - General Family Medicine 06/14/18 Team [...] or prosecute any alcohol or drug abuse patient.[facility]healthIn the event this information is protected by the Federal Confidentiality of Alcohol and Drug Abuse Patient Records regulations: The Federal rules restrict any use of the information to criminally investigate or prosecute any alcohol or drug abuse patient.[facility]healthIn the event this information is protected by the Federal Confidentiality of Alcohol and Drug Abuse Patient Records regulations: The Federal rules restrict any use of the information to criminally investigate or prosecute any alcohol or drug abuse patient.[facility]healthIn the event this information is protected by the Federal Confidentiality of Alcohol and Drug Abuse Patient Records regulations: The Federal rules restrict any use of the information to criminally investigate or prosecute any alcohol or drug abuse patient.[facility] Reason for Visit (unrecogniz ed section and content) Reason Comments Trauma Stepped on 2 inch Ru sty nail, stepped about an inch onto it, states she has pain in her Left foot Reason Comments New Puncture Wound Pain Swelling Reason Comments Results INFORMATION SOURCE (unrecogn ized section and content) DATE CREATED AUTHOR 10/19/2023 [facility] DATE CREATED AUTHOR AUTHOR'S RIGO SEXTON 12/15/2024 [facility] FOR RECORDS PERTAINING TO PATIENTS WHO ARE [...] BE BASED ON THE PRIMARY CLINICAL RECORDS. [employer] [facility]. provides no warranty or guarantee of the accuracy or completeness of information in this document.
[2025-02-13 18:25] LABS: Troponin T High Sens 2 HR < 6 ng/L (<=14)
[2025-02-13 20:33] LABS: Troponin T High Sens 4 HR < 6 ng/L (<=14)
[2025-02-14 04:18] VITALS: BP 133/70; PULSE 70; RESP 18; TEMP 36; O2SAT 99
[2025-02-14 05:14] LABS: Hematocrit 39.3 % (37-47); Hemoglobin 13.4 g/dL (12.0-15.0); Immature Granulocytes Count 0.020 X10^3/uL (0.0-0.0); Mean Corp Hgb Conc 34.1 g/dL (32-36); Mean Corpuscular Volume 87.1 fL (81-99); Mean Platelet Vol. 10.2 fl (6.2-12.0); NRBC Flagged by Analyzer 0 % (0-5); Platelet Count 308 K/mm3 (150-450); RBC Distribution Width CV 13.5 % (11.6-14.6); RBC Distribution Width SD 42.7 fl (35.1-43.9); Red Blood Count 4.51 M/mm3 (4.2-5.4); White Blood Count 7.3 K/mm3 (4.4-11.0)
[2025-02-14 05:44] VITALS: BMI 34.9
[2025-02-14 05:55] LABS: AST(SGOT) 21 U/L (<=31); Alanine Aminotransfer ALT/SGPT 27 U/L (<=34); Albumin, Serum 4.1 g/dL (3.5-5.0); Alkaline Phosphatase 88 U/L (35-104); Anion Gap 11 (5-15); BUN 15 mg/dL (4-19); BUN/Creat Ratio 27.1 RATIO (10-20); Calcium,Total 9.5 mg/dL (7.6-11.0); Carbon Dioxide 28.0 mmol/L (21.0-32.0); Chloride 100 mmol/L (98-108); Cholesterol 217 mg/dL (<=200); Estimated Creatinine Clearance 130.37 ml/min (50-250); Globulin 3.0 g/dL (2.2-4.2); Glucose 93 mg/dL (70-99); Low Density Lipoprotein Calc. 115 mg/dL; Magnesium 2.3 mg/dL (1.5-2.2); Potassium 3.4 mmol/L (3.3-5.1); Triglycerides 47 mg/dL; Very Low Density Lipoprotein 9 mg/dL (5-40); cholesterol:hdl ratio screen 2.32
[2025-02-14 07:16] LABS: Barbiturate Urine NEGATIVE (< 200 ng/mL); Benzodiazepine Urine NEGATIVE (< 200 ng/mL); PCP Urine NEGATIVE (< 25 ng/mL); THC Urine NEGATIVE (< 50 ng/mL)
[2025-02-14 08:26] VITALS: BP 123/73; PULSE 68; RESP 14; TEMP 36.7; O2SAT 96
--- NOTE | 2025-02-14 11:04 | CASEMGMT ---
Social Work Per imaging pt negative for stroke, therefore PHQ9 not completed. MIGUEL García
--- NOTE | 2025-02-14 11:53 | NEURO.CONS ---
Assessment and Plan: Neuro Assessment/Plan AMAURY FLETCHER is a 49 F with a past medical history of HTN, migraines, heart palpitations, and DDD cervical spine, being evaluated by Teleneurology for R head numbness for several days in setting of dental infection. MRI Brain is normal and exam with numbness along the R face in V1-3 distribution. She also has had a headache during this. Symptoms concerning for headache related numbness - possibly complex migraine or numbness from referred pain from the dental issue. At this time, low clinical suspicion for stroke. I personally attended this patient and spent a total time of 45minutes evaluating this patient including clinical assessment, review of chart, medical history imaging, and determining appropriate treatment and workup. HPI Consult Data Date of Consult: 02/15/25 HPI Narrative HPI Narrative: AMAURY FLETCHER, is a 49 F w pmhx HTN, migraines, heart palpitations, and DDD cervical spine who presents to the ER with vision changes today. At about 1100 today she was using her computer she noticed the right half of her vision in both eyes became blurry. She could not quite see the words correctly. She then developed tingling in the right side of her face, right side of the tongue, the right side of her throat, the right side of her neck, right arm, and right leg. She has no associated weakness. She does have a posterior headache at the base of her skull. She came to the hospital and a stroke alert was called. She has also had some dizziness today. She has no chest pain or pressure. She had a CT brain and CTA head and neck which were negative. Neurology was consulted and the decision was made not to give TNK. She also had markedly elevated BP at arrival but this improved on its own. She is currently resting comfortably in bed NAD with ongoing right sided vision loss and right sided numbness, posterior headache, and nausea without vomiting. This is complicating by this week she has been dealing with an infected right lower tooth infection for which she has been taking prednisone and amoxicillin, and for which she was supposed to have a root canal tomorrow. She had been already having right lower jaw numbness associated with that. Neurologic History Prior to had dental work and got infected. 2 days ago had numbness along the R side of her lower lip and the infection were worse and she needed a root canal. The numbness started becoming more pronounced on the R face and her head since yesterday. Has had a low grade CHUA for the last 4 days. Started having difficulty when reading - As she would have difficulty reading on the R eye with difficulty to the R side. Would last for several hrs. The numbness currently is on the R side of her entire head down the back of her scalp and into the neck as well including her entire face. No diplopia. She has had numbness and tingling before and the base of her skull feels really hot with her normal headache and her senses seem slightly buffered and will sometimes have tunnel vision with the headaches and will get numbness down the R arm with the numbness. She has baseline numbness and tingling on the R arm which is improving with PT but that tingling got worse since yesterday. Exam -? General: Laying comfortably in bed; in no acute distress. -? HENT: Normal oropharynx and mucosa. Normal external appearance of ears and nose. Exophthalmos. -? Neck: Supple, no pain or tenderness -? CV:? No peripheral edema. -? Pulmonary:? Normal respiratory effort. -? Ext: No cyanosis, edema, or deformity -? Skin: No rash. Normal palpation of skin.? -? Musculoskeletal: full range of motion; no joint tenderness. Normal digits and nails by inspection. No clubbing. -? NEURO: -? Mental Status: The patient was alert and oriented to time, place, and person. Normal recent/remote memory, concentration, and general fund of knowledge. -? Language: speech is clear.? Naming, repetition, fluency, and comprehension intact. -? Cranial Nerves: PERRL 3mm/brisk. EOMI, visual tapia full, no facial asymmetry, facial sensation fiminished on the R V1-3 with midline splitting, hearing intact, tongue midline, no evidence of atrophy or fibrillations. -? Motor: normal bulk, tone, and strength throughout. No pronator drift or satelliting. Upper and lower extremities equal bilaterally. 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 Tone: is normal and bulk is normal -? Sensation- diminished on the RUE, intact to LT on the LE b/l -? Coordination: No dysmetria on [id number], finger follow finger or [id number]. -? Gait- Gait initiation was normal. Narrow base with good heel strike and stride length was observed during ambulation. Turns were in stride. Patient was able to walk normally in tandem. Romberg was normal. 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 Insomnia Hypertension Home Medications ?Medication ?Instructions ?Recorded ?Last Taken ?Type loratadine 10 mg tablet (Allergy 10 mg PO DAILY 11/29/16 Unknown History Relief (loratadine)) melatonin ER 10 mg-pyridoxine HCl 1 ea PO QHS PRN sleep 11/29/16 Unknown History (B6) 10 mg tab, immed-extend release multivitamin 1 tab PO DAILY 10/06/21 Unknown History diazepam 2 mg tablet (Valium) 2 mg PO TID PRN dizziness 02/13/25 Unknown History hydrocodone-acetaminophen 5-325mg 2 tab PO Q6H 7 days #40 tabs 02/14/25 Unknown Rx 5mg-325mg Allergy/AdvReac Type Severity Reaction Status Date / Time milk (dairy) Allergy Intermediate NEEDS Verified 02/13/25 13:51 FOLLOW-UP wheat Allergy Intermediate UNK Verified 02/13/25 13:51 horse dander Allergy Hives Verified 02/13/25 13:51 Horse/Equine Containing Allergy Hives Verified 02/13/25 13:51 Products aspirin AdvReac NOSEBLEEDS Verified 02/13/25 13:51 Family History Mother High cholesterol Sister Pulmonary embolism IBS (irritable bowel syndrome) Thrombophilia associated with 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 Surgical History S/P colonoscopy S/P D&C (status post dilation and curettage) H/O cervical polypectomy H/O section Social History household members: spouse and children housing: house number of children: 3 current occupational status: employed current occupation: [employer] Smoking Status: Never smoker alcohol intake: never substance use type: does not use seatbelt use: always do you feel safe at home: Yes 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 Vital Signs Vital Signs Vital Signs: 02/13/25 13:50 02/13/25 13:52 02/13/25 13:58 Temperature 97.8 F Temperature Source Temporal Pulse Rate 105 H 107 H Respiratory Rate 18 18 Respiratory Effort Respiratory Depth Respiratory Pattern Blood Pressure 207/104 H 190/108 H Blood Pressure Mean 138 135 Blood Pressure Source Blood Pressure Position Blood Pressure Location Pulse Ox 100 100 Oxygen Delivery Method Room Air Room Air Room Air Oxygen Flow Rate (L/min) 02/13/25 14:34 02/13/25 15:00 02/13/25 15:09 Temperature Temperature Source Pulse Rate 87 80 82 Respiratory Rate 18 12 14 Respiratory Effort Respiratory Depth Respiratory Pattern Blood Pressure 151/79 H 144/86 H 144/86 H Blood Pressure Mean 103 105 105 Blood Pressure Source Blood Pressure Position Blood Pressure Location Pulse Ox 100 98 100 Oxygen Delivery Method Non-Rebreather Nasal Cannula Oxygen Flow Rate (L/min) 15 8 02/13/25 15:26 02/13/25 16:05 02/13/25 16:38 Temperature 97.8 F 96.8 F L Temperature Source Temporal Pulse Rate 86 77 Respiratory Rate 18 15 Respiratory Effort Normal Non-Labored Respiratory Depth Normal Respiratory Pattern Normal Blood Pressure 138/90 H 154/85 H Blood Pressure Mean 106 108 Blood Pressure Source Monitor Blood Pressure Position Semi-Fowlers Blood Pressure Location Right Arm Pulse Ox 100 99 Oxygen Delivery Method Room Air Room Air Oxygen Flow Rate (L/min) 02/13/25 21:27 02/13/25 22:00 02/13/25 22:00 Temperature 97.7 F L Temperature Source Temporal Pulse Rate 77 Respiratory Rate 18 Respiratory Effort Normal Non-Labored Respiratory Depth Normal Respiratory Pattern Normal Blood Pressure 102/61 Blood Pressure Mean 74 Blood Pressure Source Monitor Blood Pressure Position Semi-Fowlers Blood Pressure Location Right Forearm Pulse Ox 99 98 Oxygen Delivery Method Room Air Room Air Room Air Oxygen Flow Rate (L/min) 02/14/25 04:18 02/14/25 06:52 02/14/25 08:26 Temperature 96.8 F L 98.1 F Temperature Source Temporal Oral Pulse Rate 70 68 Respiratory Rate 18 14 Respiratory Effort Respiratory Depth Respiratory Pattern Blood Pressure 133/70 H 123/73 H Blood Pressure Mean 91 89 Blood Pressure Source Monitor Monitor Blood Pressure Position Sitting Semi-Fowlers Blood Pressure Location Right Forearm Right Arm Pulse Ox 99 96 Oxygen Delivery Method Room Air Room Air Room Air Oxygen Flow Rate (L/min) 02/14/25 08:31 Temperature Temperature Source Pulse Rate Respiratory Rate Respiratory Effort Normal Non-Labored Respiratory Depth Respiratory Pattern Blood Pressure Blood Pressure Mean Blood Pressure Source Blood Pressure Position Blood Pressure Location Pulse Ox Oxygen Delivery Method Room Air Oxygen Flow Rate (L/min) Weight Weight: 92.8 kg Body Mass Index (BMI) 34.9 EEG Results Procedure Details EEG Procedure Details: AMAURY FLETCHER is a 49 year old F with a past medical history of , who presents for evaluation of Electroencephalogram on DATE at TIME Lab / Micro Data 02/14/25 03:58 02/14/25 03:58 Labs: Laboratory Results - last 24 hr 02/13/25 13:53: POC Glucose 106 02/13/25 14:05: WBC 12.0 H, RBC 5.05, Hgb 14.8, Hct 44.5, MCV 88.1, MCH 29.3, MCHC 33.3, RDW Std Deviation 43.2, RDW Coeff of Pedrito 13.3, Plt Count 394, MPV 10.3, Immature Gran % (Auto) 0.400, Neut % (Auto) 75.3 H, Lymph % (Auto) 16.2 L, [place] % (Auto) 6.4, Eos % (Auto) 0.9, Baso % (Auto) 0.8, Absolute Neuts (auto) 9.0 H, Absolute Lymphs (auto) 1.94, Nucleated RBC % 0, PT 13.1, INR 1.0, APTT 32.1, Sodium 140, Potassium 3.6, Chloride 99, Carbon Dioxide 25.5, Anion Gap 15, BUN 17, Creatinine 0.68 L, Estim Creat Clear Calc 112.09, Est GFR (MDRD) Non-Af 106, BUN/Creatinine Ratio 24.3 H, Glucose 112 H, Hemoglobin A1c 5.6, Calcium 9.8, Troponin T High Sens < 6 02/13/25 16:45: Troponin T Hi Sens 2 Hr < 6 02/13/25 19:40: Troponin T Hi Sens 4Hr < 6 02/14/25 03:58: WBC 7.3, RBC 4.51, Hgb 13.4, Hct 39.3, MCV 87.1, MCH 29.7, MCHC 34.1, RDW Std Deviation 42.7, RDW Coeff of Pedrito 13.5, Plt Count 308, MPV 10.2, Immature Gran % (Auto) 0.300, Neut % (Auto) 46.0 L, Lymph % (Auto) 36.8, [place] % (Auto) 12.1 H, Eos % (Auto) 4.0, Baso % (Auto) 0.8, Absolute Neuts (auto) 3.4, Absolute Lymphs (auto) 2.70, Nucleated RBC % 0, Sodium 139, Potassium 3.4, Chloride 100, Carbon Dioxide 28.0, Anion Gap 11, BUN 15, Creatinine 0.57 L, Estim Creat Clear Calc 130.37, Est GFR (MDRD) Non-Af 111, BUN/Creatinine Ratio 27.1 H, Glucose 93, Calcium 9.5, Phosphorus 3.8, Magnesium 2.3 H, Total Bilirubin 0.56, AST 21, ALT 27, Alkaline Phosphatase 88, Total Protein 7.0, Albumin 4.1, Globulin 3.0, Albumin/Globulin Ratio 1.4, Triglycerides 47, Cholesterol 217 H, LDL Cholesterol, Calc 115, VLDL Cholesterol 9, HDL Cholesterol 94, Cholesterol/HDL Ratio 2.32 02/14/25 06:35: Urine Opiates Screen NEGATIVE, U Buprenorphine Qual NEGATIVE, Ur Oxycodone Screen NEGATIVE, Urine Methadone Screen NEGATIVE, Urine Fentanyl Screen NEGATIVE, Ur Barbiturates Screen NEGATIVE, Ur Phencyclidine Scrn NEGATIVE, Ur Amphetamines Screen NEGATIVE, U Benzodiazepines Scrn NEGATIVE, Urine Cocaine Screen NEGATIVE, U Cannabinoids Screen NEGATIVE Rhythm Strip Rhythm Strip: Sinus Tach Rate: 105 Ectopy: None Imaging Radiology Impression Brain CT 02/13/25 13:55 IMPRESSION: No acute intracranial abnormality. Stroke Alert: As above The critical findings in the findings and impression above were relayed directly by me by telephone to Alexander Kulkarni on 02/13/2025 at 2:16 pm with readback verification. Reading Location: [facility] Head/Neck CTA 02/13/25 13:58 IMPRESSION: 1. No large vessel occlusion. 2. No aneurysm or stenosis. Reading Location: [facility] Brain MRI 02/13/25 15:14 IMPRESSION: Unremarkable brain MRI. No explanation for patient's symptoms. Reading Location: [facility] Cervical Spine MRI 02/13/25 15:14 IMPRESSION: 1. No findings in the cervical spine to explain patient's symptoms. 2. Mild spondylotic changes without any significant high-grade spinal canal or foraminal narrowing. 3. No cord signal abnormality or impingement. Reading Location: [facility] Active Medications Active Medications Active Medications: Current Medications Generic Name Dose Route Start Last Admin Trade Name Freq PRN Reason Stop Dose Admin Acetaminophen 650 mg 02/13/25 16:14 Acetaminophen 325 Mg Tablet PO Q6H PRN PRN Pain 1-10 Or Fever>100.7 Albuterol Sulfate 2.5 mg 02/13/25 16:14 Albuterol 2.5 Mg/3 Ml Vial.Neb. INHALATION Q2H PRN PRN SOB &/OR WHEEZING Aspirin 81 mg 02/14/25 08:00 02/14/25 08:39 Aspirin 81 Mg Tab.Chew PO 81 mg BREAKFAST GRECIA Administration Atorvastatin Calcium 80 mg 02/13/25 22:00 02/13/25 22:02 Atorvastatin Calcium 80 Mg Tablet PO 80 mg QHS GRECIA Administration Clopidogrel Bisulfate 75 mg 02/14/25 10:00 02/14/25 08:38 Clopidogrel Bisulfate 75 Mg Tablet PO 75 mg DAILY GRECIA Administration Diazepam 2 mg 02/13/25 16:14 Diazepam 2 Mg Tablet PO TID PRN DIZZINESS Enoxaparin Sodium 40 mg 02/14/25 10:00 Enoxaparin 40 Mg/0.4 Ml Syringe SC DAILY GRECIA Hydralazine HCl 5 mg 02/13/25 16:14 Hydralazine 20 Mg/Ml Vial IV 02/14/25 16:14 Q30M PRN maintain BP parameters with HR <60 Sodium Chloride 250 mls @ 15 mls/hr 02/13/25 16:23 IV .[id number] PRN Saline Flush Sodium Chloride 250 mls @ 15 mls/hr 02/13/25 16:23 IV .[id number] PRN Additional IVPB Infusion Ibuprofen 400 mg 02/13/25 16:14 02/13/25 22:09 Ibuprofen 400 Mg Tablet PO 400 mg Q4H PRN PRN Administration Pain 1-10 Or Fever >100.7 Labetalol HCl 10 - 20 mg 02/13/25 16:14 Labetalol 20 Mg/4 Ml Vial IV 02/14/25 16:14 Q10M PRN PRN maintain BP parameters with HR >/=60 Loratadine 10 mg 02/14/25 10:00 02/14/25 08:38 Loratadine 10 Mg Tablet PO 10 mg DAILY GRECIA Administration Melatonin 10 mg 02/13/25 16:14 Melatonin 10 Mg Tablet PO QHS PRN PRN INSOMNIA Ondansetron HCl 4 mg 02/13/25 16:14 Ondansetron 4 Mg/2 Ml Vial IV Q8H PRN PRN NAUSEA/VOMITING Oxycodone HCl 5 mg 02/13/25 16:22 Oxycodone 5 Mg Tablet PO Q8H PRN Pain Score 1-10 Senna/Docusate Sodium 2 tablet 02/13/25 16:14 Senna/Docusate Sodium 1 Tablet PO BID PRN PRN Constipation Sodium Chloride 10 - 40 ml 02/13/25 16:23 0.9% Saline Lock 10 Ml Syringe IV UD PRN SALINE FLUSH NIHSS NIHSS Nursing Documentation NIHSS Nursing Documentation: NIHSS: Ischemic Stroke/TIA Start: 02/13/25 16:14 Text: For PCU Patients: NIH and Neuro Check every 4 Status: Complete hours, PRN and with change in RN caregiver. Freq: [id number] Protocol: Activity Type Activity Date Activity User E-sign Co-sign Detail Recorded Client Recorded Date Recorded By Document 02/13/25 16:05 ML [id number] 02/13/25 16:33 ML 02/13/25 16:05 NIH Stroke Scale [NIHSS] A score of 0 is normal or asymptomatic . Total possible score is 42. Inpatient: RN or Physician to activate a stroke alert for onset of new stroke symptoms or with NIHSS increase >/= 3 points. Following change in neurological status, NIHSS will be performed per physician order or more frequently PRN. -1a. Level of Consciousness 0 - Alert; keenly responsive -1b. LOC Questions 0 - Answers BOTH questions correctly -1c. LOC Commands 0 - Performs BOTH tasks correctly -2. Best Gaze 0 - Normal -3. Visual 1 - Partial hemianopia -4. Facial Palsy 0 - Normal symmetrical movements -5a. Left Arm 0 - No drift; arm holds 90 ( or 45) degrees for full 10 seconds -5b. Right Arm 0 - No drift; arm holds 90 ( or 45) degrees for full 10 seconds -6a. Left Leg 0 - No drift; leg holds 30- degree position for full 5 seconds -6b. Right Leg 0 - No drift; leg holds 30- degree position for full 5 seconds -8. Sensory 1 - Mild-to- moderate sensory loss; -9. Best Language 0 - No aphasia; normal -10. Dysarthria 0 - Normal -11. Extinction and Inattention 0 - No abnormality -Total 2 Query Text:A score of 0 is normal or asymptomatic. Total possible score is 42 . ED: Notify Physician for NIHSS increase by > / = 3 points. Inpatient: RN or Physician to activate a stroke alert for NIHSS increase of > / = 3 points. Coma Scale [Assess] -Eye Opening Spontaneous -Motor Obeys Commands -Verbal Oriented [Total] -Coma Scale Total 15
--- NOTE | 2025-02-14 14:37 | DCINST_ITS ---
Discharge Instructions DC O2, CPAP, BIPAP needs Home O2 Discharge instructions: No Dressing / Incision Discharge Activity: Return to Normal Activity Weight Bearing Status: Full weight bearing Follow Up Care Test Results: Test results from this visit will be discussed in further detail at your follow- up appointment, if applicable. Discharge Plan Admission Admit Date/Time: 02/13/25 15:06 Primary Reason for Your Visit: complex migrane Attending Provider: Rickie Cervantes Primary Care Provider: Carlyn Taylor Consulting Providers: Ramírez Mitchell; Rodrigo Rodriguez; Jennifer Ramsey; Abbi Wallace; Silvia Curiel; Manoj Anthony; Ninfa Lorenzo; Jaren Diez; Maximiliano Ornelas; Scooter Lui; Ling Ashraf; Latoya Khan; Eugenio Miranda; Charmaine Rizo; Yvon Negron; Rory Estrada; Mejia Arce; Liz Sanchez; Quentin Orozco; Patricia Shafer; Lita Cuevas; Shantell Shafer Discharge Orders/Prescriptions Prescriptions: New hydrocodone-acetaminophen 5-325 mg tablet 2 tab PO Q6H 7 Days Qty: 40 0RF Rx Instructions: 1 or 2 every 6 hours as needed for dental pain Continued loratadine [Allergy Relief (loratadine)] 10 MG tablet 10 mg PO DAILY melatonin-pyridoxine HCl (B6) 1 EACH tablet, IR and ER, biphasic 1 ea PO QHS PRN (Reason: sleep) multivitamin Tablet 1 tab PO DAILY diazepam [Valium] 2 mg tablet 2 mg PO TID PRN (Reason: dizziness) Discontinued oxycodone-acetaminophen [Percocet] 5-325 mg tablet 1 tab PO Q8H PRN (Reason: pain) 4 Days Qty: 10 0RF Referrals / Follow Up: Carlyn Taylor MD [Primary Care Provider, Internal Medicine] - Within 1 Month Disposition Disposition (needs filled in before D/C Order can be placed): Home, Self Care
[2025-02-14 14:41] VITALS: BMI 34.9
--- NOTE | 2025-02-14 14:41 | PCM.DC.SUM ---
Providers Date of Admission: 02/13/25 Date of Discharge: 02/14/25 Primary Care Physician: Dr. Carlyn Taylor MD Consultations 02/13/25 16:14 Consult: Tele-Neurology Routine Consulting Provider: [facility] Reason for Consult: Acute Ischemic Stroke/TIA EMERGENT Consult: No MD Notified: Yes Date Notified: 02/13/25 Time Notified: 15:07 Method of Notification: ED Physician Initiated Nursing Unit Staff Notify [facility] of Tele-Neurology Consult: Yes Reason For Visit: STROKE R/O Diagnosis Discharge Diagnosis (1) Accelerated hypertension: Status: Acute Code(s): I10 - Essential (primary) hypertension (2) Paresthesias: Status: Acute Code(s): R20.2 - Paresthesia of skin Plan 1 complex migraine #2 essential hypertension #3 right lower dental abscess Medications at Discharge Home Medications loratadine 10 mg tablet (Allergy Relief (loratadine)) 10 mg PO DAILY 11/29/16 melatonin ER 10 mg-pyridoxine HCl (B6) 10 mg tab, immed-extend release 1 ea PO QHS PRN sleep 11/29/16 multivitamin 1 tab PO DAILY 10/06/21 diazepam 2 mg tablet (Valium) 2 mg PO TID PRN dizziness 02/13/25 hydrocodone-acetaminophen 5-325mg 5mg-325mg 2 tab PO Q6H 7 days #40 tabs 02/14/25 Hospital Course Operations None Procedures 2-D Echocardiogram Summary of Care Provided Minutes Spent on Discharge: 30 Hospital Course: This 49-year-old white female was seen in the emergency room at [facility] complaining of sudden onset of right visual field loss while she was sitting at a computer. The day before she was having paresthesias throughout the right side of her face. Stroke alert was called, CTA of the head and neck did not reveal any occlusive disease or thrombus, MRI of the brain was unremarkable. Patient was placed in observation status on PCU and seen in consultation by teleneurology who felt that the patient's symptoms Red likely due to a complex migraine. Echocardiogram was unremarkable. On 02/14/2025, patient was seen and examined: On examination she appeared in good health and spirits, she does not appear to be in any distress. Vital signs as documented. Skin warm and dry and without overt rashes. Neck without JVD, thyroid appears normal, trachea is midline, neck is supple. Lungs clear, normal air movement was noted. Heart exam notable for regular rhythm, normal sounds and absence of murmurs, rubs or gallops. Abdomen unremarkable and without evidence of organomegaly, masses, or abdominal aortic enlargement, bowel sounds are present in all 4 quadrants, no abdominal tenderness was noted. Extremities nonedematous, no cyanosis was noted, no clubbing was noted. Neuro: Cranial nerves II through XII are grossly intact, no focal motor deficits were noted, sensation to light touch and pinprick is intact, motor exam 5/5 throughout. Psych: Patient is alert and oriented x3, she does not appear anxious or depressed, she does not appear agitated. Patient was discharged home in stable condition on 02/14/2025. Weight / BMI Weight Weight: 92.8 kg Body Mass Index (BMI) 34.9 ABG / Lab / Microbiology Data 02/14/25 03:58 02/14/25 03:58 Laboratory: Laboratory Results - last 24 hr 02/13/25 14:05: Sodium 140, Potassium 3.6, Chloride 99, Carbon Dioxide 25.5, Anion Gap 15, BUN 17, Creatinine 0.68 L, Estim Creat Clear Calc 112.09, Est GFR (MDRD) Non-Af 106, BUN/Creatinine Ratio 24.3 H, Glucose 112 H, Hemoglobin A1c 5.6, Calcium 9.8, Troponin T High Sens < 6 02/13/25 16:45: Troponin T Hi Sens 2 Hr < 6 02/13/25 19:40: Troponin T Hi Sens 4Hr < 6 02/14/25 03:58: WBC 7.3, RBC 4.51, Hgb 13.4, Hct 39.3, MCV 87.1, MCH 29.7, MCHC 34.1, RDW Std Deviation 42.7, RDW Coeff of Pedrito 13.5, Plt Count 308, MPV 10.2, Immature Gran % (Auto) 0.300, Neut % (Auto) 46.0 L, Lymph % (Auto) 36.8, George % (Auto) 12.1 H, Eos % (Auto) 4.0, Baso % (Auto) 0.8, Absolute Neuts (auto) 3.4, Absolute Lymphs (auto) 2.70, Nucleated RBC % 0, Sodium 139, Potassium 3.4, Chloride 100, Carbon Dioxide 28.0, Anion Gap 11, BUN 15, Creatinine 0.57 L, Estim Creat Clear Calc 130.37, Est GFR (MDRD) Non-Af 111, BUN/Creatinine Ratio 27.1 H, Glucose 93, Calcium 9.5, Phosphorus 3.8, Magnesium 2.3 H, Total Bilirubin 0.56, AST 21, ALT 27, Alkaline Phosphatase 88, Total Protein 7.0, Albumin 4.1, Globulin 3.0, Albumin/Globulin Ratio 1.4, Triglycerides 47, Cholesterol 217 H, LDL Cholesterol, Calc 115, VLDL Cholesterol 9, HDL Cholesterol 94, Cholesterol/HDL Ratio 2.32 02/14/25 06:35: Urine Opiates Screen NEGATIVE, U Buprenorphine Qual NEGATIVE, Ur Oxycodone Screen NEGATIVE, Urine Methadone Screen NEGATIVE, Urine Fentanyl Screen NEGATIVE, Ur Barbiturates Screen NEGATIVE, Ur Phencyclidine Scrn NEGATIVE, Ur Amphetamines Screen NEGATIVE, U Benzodiazepines Scrn NEGATIVE, Urine Cocaine Screen NEGATIVE, U Cannabinoids Screen NEGATIVE Radiography Diagnostic Testing: Radiology Impression Brain MRI 02/13/25 15:14 IMPRESSION: Unremarkable brain MRI. No explanation for patient's symptoms. Reading Location: [facility] Cervical Spine MRI 02/13/25 15:14 IMPRESSION: 1. No findings in the cervical spine to explain patient's symptoms. 2. Mild spondylotic changes without any significant high-grade spinal canal or foraminal narrowing. 3. No cord signal abnormality or impingement. Reading Location: [facility] D/C Instructions Weight Bearing Status: Full weight bearing DC O2, CPAP, BIPAP Needs Home O2 Discharge instructions: No Meaningful Use Info Meaningful Use Meaningful Use Diagnoses (Choose all that apply): None applicable Discharge Plan Admission Admit Date/Time: 02/13/25 15:06 Primary Reason for Your Visit: complex migrane Attending Provider: Rickie Cervantes Primary Care Provider: Carlyn Taylor Consulting Providers: Ramírez iMtchell; Rodrigo Rodriguez; Jennifer Ramsey; Abbi Wallace; Silvia Curiel; Manoj Anthony; Ninfa Lorenzo; Jaren Diez; Maximiliano Ornelas; Scooter Lui; Ling Ashraf; Latoya Khan; Eugenio Miranda; Charmaine Rizo; Yvon Negron; Rory Estrada; Mejia Arce; Liz Sanchez; Quentin Orozco; Patricia Shafer; Lita Cuevas; Shantell Shafer Discharge Orders/Prescriptions Prescriptions: New hydrocodone-acetaminophen 5-325 mg tablet 2 tab PO Q6H 7 Days Qty: 40 0RF Rx Instructions: 1 or 2 every 6 hours as needed for dental pain Continued loratadine [Allergy Relief (loratadine)] 10 MG tablet 10 mg PO DAILY melatonin-pyridoxine HCl (B6) 1 EACH tablet, IR and ER, biphasic 1 ea PO QHS PRN (Reason: sleep) multivitamin Tablet 1 tab PO DAILY diazepam [Valium] 2 mg tablet 2 mg PO TID PRN (Reason: dizziness) Discontinued oxycodone-acetaminophen [Percocet] 5-325 mg tablet 1 tab PO Q8H PRN (Reason: pain) 4 Days Qty: 10 0RF Referrals / Follow Up: Carlyn Taylor MD [Primary Care Provider, Internal Medicine] - Within 1 Month Sujit Laughlin MD [Non-Staff -Ordering Privileges, Neurology] Disposition Disposition (needs filled in before D/C Order can be placed): Home, Self Care Charges/Coding Visit Charges Inpatient E&M: 53407 Disch Hosp
--- NOTE | 2025-02-14 15:03 | PHA.DC_ITS ---
Pharmacy [facility] has performed discharge medication counseling for this patient. The patient was counseled on the following discharge medications and changes in medications for homegoing review. - Hydrocodone/acetaminophen 5/325 mg tablet The Reason for Use, instructions for use, and potential side effects were reviewed for all new medications. The patient's questions regarding all of their medications were answered. The patient was able to verbally demonstrate an understanding of their discharge medications. Medications at Discharge Home Medications loratadine 10 mg tablet (Allergy Relief (loratadine)) 10 mg PO DAILY 11/29/16 melatonin ER 10 mg-pyridoxine HCl (B6) 10 mg tab, immed-extend release 1 ea PO QHS PRN sleep 11/29/16 multivitamin 1 tab PO DAILY 10/06/21 diazepam 2 mg tablet (Valium) 2 mg PO TID PRN dizziness 02/13/25 hydrocodone-acetaminophen 5-325mg 5mg-325mg 2 tab PO Q6H 7 days #40 tabs 02/14/25
== END 2025-02-14 14:57 | disposition home or self-care (01) ==
LOC: ED 15:31 → PCU 15:41
PROVIDERS: Admitting Provider Internal Medicine; Emergency Provider Emergency Medicine; PCP Internal Medicine; Visit Provider Internal Medicine
DX: G43.109 Migraine with aura, not intractable, without status migrainosus (principal); I10 Essential (primary) hypertension; K04.7 Periapical abscess without sinus; K02.9 Dental caries, unspecified; R29.703 NIHSS score 3; R73.9 Hyperglycemia, unspecified; H53.461 Homonymous bilateral field defects, right side; E66.9 Obesity, unspecified; R20.2 Paresthesia of skin; R94.31 Abnormal electrocardiogram [ECG] [EKG]; Z68.34 Body mass index [BMI] 34.0-34.9, adult; M50.30 Other cervical disc degeneration, unspecified cervical region; Z79.899 Other long term (current) drug therapy
CPT/HCPCS: 36415; 70450; 70496; 70498; 70553; 72141; 80048; 80053; 80061; 80307; 82962; 83036; 83735; 84100; 84484; 85025; 85610; 85730; 93005; 93306; 97162; 97166; 97802; 99221; 99285; A9575; Q9967; A4216; G0378